=== PATIENT | female | born 1960 | race Caucasian/White ===

== ENCOUNTER 2019-06-20 01:06 | Day surgery (SDC) | payer BC, SELFPAY ==
[2019-06-15 09:17] VITALS: BMI 42.7
[2019-06-20 07:58] VITALS: BMI 48.4
--- NOTE | 2019-06-20 08:14 | WPDANESEPPF ---
Anes - Initial Pre Proc Eval Procedure: Operation Date: 06/20/19 09:00 Proposed Procedures p Esophagogastroduodenoscopy - Des Banks MD Date/Time: 06/20/19 08:14 Surgeon: Des Banks MD Pre Op Diagnosis: Gerd/ Esophageal Web Patient Data Age: 58 Gender: F Height: 5 ft 10 in Weight: 153 kg Allergies Allergy/AdvReac Type Severity Reaction Status Date / Time No Known Allergies Allergy Unknown Verified 06/20/19 07:57 Home Medications Medication Instructions Recorded Confirmed Type indapamide 2.5 mg tablet 2.5 mg PO DAILY #90 tablet 03/22/19 06/15/19 Rx potassium chloride 20 mEq 20 meq PO DAILY #90 tablet 03/23/19 06/15/19 Rx tablet,extended release metoprolol tartrate 100 mg tablet 100 mg PO Q12H 04/25/19 06/15/19 History pantoprazole 40 mg tablet,delayed 40 mg PO QAM 04/25/19 06/15/19 History release Patient hx anesthesia problems: none Family hx anesthesia problems: none [facility] Past Medical History Medical History (Updated 05/30/19 @ 17:19 by Ale Muse MD) Abscess of anal and rectal regions BPPV (benign paroxysmal positional vertigo) Essential hypertension GERD with esophagitis History of one miscarriage Hyperlipidemia Pre-diabetes Surgical History Surgical History H/O section H/O dilation and curettage History of removal of cyst Tubal ligation status Social History Social History Smoking status: Never smoker Second hand tobacco smoke exposure: Yes Alcohol intake: current Substance use: current Substance use type: marijuana Gender identity (if verbalized by the patient): Female Anes - Eval Final PreProcedure Day of Procedure 06/20/19 08:14 Patient weight: morbidly obese Heart: regular rate and rhythm Lungs: clear to auscultation Airway: Mallampati scale class III Neurological: alert and oriented Last oral intake: >/= 8 hours ASA classification: III Emergent: no Anesthetic plan: proceed Anesthesia type and monitoring: general and standard monitoring Informed Consent: The patient's anesthetic plan and its attendant risks and benefits were discussed with the patient/family/POA. Questions were solicited and answers provided to the satisfaction of the patient/family/POA.
[2019-06-20 08:19] VITALS: BP 188/110; PULSE 59; RESP 18; TEMP 36.6; O2SAT 95
[2019-06-20] MEDS: LACTATED RINGERS 1,000 ML 150 ML IV CONT (08:22)
[2019-06-20 08:23] VITALS: BP 156/78
--- NOTE | 2019-06-20 08:56 | P.CONGI_ITS ---
Assessment and Plan Additional Plan This is a 58-year-old white female patient seen in evaluation at the request of Dr. Ale Muse. Patient has a history of dysphagia in GE reflux disease. EGD in February 2019 revealed severe esophagitis, distal esophageal web, and possible underlying Geiger's mucosa. She feels much improved but continues to have some mid epigastric discomfort. She swallows much better but may have some difficulty with really large pieces of food. She currently has no ongoing heartburn regurgitation is improved taking Protonix 40 mg p.o. daily. Past medical history is significant for GE reflux disease. Pre diabetes. Hyperlipidemia. Medications include pantoprazole 40 mg p.o. daily. Metoprolol. Indapamide. Potassium. No known drug allergies. Family history is noncontributory. On physical exam patient is alert. Vital signs stable. HEENT exam unremarkable. She is anicteric. Lungs are clear to auscultation and percussion. Heart is without murmur or extra sounds. Abdominal exam bowel sounds are present soft nontender with no organomegaly. Digital external rectal exam deferred today. Impression 1. GE reflux disease. She has a history of esophageal stricture ring. 2. Obesity. Plan is for follow-up EGD today to dilate if necessary and biopsy to exclude Geiger's esophagus. Anti-reflux measures are strongly encourage. In long-term acid suppression with pantoprazole also suggested. GI Consult Note Consult date/time: 06/20/19 08:56 HPI: Mandy Fontana is a 58 year old female [facility] Past Medical History Medical History (Updated 05/30/19 @ 17:19 by Ale Muse MD) Abscess of anal and rectal regions BPPV (benign paroxysmal positional vertigo) Essential hypertension GERD with esophagitis History of one miscarriage Hyperlipidemia Pre-diabetes Surgical History Surgical History H/O section H/O dilation and curettage History of removal of cyst Tubal ligation status Social History Social History Smoking status: Never smoker Second hand tobacco smoke exposure: Yes Alcohol intake: current Substance use: current Substance use type: marijuana Gender identity (if verbalized by the patient): Female Meds Home Medications and Allergies Home Medications Medication Instructions Recorded Confirmed Type indapamide 2.5 mg tablet 2.5 mg PO DAILY #90 tablet 03/22/19 06/15/19 Rx potassium chloride 20 mEq 20 meq PO DAILY #90 tablet 03/23/19 06/15/19 Rx tablet,extended release metoprolol tartrate 100 mg tablet 100 mg PO Q12H 04/25/19 06/15/19 History pantoprazole 40 mg tablet,delayed 40 mg PO QAM 04/25/19 06/15/19 History release Allergies Allergy/AdvReac Type Severity Reaction Status Date / Time No Known Allergies Allergy Unknown Verified 06/20/19 07:57 Vital Signs Vital Signs - 24 hr 06/20/19 08:19 06/20/19 08:23 Temperature 36.6 C Pulse Rate 59 L Respiratory Rate 18 Blood Pressure 188/110 H 156/78 H Pulse Oximetry 95
[2019-06-20] MEDS: BENZOCAINE (*SP) 60 ML SPRAY CAN (HURRICAINE) 1 SPRAY MUCOUS MEM (09:06)
[2019-06-20 09:18] VITALS: BP 163/93; PULSE 61; RESP 20; O2SAT 97
[2019-06-20 09:28] VITALS: BP 158/88; PULSE 61; RESP 18; O2SAT 97
[2019-06-20 09:38] VITALS: BP 170/90; PULSE 58; RESP 20; O2SAT 97
== END 2019-06-20 10:08 | disposition home or self-care (01) ==
PROVIDERS: PCP Family Medicine; Visit Provider Internal Medicine Gastroenterology
PROC: 0DJ08ZZ Inspection of Upper Intestinal Tract, Via Natural or Artificial Opening Endoscopic (ICD-10-PCS; CPT 43235; principal; 2019-06-20 09:00)
DX: Q39.4 Esophageal web (principal); K21.9 Gastro-esophageal reflux disease without esophagitis; I10 Essential (primary) hypertension; E78.5 Hyperlipidemia, unspecified; R73.03 Prediabetes; F12.90 Cannabis use, unspecified, uncomplicated
CPT/HCPCS: 43239; 43450; 88305; J2704; J7120

== ENCOUNTER 2021-02-16 10:24 | Outpatient (CLI) | payer BC, SELFPAY ==
--- NOTE | ~2021-02-16 | MM_ITS ---
EXAMINATION: MM screening anita BI w linette HISTORY: Screening mammogram, family history of breast cancer in her sister. TECHNIQUE: Craniocaudal and mediolateral oblique 3-D tomosynthesis images were obtained and synthetic 2-D images were generated. CAD analysis was submitted and interpreted. COMPARISON: 07/12/2013, 07/06/2012 BREAST PARENCHYMAL COMPOSITION: There are scattered areas of fibroglandular density. FINDINGS: There is no evidence of suspicious mass, calcification, or architectural distortion to sugg est malignancy in either breast. There has been no suspicious interval change. IMPRESSION: 1. No mammographic evidence of malignancy. 2. Recommend routine screening mammography in one year. BI-RADS Category 1: Negative Reviewed, dictated and finalized at location A.
== END 2021-02-16 10:25 | disposition home or self-care (01) ==
LOC: ANHIMG 10:26
PROVIDERS: PCP Family Medicine; Visit Provider Physician Assistant
DX: Z12.31 Encounter for screening mammogram for malignant neoplasm of breast (principal)
CPT/HCPCS: 77063; 77067

== ENCOUNTER → 2021-05-31 00:59 | Outpatient (CLI) | payer BC, SELFPAY ==
[2021-06-01 18:18] LABS: SARS-CoV-2 RNA PCR Positive
== END ==
PROVIDERS: PCP Family Medicine; Visit Provider Internal Medicine Gastroenterology
DX: U07.1 COVID-19 (principal)
CPT/HCPCS: C9803; U0003; U0005

== ENCOUNTER 2021-07-03 01:45 | Day surgery (SDC) | payer BC, SELFPAY ==
--- NOTE | 2021-06-25 14:28 | SUR.PREOP ---
Report to the Outpatient Waiting Room, entrance under the green pavilion located off [facility], at time __0600 on date __07/03/21 . OR Time: . - You will be asked a series of questions to screen for COVID 19 for your protection. - A mask is required within the hospital. - No visitors are allowed at this time. Preoperative COVID Testing Requirements: No COVID Test needed if: (proof is required; if not received patient will have Rapid Test prior to entry) - Patient has received COVID Vaccine at least 14 days prior to procedure date or - Patient has positive COVID test result within last 90 days of surgery date. COVID Test needed if above criteria is not met If not COVID vaccinated a COVID test must be conducted within 72 hours of surgery and patient is asked to isolate self from time of testing until procedure. You will go to the [facility] for your COVID testing. The [facility] site is located at the corner of [address] [facility]. You will only be called if COVID results are positive and your surgeon may reschedule your elective surgery date. Patients may have clear liquids (water, carbonated beverages, clear teas, apple juice) until 3 hours prior to surgery with a maximum of 20 ounces. - No food from midnight until time of surgery - Infants may have breast milk until 4 hours before surgery, infant formula 6 hours prior to surgery. - Children will be allowed to drink immediately following surgery. If applicable, please bring a bottle or sippy cup to assist with drinking. Juice, water, soda, and popsicles are readily available. For infants on formula, please bring formula the day of surgery. Pacifiers are allowed. Take the following medications with a SIP of water the morning of surgery: METOPROLOL Medications to discontinue per physician NONE Date to take last dose Please no make-up, nail bahamian, hairspray, perfume, deodorant, or body powder the day of surgery. No jewelry (including any body piercings) or valuables the day of surgery, leave them at home. Please take a shower or bath the night before, or the morning of, surgery with an antibacterial soap. Wear comfortable, loose fitting clothing. Children are encouraged to wear pajamas. - Jewelry must be removed prior to entering the operating room. Rings and piercings that are not removed may be cut off. - The hospital will not accept responsibility for valuables. - Please leave all valuables, including medications, at home the day of surgery. If you are going home after surgery, a licensed power screwdriver operator must drive you home. - NO public transportation without another adult. - We recommend that an adult stay with you for 24 hours following discharge. - We also recommend that you do not drive, make important decision, drink alcoholic beverages, or take any drugs that were not prescribed by your health care provider for at least 24 hours after your discharge time. For Pediatric surgeries, we recommend two adults accompany the child home (only one inside the building at this time). Follow any additional instructions given to you from your surgeon. Telephone instructions given to ___PATIENT and asked if any additional questions and then verbalized understanding. Patient advised to call surgeon office or pre surgery nurse liaison [phone] if any additional questions.
[2021-06-25 14:36] VITALS: BMI 45.8
--- NOTE | 2021-07-02 13:50 | WPDANESEPPF ---
Anes - Initial Pre Proc Eval Procedure: Operation Date: 07/03/21 07:30 Proposed Procedures p Excision of Right Dorsal Wrist Mass, Excision of Left Ulnar Forearm Mass - Saturnino Carranza MD Date/Time: 07/02/21 13:50 Surgeon: aSturnino Carranza MD Pre Op Diagnosis: Rt dorsal wrist mass, Lt ulnar forearm mass Patient Data Age: 60 Gender: F Height: 1.78 m Weight: 145 kg Allergies Allergy/AdvReac Type Severity Reaction Status Date / Time No Known Allergies Allergy Unknown Verified 07/03/21 07:19 Home Medications Medication Instructions Recorded Confirmed Type metoprolol tartrate 100 mg PO Q12H 05/30/21 07/03/21 History atorvastatin 20 mg tablet 20 mg PO HS #90 tablet 06/20/21 07/03/21 Rx indapamide 2.5 mg tablet 2.5 mg PO HS #90 tablet 06/20/21 07/03/21 Rx pantoprazole 40 mg tablet,delayed 40 mg PO HS #90 tablet 06/20/21 07/03/21 Rx release potassium chloride 20 mEq 20 meq PO HS #90 tablet 06/20/21 07/03/21 Rx tablet,extended release ergocalciferol (vitamin D2) 1,250 1,250 mcg PO WEEKLY #14 cap 06/21/21 07/03/21 Rx mcg (50,000 unit) capsule Patient hx anesthesia problems: none Family hx anesthesia problems: none Results Review: All pre-operative results and documents have been reviewed as part of the pre-operative evaluation. [facility] Past Medical History Medical History (Updated 05/09/21 @ 22:40 by Kim Sommers MD) Abscess of anal and rectal regions BPPV (benign paroxysmal positional vertigo) Chest congestion Diabetes Dysfunction of right eustachian tube Essential hypertension GERD with esophagitis History of one miscarriage Hyperlipidemia Pre-diabetes Surgical History Surgical History H/O section H/O dilation and curettage History of removal of cyst Tubal ligation status Family History Family History Other Carcinoma of colon Diabetes mellitus Family history of cardiovascular disease Family history of coronary artery disease Family history of lung cancer Family history of malignant neoplasm Social History Social History Smoking status: Never smoker Second hand tobacco smoke exposure: Yes Alcohol intake: never Alcohol use details: Maybe twice a year. Substance use: current Substance use type: marijuana Other substance usage details: daily for chronic back pain Last use: 05/18/21 Living arrangements: with family Gender identity (if verbalized by the patient): Female Spiritual care concerns: No Anes - Eval Final PreProcedure Day of Procedure 07/02/21 13:50 Patient weight: morbidly obese Heart: regular rate and rhythm Lungs: clear to auscultation Airway: Mallampati scale class III Neurological: alert and oriented Last oral intake: >/= 8 hours ASA classification: III Emergent: no Anesthetic plan: proceed Anesthesia type and monitoring: general GIVS and standard monitoring Results Review: All pre-operative results and documents have been reviewed as part of the pre-operative evaluation. Informed Consent: The patient's anesthetic plan and its attendant risks and benefits were discussed with the patient/family/POA. Questions were solicited and answers provided to the satisfaction of the patient/family/POA.
[2021-07-03 06:30] VITALS: BP 195/98; PULSE 66; RESP 16; TEMP 36.7; O2SAT 97
[2021-07-03] MEDS: LACTATED RINGERS 1,000 ML 30 ML IV CONT ×2 (06:45→08:34)
--- NOTE | 2021-07-03 07:10 | WPDHPUPDATE1 ---
History and Physical Update Update Date/Time: 07/03/21 07:10 History and Physical has been reviewed, including an updated exam of the patient. There are NO changes in the patient's condition. Risks, benefits, and alternatives have been discussed and questions answered. Patient agrees to proceed with procedure.
[2021-07-03] MEDS: LIDO 1%/EPINEPHRINE/PF 1:200,000 30 ML VIAL XX (08:25)
[2021-07-03 08:34] VITALS: BP 166/77; PULSE 63; RESP 16; O2SAT 96
--- NOTE | 2021-07-03 08:39 | P.OP_ITS ---
Procedure Note - Detailed Date of Procedure 07/03/21 Pre-op Diagnosis Rt dorsal wrist mass, Lt ulnar forearm mass Post-op Diagnosis other (Right dorsal wrist ganglion cyst. Subcutaneous mass of unspecified behavior.) Procedure Performed Excision of right dorsal wrist ganglion cyst. Excision of subcutaneous mass of unspecified behavior left ulnar forearm. Surgeon Saturnino Carranza MD [employer] Findings Ganglion cyst of the right dorsal wrist. Fatty mass of the left ulnar forearm Description of Procedure The right dorsal wrist and the left ulnar forearm sites were marked with the patient's cooperation in the holding area. She was rolled to the operating room and placed supine on the operating table. Both extremities were prepped on separate arm boards. A time-out was held and confirmed. She was given IV sedation. The 2 sites were identified again and marked for the incisions and locally anesthetized with 1% lidocaine with epinephrine. The right upper extremity was done 1st with elevation of the forearm tourniquet to 250 milliliter of mercury. The transverse incision was made and blunt dissection through the subcutaneous tissue to the level of the extensor tendons was carried out and the dorsal surface of the slightly purpuric ganglion cyst was identified. The cyst was over cm and diameter. Was carefully dissected around its periphery down to the joint capsule. Was taken off at that level the joint capsule was not compromised. The specimen was removed but not sent to pathology. Several bleeding points were electrocoagulated. No deeper subcutaneous tissues were placed. The skin was repaired in the superficial fascia with 4-0 Monocryl and in the dermis with a running 4-0 Monocryl. Attention was turned then to the left side the site was easily identified by digital palpation in the longitudinal incision was made over the ulnar border of the ulna. Blunt dissection revealed a fat colored firm lobulated mass loosely attached to the periosteum. This was removed with sharp and blunt dissection the specimen was sent to pathology. This wound was then closed with interrupted 4-0 Monocryl in the dermis and a Xeroform gauze bandage applied over that. The right wrist was dressed in similar fashion both sides had Juan Daniel wraps the patient is discharged from the operating room stable condition a prescription for hydrocodone 5/ number 8 was sent to her pharmacy [facility] No Packing No Pathology yes Complications No immediate complications Condition stable Disposition same day
[2021-07-03 08:41] LABS: Glucose Point of Care 116 mg/dl (65-105)
[2021-07-03 09:00] VITALS: BP 177/72; PULSE 58; RESP 16
[2021-07-03 09:30] VITALS: BP 171/83; PULSE 56; RESP 16; O2SAT 96
== END 2021-07-03 09:50 | disposition home or self-care (01) ==
PROVIDERS: PCP Family Medicine; Visit Provider Plastic Surgery
PROC: (CPT 25111; principal; 2021-07-03 07:30)
DX: M67.431 Ganglion, right wrist (principal); D17.21 Benign lipomatous neoplasm of skin and subcutaneous tissue of right arm; I10 Essential (primary) hypertension; E78.5 Hyperlipidemia, unspecified; K21.9 Gastro-esophageal reflux disease without esophagitis; E11.9 Type 2 diabetes mellitus without complications; F12.90 Cannabis use, unspecified, uncomplicated; E66.01 Morbid (severe) obesity due to excess calories; Z68.42 Body mass index [BMI] 45.0-49.9, adult
CPT/HCPCS: 25111; 25075; 82948; 88304; A9270; J1100; J2250; J2405; J2704; J3010; J7120

== ENCOUNTER 2021-07-04 00:23 | Day surgery (SDC) | payer BC, SELFPAY ==
[2021-05-30 14:29] VITALS: BMI 41.6
--- NOTE | 2021-06-01 19:16 | SUR.PREOP ---
CALLED PATIENT WITH HER POSITIVE COVID TEST RESULTS. PT STATED SHE THOUGHT SHE HAS A SINUS INFECTION AND WAS PLACED ON ANTIBIOTICS WITH NO IMPROVEMENT AND WAS WANDERING IF SHE MAYBE COVID POSITIVE. OFFERED TO TALK WITH DOCTOR ABOUT STILL DOING HER CASE ON THURSDAY AND PATIENT DECLINED AND SAID SHE DIDN'T WANT TO PUT ANYONE RISK. PT RE-SCHEDULED ON 07-04 AT 830 AM PROCEDURE TIME WITH AN ARRIVAL TIME OF 700 AM.
[2021-06-26 16:05] VITALS: BMI 41.6
--- NOTE | 2021-07-04 07:25 | WPDGICN ---
Assessment and Plan Assessment and plan (1) Dysphagia: Code(s): R13.10 - Dysphagia, unspecified Status: Acute Assessment and Plan: Patient has dysphagia. With a history of acid reflux and distal esophageal web formation. Plan is for EGD to assess more thoroughly possibly for dilatation of this web. Further recommendations will be given after endoscopy. Continuing PPI therapy advised. (2) Geiger's esophagus: Code(s): K22.70 - Geiger's esophagus without dysplasia Status: Acute Assessment and Plan: Patient known to have Geiger's esophagus on the basis of chronic GE reflux. Previously no evidence of dysplasia. Plan is for surveillance EGD now and consider this at least a 3 year intervals in the future. (3) Morbid obesity with body mass index (BMI) of 45.0 to 49.9 in adult: Code(s): E66.01 - Morbid (severe) obesity due to excess calories; Z68.42 - Body mass index [BMI] 45.0-49.9, adult Status: Acute Assessment and Plan: Weight loss with dietary calorie restriction increase activity is strongly encouraged. GI Consult Note Consult date/time: 07/04/21 07:25 HPI: Mandy Fontana is a 60 year old female presents for EGD. Patient has a known history of Geiger's esophagus. She has noticed over the last several months difficulty swallowing foods. Foods even liquids will hang up in the lower chest on swallowing. She denies any significant heartburn. She has been maintained on pantoprazole 40mg p.o. daily. Her last EGD in 2019 revealed distal esophageal web that was dilated. Plan is for recurrent EGD at this time. Patient reports recent wrist surgery for ganglion cyst. Hands are still bandaged. Review of Systems Review of Systems: All systems reviewed & are unremarkable except as noted in HPI and below PMFSH Past Medical History Medical History (Updated 07/04/21 @ 07:27 by Des Banks MD) Abscess of anal and rectal regions BPPV (benign paroxysmal positional vertigo) Chest congestion Diabetes Dysfunction of right eustachian tube Essential hypertension GERD with esophagitis History of one miscarriage Hyperlipidemia Pre-diabetes Surgical History Surgical History H/O section H/O dilation and curettage History of removal of cyst Tubal ligation status Family History Family History Other Carcinoma of colon Diabetes mellitus Family history of cardiovascular disease Family history of coronary artery disease Family history of lung cancer Family history of malignant neoplasm Social History Social History Smoking status: Never smoker Second hand tobacco smoke exposure: Yes Alcohol intake: never Alcohol use details: Maybe twice a year. Substance use: current Substance use type: marijuana Other substance usage details: daily for chronic back pain Last use: 05/18/21 Living arrangements: with family Gender identity (if verbalized by the patient): Female Spiritual care concerns: No Meds Home Medications and Allergies Home Medications Medication Instructions Recorded Confirmed Type metoprolol tartrate 100 mg PO Q12H 05/30/21 07/03/21 History atorvastatin 20 mg tablet 20 mg PO HS #90 tablet 06/20/21 07/03/21 Rx indapamide 2.5 mg tablet 2.5 mg PO HS #90 tablet 06/20/21 07/03/21 Rx pantoprazole 40 mg tablet,delayed 40 mg PO HS #90 tablet 06/20/21 07/03/21 Rx release potassium chloride 20 mEq 20 meq PO HS #90 tablet 06/20/21 07/03/21 Rx tablet,extended release ergocalciferol (vitamin D2) 1,250 1,250 mcg PO WEEKLY #14 cap 06/21/21 07/03/21 Rx mcg (50,000 unit) capsule hydrocodone-acetaminophen 1 tablet PO Q6H PRN #10 tablet MDD 07/03/21 Rx 6 Allergies Allergy/AdvReac Type Severity Reaction Status Date / Time No Known Allergi
[2021-07-04 07:26] VITALS: BP 182/92; PULSE 63; RESP 18; TEMP 36.8; O2SAT 97; BMI 46.8
[2021-07-04] MEDS: LACTATED RINGERS 1,000 ML 30 ML IV CONT (07:35)
--- NOTE | 2021-07-04 07:38 | WPDANESEPPF ---
Anes - Initial Pre Proc Eval Procedure: Operation Date: 07/04/21 08:30 Proposed Procedures p Esophagogastroduodenoscopy - Des Banks MD Date/Time: 07/04/21 07:38 Surgeon: Des Banks MD Pre Op Diagnosis: dysphagia Patient Data Age: 60 Gender: F Height: 1.78 m Weight: 148.2 kg Last Vital Signs Temp 36.8 C 07/04/21 07:26 Pulse 63 07/04/21 07:26 Resp 18 07/04/21 07:26 BP 182/92 H 07/04/21 07:26 Pulse Ox 97 07/04/21 07:26 Allergies Allergy/AdvReac Type Severity Reaction Status Date / Time No Known Allergies Allergy Unknown Verified 07/04/21 07:24 Home Medications Medication Instructions Recorded Confirmed Type metoprolol tartrate 100 mg PO Q12H 05/30/21 07/03/21 History atorvastatin 20 mg tablet 20 mg PO HS #90 tablet 06/20/21 07/03/21 Rx indapamide 2.5 mg tablet 2.5 mg PO HS #90 tablet 06/20/21 07/03/21 Rx pantoprazole 40 mg tablet,delayed 40 mg PO HS #90 tablet 06/20/21 07/03/21 Rx release potassium chloride 20 mEq 20 meq PO HS #90 tablet 06/20/21 07/03/21 Rx tablet,extended release ergocalciferol (vitamin D2) 1,250 1,250 mcg PO WEEKLY #14 cap 06/21/21 07/03/21 Rx mcg (50,000 unit) capsule hydrocodone-acetaminophen 1 tablet PO Q6H PRN #10 tablet MDD 07/03/21 Rx 6 Patient hx anesthesia problems: none Family hx anesthesia problems: none Results Review: All pre-operative results and documents have been reviewed as part of the pre-operative evaluation. COUNTS INCLUDE 234 BEDS AT THE [facility] Past Medical History Medical History Abscess of anal and rectal regions BPPV (benign paroxysmal positional vertigo) Chest congestion Diabetes Dysfunction of right eustachian tube Essential hypertension GERD with esophagitis History of one miscarriage Hyperlipidemia Pre-diabetes Surgical History Surgical History H/O section H/O dilation and curettage History of removal of cyst Tubal ligation status Family History Family History Other Carcinoma of colon Diabetes mellitus Family history of cardiovascular disease Family history of coronary artery disease Family history of lung cancer Family history of malignant neoplasm Social History Social History Smoking status: Never smoker Second hand tobacco smoke exposure: Yes Alcohol intake: never Alcohol use details: Maybe twice a year. Substance use: current Substance use type: marijuana Other substance usage details: daily for chronic back pain Last use: 05/18/21 Living arrangements: with family Gender identity (if verbalized by the patient): Female Spiritual care concerns: No Anes - Eval Final PreProcedure Day of Procedure 07/04/21 07:38 Patient weight: morbidly obese Heart: regular rate and rhythm Lungs: clear to auscultation Airway: Mallampati scale class III Neurological: alert and oriented Last oral intake: >/= 8 hours ASA classification: III Emergent: no Anesthetic plan: proceed Anesthesia type and monitoring: general GIVS and standard monitoring Results Review: All pre-operative results and documents have been reviewed as part of the pre-operative evaluation. Informed Consent: The patient's anesthetic plan and its attendant risks and benefits were discussed with the patient/family/POA. Questions were solicited and answers provided to the satisfaction of the patient/family/POA.
[2021-07-04] MEDS: BENZOCAINE (*SP) 60 ML SPRAY CAN (HURRICAINE) 1 SPRAY MUCOUS MEM (08:40)
[2021-07-04 08:42] VITALS: BP 167/97; PULSE 73; RESP 16; O2SAT 95
[2021-07-04 08:52] VITALS: BP 161/97; PULSE 69; RESP 18; O2SAT 97
[2021-07-04 09:02] VITALS: BP 174/98; PULSE 61; RESP 19; O2SAT 97
== END 2021-07-04 09:21 | disposition home or self-care (01) ==
PROVIDERS: PCP Family Medicine; Visit Provider Internal Medicine Gastroenterology
PROC: 0DJ08ZZ Inspection of Upper Intestinal Tract, Via Natural or Artificial Opening Endoscopic (ICD-10-PCS; CPT 43235; principal; 2021-07-04 08:30)
DX: R13.10 Dysphagia, unspecified (principal); K22.70 Barrett's esophagus without dysplasia; E66.01 Morbid (severe) obesity due to excess calories; Z68.42 Body mass index [BMI] 45.0-49.9, adult; E11.9 Type 2 diabetes mellitus without complications; K21.9 Gastro-esophageal reflux disease without esophagitis; I10 Essential (primary) hypertension; E78.5 Hyperlipidemia, unspecified; F12.90 Cannabis use, unspecified, uncomplicated; Z79.891 Long term (current) use of opiate analgesic
CPT/HCPCS: 43239; 43450; 88305; J2704; J7120

== ENCOUNTER 2021-12-26 13:12 | Outpatient (CLI) | payer BC, SELFPAY ==
[2021-12-26 19:05] LABS: Alanine Aminotransferase 29 U/L (6-35); Albumin Level 4.4 g/dL (3.5-5.1); Alkaline Phosphatase 140 U/L (38-126); Anion Gap 8 mmol/L (8-16); Aspartate Amino Transferase 28 U/L (14-36); Bilirubin,Total 1.1 mg/dL (0.2-1.3); Blood Urea Nitrogen 17 mg/dL (7-17); Calcium 10.3 mg/dL (8.4-10.2); Carbon Dioxide 31 mmol/L (22-30); Chloride 98 mmol/L (98-107); Cholesterol 174 mg/dL (0-200); Estimated Glomerular Filt Rate 57; Glucose 137 mg/dL (65-110); HDL Direct 45 mg/dL; Potassium 3.5 mmol/L (3.4-5.0); Sodium 137 mmol/L (137-145); Triglycerides 154 mg/dL (<150)
[2021-12-26 19:16] LABS: LDL Cholesterol Direct 95 mg/dL
[2021-12-26 19:22] LABS: Hemoglobin A1C 6.7 % (<5.7)
[2021-12-26 19:27] LABS: Vitamin D 25 Hydroxy 45.8 ng/mL
== END 2021-12-26 13:13 | disposition home or self-care (01) ==
LOC: ANHGOSHLAB 13:14
PROVIDERS: PCP Family Medicine; Visit Provider Family Medicine
DX: E78.2 Mixed hyperlipidemia (principal); I10 Essential (primary) hypertension; R73.03 Prediabetes; E55.9 Vitamin D deficiency, unspecified
CPT/HCPCS: 36415; 80053; 80061; 82306; 83036

== ENCOUNTER 2022-04-25 13:05 | Outpatient (CLI) | payer BC, SELFPAY ==
[2022-04-25 19:41] LABS: Anion Gap 7 mmol/L (8-16); Blood Urea Nitrogen 18 mg/dL (7-17); Calcium 9.8 mg/dL (8.4-10.2); Carbon Dioxide 33 mmol/L (22-30); Chloride 95 mmol/L (98-107); Estimated Glomerular Filt Rate 51; Glucose 123 mg/dL (65-110); Potassium 3.6 mmol/L (3.4-5.0); Sodium 135 mmol/L (137-145)
== END 2022-04-25 13:06 | disposition home or self-care (01) ==
LOC: ANHGOSHLAB 13:07
PROVIDERS: PCP Family Medicine; Visit Provider Physician Assistant
DX: E87.5 Hyperkalemia (principal)
CPT/HCPCS: 36415; 80048

== ENCOUNTER 2022-08-11 12:30 | Outpatient (CLI) | payer BC, SELFPAY ==
[2022-08-11 19:31] LABS: Anion Gap 6 mmol/L (8-16); Blood Urea Nitrogen 19 mg/dL (7-17); Calcium 10.6 mg/dL (8.4-10.2); Carbon Dioxide 33 mmol/L (22-30); Chloride 103 mmol/L (98-107); Estimated Glomerular Filt Rate > 60; Glucose 140 mg/dL (65-110); Potassium 3.9 mmol/L (3.4-5.0); Sodium 142 mmol/L (137-145)
== END 2022-08-11 12:31 | disposition home or self-care (01) ==
LOC: ANHGOSHLAB 12:31
PROVIDERS: PCP Family Medicine; Visit Provider Physician Assistant
DX: N28.9 Disorder of kidney and ureter, unspecified (principal)
CPT/HCPCS: 36415; 80048

== ENCOUNTER 2023-07-10 13:03 | Emergency (ER) | payer BC, SELFPAY ==
--- NOTE | ~2023-07-10 | XR_ITS ---
EXAMINATION: XR chest 2V 07/10/2023 13:40 INDICATION: Cough, shortness of breath and low oxygen saturation. PROCEDURE: 2 view chest COMPARISON: Comparison to multiple prior studies sequentially, with oldest reviewed study dated 06/15. FINDINGS: The lungs are clear. The cardiomediastinal silhouette is within normal limits. There are no pleural effusions. There is no pneumothorax suspected. IMPRESSION: 1: NO ACUTE CARDIOPULMONARY DISEASE. Reviewed, dictated and finalized at location A. TH AND SAFETY ADVISOR
[2023-07-10 13:14] VITALS: BP 151/99; PULSE 78; RESP 16; TEMP 37; O2SAT 94
[2023-07-10 13:21] VITALS: BP 151/99; PULSE 78; RESP 16; TEMP 37; O2SAT 94
--- NOTE | 2023-07-10 13:26 | ED.URI ---
HPI - URI/Sore Throat General Chief Complaint: Upper Respiratory Infection Stated Complaint: Congestion/can't catch breath Time Seen by Provider: 07/10/23 13:26 Source: patient Mode of arrival: ambulatory Limitations: no limitations History of Present Illness HPI Narrative: 62 yo F presents with c/o cough, chest congestion, wheezing and SOB for past few days. Reports cough since mid may. Has not seen PCP for cough. Concerned for pneumonia due to recent SOB with coughing. Reports hx of bronchitis. All systems reviewed and negative except as noted above. Related Data Allergies Allergy/AdvReac Type Severity Reaction Status Date / Time No Known Allergies Allergy Unknown Verified 04/25/22 14:09 Review of Systems Review of Systems: CONSTITUTIONAL: Denies fever, chills, or sweats. Reports fatigue. EYES: Denies visual changes, redness, or discharge. ENT: Reports rhinorrhea, congestion. Denies sore throat, or otalgia. CARDIOVASCULAR: Denies chest pain, palpitations, or edema. RESPIRATORY: Reports cough and dyspnea with coughing. GASTROINTESTINAL: Denies abdominal pain, nausea, vomiting, or diarrhea. GENITOURINARY: Denies dysuria or hematuria. SKIN: Denies rash or itching. MUSCULOSKELETAL: Denies back pain, joint pain, or myalgia. NEUROLOGIC: Denies headache, numbness, or weakness. PSYCHIATRIC: Denies anxiety or depression. All other systems reviewed are negative, except as documented in HPI. COUNT INCLUDES THE [facility] Past Medical History Medical History Abscess of anal and rectal regions BPPV (benign paroxysmal positional vertigo) Chest congestion Diabetes Dysfunction of right eustachian tube Essential hypertension GERD with esophagitis History of one miscarriage Hyperlipidemia Pre-diabetes Vitamin D deficiency Surgical History Surgical History H/O section H/O dilation and curettage History of removal of cyst Tubal ligation status Family History Family History Other Carcinoma of colon Diabetes mellitus Family history of cardiovascular disease Family history of coronary artery disease Family history of lung cancer Family history of malignant neoplasm Social History Social History (Updated 04/25/22 @ 14:08 by Sayra Garcia CMA) Smoking status: Never smoker Second hand tobacco smoke exposure: Yes Alcohol intake: never Alcohol use details: Maybe twice a year. Substance use: current Substance use type: marijuana Other substance usage details: daily for chronic back pain Last use: 05/18/21 Lack of Transportation: No Lack of Food: Never True Current Housing: I Have Housing Concerned About Future Housing: No Difficulty Paying Gas/Electric Bills: No Difficulty Paying for Meds: No Currently Unemployed: No Education: High School Diploma/GED Difficulty w/ Childcare or Family Care: No Living arrangements: with family Occupation/Education: retired Gender identity (if verbalized by the patient): Female Sexual Orientation (if Verbalized by the Patient): Straight or Heterosexual Spiritual care concerns: No Agree to blood products: Yes Comments At time of signature, agree with nursing past medical, surgical, social and family history. There is no relevant family history pertinent to the presenting complaint. Exam Narrative: GENERAL: This is a well-nourished, well-developed patient, in no apparent distress. HEAD: normocephalic, atraumatic. EYES: PERRL. Sclera clear/white. Vision is grossly intact. EARS: External ears normal, auditory canals clear and without drainage, TMs normal without perforation. Hearing grossly intact. NOSE: External nose normal with no obvious nasal discharge, nares without redness, no rhinorrhea. THROAT: Mucous membranes moist, posterior pharynx clear. NECK: Neck supple, non-tender
[2023-07-10] MEDS: ALBUTEROL SULFATE NEB 2.5 MG/3 ML INH INHALATION (13:57)
[2023-07-10] MEDS: predniSONE 20 MG TABLET 40 MG PO (13:57)
[2023-07-10] MEDS: IPRATROPIUM BR 0.02% INH SOLN 0.5 MG/2.5 ML VIAL INHALATION (13:57)
[2023-07-10 14:22] VITALS: PULSE 76; RESP 20
== END 2023-07-10 14:37 | disposition home or self-care (01) ==
PROVIDERS: Emergency Provider Nurse Practitioner Family; PCP Family Medicine
DX: J02.9 Acute pharyngitis, unspecified (principal); E11.9 Type 2 diabetes mellitus without complications; I10 Essential (primary) hypertension; K21.00 Gastro-esophageal reflux disease with esophagitis, without bleeding; E78.5 Hyperlipidemia, unspecified; E55.9 Vitamin D deficiency, unspecified
CPT/HCPCS: 71046; 94640; 99213; G0463; J7512

== ENCOUNTER 2023-11-02 08:54 | Outpatient (CLI) | payer BC, SELFPAY ==
[2023-11-02 13:37] LABS: Basophils Percent Auto 0.4 % (0.2-1.2); Eosinophils Absolute Auto 0.3 K/mm3 (0-0.3); Eosinophils Percent Auto 4.6 % (0-4.4); Hemoglobin 13.6 g/dL (12.0-15.0); Immature Granulocyte Absolute 0.03 K/mm3 (0.00-0.031); Immature Granulocyte Percent A 0.4 % (0-0.5); Lymphocytes Absolute Auto 2.65 K/mm3 (0.9-3.2); Lymphocytes Percent Auto 36.8 % (18.3-44.2); Mean Corpuscular HGB Conc 31.6 g/dl (32-36); Mean Corpuscular Hemoglobin 27.8 pg (26-34); Mean Corpuscular Volume 87.8 fl (80-100); Mean Platelet Volume 9.9 fl (7.4-10.4); Monocytes Absolute Auto 0.5 K/mm3 (0.1-0.6); Monocytes Percent Auto 6.3 % (2.6-8.5); Neutrophils Absolute Auto 3.7 K/mm3 (1.3-6.7); Neutrophils Percent Auto 51.5 % (45.5-73.1); Platelet Count Result 207 k/mm3 (150-375); Red Cell Distribution Width 13.6 % (11.5-14.5); White Blood Count 7.2 K/mm3 (4.5-10.0)
[2023-11-02 13:51] LABS: Alanine Aminotransferase 24 U/L (6-35); Albumin Level 4.3 g/dL (3.5-5.1); Alkaline Phosphatase 133 U/L (38-126); Anion Gap 7 mmol/L (4-12); Aspartate Amino Transferase 49 U/L (14-36); Bilirubin,Total 0.8 mg/dL (0.2-1.3); Blood Urea Nitrogen 17 mg/dL (7-17); Calcium 10.1 mg/dL (8.4-10.2); Carbon Dioxide 30 mmol/L (22-30); Chloride 104 mmol/L (98-107); Cholesterol 235 mg/dL (0-200); Estimated Glomerular Filt Rate > 60; Glucose 125 mg/dL (65-110); HDL Direct 45 mg/dL; Potassium 3.5 mmol/L (3.4-5.0); Sodium 141 mmol/L (137-145); Triglycerides 199 mg/dL (<150)
[2023-11-02 14:02] LABS: LDL Cholesterol Direct 143 mg/dL
[2023-11-02 14:09] LABS: Microalbumin Urine Random 15.6 mg/L (0-16.7)
[2023-11-02 14:11] LABS: Creatinine Urine 89.3 mg/dL; MALB Creatinine Ratio 17.5 mg/g (0-30)
== END 2023-11-02 08:55 | disposition home or self-care (01) ==
LOC: ANHGOSHLAB 08:56
PROVIDERS: PCP Family Medicine; Visit Provider Family Medicine
DX: E11.9 Type 2 diabetes mellitus without complications (principal); E78.2 Mixed hyperlipidemia; R53.83 Other fatigue; R06.09 Other forms of dyspnea
CPT/HCPCS: 36415; 80053; 80061; 82043; 83036; 84443; 85025

== ENCOUNTER 2023-12-16 08:32 | Outpatient (CLI) | payer BC, SELFPAY ==
--- NOTE | ~2023-12-16 | XR_ITS ---
Clinical Indication: Chest pain PA and lateral views of the chest: Comparison: 07/10/2023 Findings: Stable calcified left upper lobe granuloma. The lungs are otherwise clear, without evidence of focal consolidation or pleural effusion. Cardiomediastinal silhouette is within normal limits. B ones and soft tissues are unremarkable. Impression: No significant abnormality. Reviewed, dictated and finalized at location . Impression: No significant abnormality.
--- NOTE | ~2023-12-16 | NM_ITS ---
EXAMINATION: NM harjinder stress w perfusion DATE: 12/16/2023 10:18 INDICATION: Chest pain. TECHNIQUE: Rest images were obtained following intravenous administration of 9.2 mCi Tc99m tetrofosmi n (Myoview). The patient was infused intravenously with Lexiscan (regadenoson). Then, 29.7 mCi Tc99m tetrofosmin (Myoview) was administered intravenously, and stress images were obtained. Data was recon structed into short axis and horizontal and vertical long axis SPECT images. Gated SPECT images were also obtained. COMPARISON: None. FINDINGS: There is no definite reversible or fixed perfusion abnormality to suggest ischemia or infar ction. There is no segmental wall motion abnormality. Left ventricular ejection fraction measures > 70%. IMPRESSION: 1. No definite ischemia or infarct. 2. Normal left ventricular ejection fraction measuring >70%. Reviewed, dictated and finalized at location A.
--- NOTE | 2023-12-16 08:49 | EST_ITS ---
Patient Info Name: Mandy Fontana Age: 63 years : 1960 Gender: Female Ht: 70 in Wt: 300 lbs BSA: 2.66 m2 HR: 64 bpm BP: 190 / 93 mmHg Heart Rhythm: Sinus Rhythm Exam Date: 12/16/2023 9:22 AM Exam Location: Echo Lab Patient Status: Outpatient Admit Date: 12/16/2023 Staff Ordering Physician: Kim Sommers MD Attending Provider: Kim Sommers MD Exercise Technologist: Radha Guerra CT Exercise Physician: Kevin Noriega DO Exam Type: CA stress harjinder w NM Study Info Indications R07.89 - Other chest pain A regadenoson stress test was performed. Summary 1. 1. Negative lexiscan stress test for ischemic ST changes by ECG criteria. 2. 2. Baseline hypertension. 3. 3. Nuclear scan to follow and will be reported separately. Please correlate with it. 4. 4. Patient informed of the above results. Protocol: Lexiscan Stress ECG Details Stage: REST Duration (min): 4 min : 8 sec HR (bpm): 62 SBP (mmHg): 200 DBP (mmHg): 104 Stage: REST Duration (min): 12 min : 55 sec HR (bpm): 63 SBP (mmHg): 190 DBP (mmHg): 93 Stage: STAGE 1 Duration (min): 0 min : 59 sec HR (bpm): 78 SBP (mmHg): 190 DBP (mmHg): 93 Stage: RECOVERY Duration (min): 1 min : 0 sec HR (bpm): 73 SBP (mmHg): 153 DBP (mmHg): 86 Stage: RECOVERY Duration (min): 2 min : 0 sec HR (bpm): 69 SBP (mmHg): 153 DBP (mmHg): 86 Stage: RECOVERY Duration (min): 3 min : 0 sec HR (bpm): 71 SBP (mmHg): 165 DBP (mmHg): 88 Stage: RECOVERY Duration (min): 3 min : 3 sec HR (bpm): 71 SBP (mmHg): 165 DBP (mmHg): 88 Rest HR: 63 bpm Peak HR: 78 bpm Rest Sys BP: 190 mmHg Peak Sys BP: 165 mmHg Max Pred HR: 159 bpm % Max Pred HR: 49 % Target HR: 135 bpm Max RPP: 12,870 bpm*mmHg Termination Reason: Completed protocol Cardiac Symptoms: Shortness of breath Total Time: 1 min : 0 sec Rest Estevez BP: 93 mmHg Peak Estevez BP: 88 mmHg Total Dose: 0.4 mg Resting ECG Sinus rhythm. Stress ECG No ST changes. Arrhythmias None. Report Signatures
== END 2023-12-16 08:33 | disposition home or self-care (01) ==
PROVIDERS: PCP Family Medicine; Visit Provider Family Medicine
DX: R07.9 Chest pain, unspecified (principal); R06.09 Other forms of dyspnea
CPT/HCPCS: 71046; 78452; 93017; A9502; J2785

== ENCOUNTER 2024-03-16 13:00 | Outpatient (CLI) | payer BC, SELFPAY ==
[2024-03-16 20:37] LABS: Alanine Aminotransferase 26 U/L (6-35); Albumin Level 4.6 g/dL (3.5-5.1); Alkaline Phosphatase 129 U/L (38-126); Anion Gap 9 mmol/L (4-12); Aspartate Amino Transferase 43 U/L (14-36); Bilirubin,Total 1.2 mg/dL (0.2-1.3); Blood Urea Nitrogen 17 mg/dL (7-17); Calcium 10.3 mg/dL (8.4-10.2); Carbon Dioxide 29 mmol/L (22-30); Chloride 103 mmol/L (98-107); Cholesterol 241 mg/dL (0-200); Estimated Glomerular Filt Rate 56; Glucose 109 mg/dL (65-110); HDL Direct 51 mg/dL; Potassium 3.1 mmol/L (3.4-5.0); Sodium 141 mmol/L (137-145); Triglycerides 125 mg/dL (<150)
[2024-03-16 20:47] LABS: LDL Cholesterol Direct 139 mg/dL
[2024-03-16 21:33] LABS: Hemoglobin A1C 6.7 % (<5.7)
== END 2024-03-16 13:01 | disposition home or self-care (01) ==
LOC: ANHGOSHLAB 13:01
PROVIDERS: PCP Family Medicine; Visit Provider Family Medicine
DX: E11.9 Type 2 diabetes mellitus without complications (principal); E78.2 Mixed hyperlipidemia
CPT/HCPCS: 36415; 80053; 80061; 83036

== ENCOUNTER 2024-04-20 16:07 | Emergency (ER) | payer BC, SELFPAY ==
[2024-04-20 16:15] VITALS: BP 200/81; PULSE 71; RESP 14; TEMP 36.8; O2SAT 99
--- NOTE | 2024-04-20 16:15 | ED.URI ---
HPI - URI/Sore Throat General Chief Complaint: Upper Respiratory Infection Stated Complaint: wound on back/poss bronchitis Time Seen by Provider: 04/20/24 16:17 Source: patient and RN notes reviewed Mode of arrival: ambulatory Limitations: no limitations History of Present Illness MD elicited complaint: cough and sore throat Related Data Allergies Allergy/AdvReac Type Severity Reaction Status Date / Time No Known Allergies Allergy Unknown Verified 03/21/24 13:38 Review of Systems Review of Systems: CONSTITUTIONAL: Denies malaise, chills, sweats, or fever. EYES: Denies visual changes, redness, or discharge. ENT: Reports rhinorrhea, congestion CARDIOVASCULAR: Denies chest pain, palpitations, or edema. RESPIRATORY: Reports cough. Denies dyspnea. GASTROINTESTINAL: Denies abdominal pain, nausea, vomiting, diarrhea SKIN: Reports the skin tag on her back that is inflamed it has drainage. MUSCULOSKELETAL: Denies myalgia. NEUROLOGIC: Denies headache. All systems reviewed & are unremarkable except as noted in HPI and below PMFSH Past Medical History Medical History Abscess of anal and rectal regions BPPV (benign paroxysmal positional vertigo) Chest congestion Diabetes Dysfunction of right eustachian tube Essential hypertension GERD with esophagitis History of one miscarriage Hyperlipidemia Pre-diabetes Vitamin D deficiency Surgical History Surgical History H/O section H/O dilation and curettage History of removal of cyst Tubal ligation status Family History Family History Other Carcinoma of colon Diabetes mellitus Family history of cardiovascular disease Family history of coronary artery disease Family history of lung cancer Family history of malignant neoplasm Social History Social History Smoking status: Never smoker Second hand tobacco smoke exposure: Yes Alcohol intake: never Alcohol use details: Maybe twice a year. Substance use: current Substance use type: marijuana Other substance usage details: daily for chronic back pain Last use: 05/18/21 Lack of Transportation: No Lack of Food: Never True Current Housing: I Have Housing Concerned About Future Housing: No Difficulty Paying Gas/Electric Bills: No Difficulty Paying for Meds: No Currently Unemployed: No Education: High School Diploma/GED Difficulty w/ Childcare or Family Care: No Living arrangements: with family Occupation/Education: retired Gender identity (if verbalized by the patient): Female Sexual Orientation (if Verbalized by the Patient): Straight or Heterosexual Spiritual care concerns: No Agree to blood products: Yes Comments At time of signature, agree with nursing past medical, surgical, social and family history. There is no relevant family history pertinent to the presenting complaint Exam Narrative: GENERAL: Well-appearing, well-nourished, and in no acute distress. HEAD: Normocephalic EYES: PERRLA, conjunctivae clear ENT: Nares clear, turbinates edematous and erythematous, clear discharge. Mucous membranes moist. TM pearly verde with dull light reflex bilaterally; no tragal tenderness. Oropharynx not erythematous without lesions. Tonsils not enlarged and without exudate, no drooling, no hoarseness, no trismus, uvula midline. NECK: Supple. No lymphadenopathy CHEST: Clear to auscultation, breath sounds equal. No wheezing, rhonchi, rales, or stridor. No respiratory distress, speaks in full sentences. HEART: Regular rate and rhythm. No murmur heard. SKIN: Warm dry. Large skin tag with excoriation, surrounding erythema noted to the back NEURO: Alert and oriented x3. PSYCH: Normal mood and affect Course Course Emergency Course: Patient is aware of diagnosis, understands and agrees to treatment plan. Anticipatory guidance given. Patient agrees to follow-up as directed and is aware of reasons to seek care at the emergency department. Portions of this record may have been created with voice recognition software Level of Care: Express Care Visit Vital Signs Vital signs: Reviewed. MDM - URI/Sore Throat MDM Narrative Medical decision making narrative: Differential diagnosis considered: Sena virus, strep pharyngitis, allergic rhinitis, upper respiratory tract infection, sinusitis, rhinosinusitis, nasopharyngitis. viral pharyngitis, otitis media, otitis externa, pneumonia, bronchitis, viral cough syndrome, viral syndrome, and influenza. Exam findings show no acute concerns or changes; patient is non-toxic appearing and is in no distress. Patient is appropriate for outpatient treatment and follow-up. Lab Data Attestation: I reviewed the patient's lab results. Critical Care Time Critical Care Time Critical Care Time: No Discharge Plan Discharge Clinical Impression: Bronchitis, Inflamed skin tag Patient Disposition: Home, Self-Care Condition: Stable Instructions: Antibiotic Form, Acute Bronchitis (ED) Additional Instructions: Please make appoint with your primary care provider for further evaluation of your skin tag. Take medication as prescribed Recommend antihistamine such as Benadryl at night time and Zyrtec or Kelley during the day Also, recommend symptomatic treatment includes: rest, fluids, and increase humidity of the air at home. Recommend Acetaminophen as directed on the bottle to reduce fever, pain, headache. Avoid smoking/second-hand smoke. Please schedule a follow-up visit with your personal physician for further evaluation and treatment within 3-5days. Including recheck and discussion of your blood pressure. If your symptoms persist, change or worsen significantly before you can contact your personal physician then please, without delay, go to the emergency department for further evaluation. Prescriptions: New doxycycline monohydrate 100 mg tablet 100 mg PO BID 7 Days Qty: 14 0RF dextromethorphan-guaifenesin [Mucinex DM] 60-1,200 mg tablet extended release 12 hr 1 tablet PO Q12H Qty: 12 0RF methylprednisolone [Medrol (Yunior)] 4 mg tablets,dose pack See Rx Instructions .ROUTE .COMPLEX Qty: 21 0RF Rx Instructions: orally per package directions No Action albuterol sulfate 90 mcg/actuation HFA aerosol inhaler 2 puff inhalation Q4-6H PRN (Reason: shortness of breath or wheezing) Qty: 8.5 0RF (DME) Aerochamber Plus Z Stat Spacer See Rx Instructions .Route Qty: 1 0RF Rx Instructions: As directed lisinopril 20 mg tablet 20 mg PO DAILY Qty: 90 1RF ergocalciferol (vitamin D2) 1,250 mcg (50,000 unit) capsule 1,250 mcg PO WEEKLY Qty: 14 1RF indapamide 1.25 mg tablet 1.25 mg PO DAILY Qty: 90 1RF potassium chloride 20 mEq tablet extended release 20 meq PO HS Qty: 90 1RF metoprolol tartrate 100 mg tablet 100 mg PO Q12H Qty: 180 1RF pantoprazole 40 mg tablet,delayed release (DR/EC) 40 mg PO HS Qty: 90 1RF Follow-up/Referrals: Kim Sommers MD [Primary Care Provider] - Time of Disposition: 16:25
[2024-04-20 16:16] VITALS: BP 200/81; PULSE 71; RESP 14; TEMP 36.8; O2SAT 99
== END 2024-04-20 16:32 | disposition home or self-care (01) ==
PROVIDERS: Emergency Provider Nurse Practitioner; PCP Family Medicine
DX: J40 Bronchitis, not specified as acute or chronic (principal); L91.8 Other hypertrophic disorders of the skin; E11.9 Type 2 diabetes mellitus without complications; I10 Essential (primary) hypertension; K21.00 Gastro-esophageal reflux disease with esophagitis, without bleeding; E78.5 Hyperlipidemia, unspecified
CPT/HCPCS: 99213; G0463

== ENCOUNTER 2024-08-10 08:46 | Outpatient (CLI) | payer BC, SELFPAY ==
--- NOTE | ~2024-08-10 | MM_ITS ---
EXAMINATION: MM screening anita BI w linette HISTORY: Screening TECHNIQUE: Craniocaudal and mediolateral oblique 3-D tomosynthesis images were obtained and synthetic 2-D images were generated. CAD analysis was submitted and interpreted. COMPARISON: 02/16/2021 and dating back to 01/02/2011 BREAST PARENCHYMAL COMPOSITION: There are scattered areas of fibroglandular density. FINDINGS: No suspicious microcalcifications or architectural distortion. Focal asymmetry within the upper outer right breast, possibly an intramammary lymph node although not present on the previous examinations for which spot compression followed by a focused ultrasound is recommended for confirmation. IMPRESSION: Focal asymmetry within the upper outer right breast, possibly an intramammary lymph node although not present on the previous examinations for which spot compression followed by a focused ultrasound is recommended for confirmation. BI-RADS Category 0: Incomplete: Needs additional imaging evaluation. Reviewed, dictated and finalized at location A. IMPRESSION: Focal asymmetry within the upper outer right breast, possibly an intramammary l ymph node although not present on the previous examinations for which spot comp ression followed by a focused ultrasound is recommended for confirmation. BI-RADS Category 0: Incomplete: Needs additional imaging evaluation.
== END 2024-08-10 08:47 | disposition home or self-care (01) ==
LOC: ANHIMG 08:48
PROVIDERS: PCP Family Medicine; Visit Provider Family Medicine
DX: Z12.31 Encounter for screening mammogram for malignant neoplasm of breast (principal); R92.8 Other abnormal and inconclusive findings on diagnostic imaging of breast
CPT/HCPCS: 77063; 77067

== ENCOUNTER 2024-08-10 09:42 | Outpatient (CLI) | payer BC, SELFPAY ==
--- NOTE | ~2024-08-10 | XR_ITS ---
XR knee RT 3V Ordering provider: Joss Becker, DIRECTOR [employer] History: . Right knee pain . Comparison: None. FINDINGS: BONES: No acute fracture or dislocation. JOINT SPACES: Narrowing of the lateral compartment. Marginal osteophytes seen. SOFT TISSUES: Normal. IMPRESSION: No acute osseous abnormality right knee. Moderate osteoarthritic change. Reviewed, dictated and finalized at location A.
== END 2024-08-10 09:43 | disposition home or self-care (01) ==
LOC: MICIMG 09:44
PROVIDERS: PCP Nurse Practitioner Family; Visit Provider Nurse Practitioner Family
DX: M17.11 Unilateral primary osteoarthritis, right knee (principal)
CPT/HCPCS: 73562

== ENCOUNTER 2024-08-18 10:56 | Outpatient (CLI) | payer BC, SELFPAY ==
--- NOTE | ~2024-08-18 | MMUS_ITS ---
MM diagnostic anita RT w linette, US breast RT limited EXAMINATION: MM diagnostic anita RT w linette, US breast RT limited HISTORY: Focal asymmetry of the right breast TECHNIQUE: Additional 3-D tomosynthesis images of the right breast were performed and synthetic 2-D i mages were generated. CAD analysis was submitted and interpreted. High resolution Limited right breas t ultrasound was performed. COMPARISON: Comparison to multiple prior studies sequentially, with oldest reviewed study dated 06/2020. BREAST PARENCHYMAL COMPOSITION: Not dense: There are scattered areas of fibroglandular density. FINDINGS: MAMMOGRAPHIC FINDINGS: There are 2 masses in the upper outer quadrant of the right breast, posterior depth. Largest mass darwin sures 12 mm. There are no suspicious calcifications or architectural distortion. ULTRASOUND: Limited left breast ultrasound: At 10:00, 13 cm from the nipple there is an intramammary lymph node. At 10:00, 11 cm from the nipple there is an irregular shaped hypoechoic mass with internal vascularit y measuring 9 x 7 x 11 mm. IMPRESSION: 1. Solid irregular shaped 11 mm right breast mass at 10:00, 11 cm from the nipple. 2. Ultrasound-guided right breast biopsy recommended. BI-RADS category 4, suspicious findings. Reviewed, dictated and finalized at location A. IMPRESSION: 1. Solid irregular shaped 11 mm right breast mass at 10:00, 11 cm from the nipp le. 2. Ultrasound-guided right breast biopsy recommended. BI-RADS category 4, suspicious findings.
== END 2024-08-18 10:57 | disposition home or self-care (01) ==
PROVIDERS: PCP Nurse Practitioner Family; Visit Provider Student in an Organized Health Care Education/Training Program
DX: R92.8 Other abnormal and inconclusive findings on diagnostic imaging of breast (principal)
CPT/HCPCS: 76642; 77061; 77065; G0279

== ENCOUNTER 2024-09-07 01:03 | Day surgery (SDC) | payer BC, SELFPAY ==
[2024-09-05 10:02] VITALS: BMI 43.0
--- NOTE | 2024-09-06 14:02 | WPDANESEPPF ---
Anes - Initial Pre Proc Eval Procedure: Operation Date: 09/07/24 09:00 Proposed Procedures p Esophagogastroduodenoscopy&Screen Colon - Jeffery Albrecht MD Date/Time: 09/06/24 14:02 Surgeon: Jeffery Albrecht MD Pre Op Diagnosis: screening malignant neoplasm colon, [facility] Patient Data Age: 63 Gender: F Height: 1.78 m Weight: 136.2 kg Allergies Allergy/AdvReac Type Severity Reaction Status Date / Time No Known Allergies Allergy Unknown Verified 09/07/24 07:46 Home Medications ?Medication ?Instructions ?Recorded ?Confirmed ?Type ergocalciferol (vitamin D2) 1,250 1,250 mcg PO WEEKLY #14 caps 12/27/21 09/07/24 Rx mcg (50,000 unit) capsule albuterol sulfate 90 mcg/actuation 2 puff inhalation Q4-6H PRN 07/10/23 09/05/24 Rx aerosol inhaler shortness of breath or wheezing #8.5 grams inhalational spacing device #1 ea 07/10/23 09/07/24 Rx (Aerochamber Plus Z Stat spacer) metoprolol tartrate 100 mg tablet 100 mg PO Q12H #180 tabs 02/13/24 09/07/24 Rx dextromethorphan-guaifenesin ER 60 1 tablet PO Q12H #12 tabs 04/20/24 09/07/24 Rx mg-1,200 mg tab,extend release,12hr (Mucinex DM) indapamide 1.25 mg tablet 1.25 mg PO DAILY #90 tabs 05/16/24 09/07/24 Rx lisinopril 20 mg tablet 20 mg PO DAILY #90 tabs 05/16/24 09/07/24 Rx potassium chloride 20 mEq 20 meq PO HS #90 tabs 05/16/24 09/07/24 Rx tablet,extended release pantoprazole 40 mg tablet,delayed 40 mg PO HS #90 tabs 09/06/24 09/07/24 Rx release Patient hx anesthesia problems: none Family hx anesthesia problems: none Results Review: All pre-operative results and documents have been reviewed as part of the pre-operative evaluation. [facility] Past Medical History Medical History Abscess of anal and rectal regions BPPV (benign paroxysmal positional vertigo) Chest congestion Diabetes Dysfunction of right eustachian tube Essential hypertension GERD with esophagitis History of one miscarriage Hyperlipidemia Pre-diabetes Vitamin D deficiency Surgical History Surgical History H/O section H/O dilation and curettage History of removal of cyst Tubal ligation status Family History Family History Other Carcinoma of colon Diabetes mellitus Family history of cardiovascular disease Family history of coronary artery disease Family history of lung cancer Family history of malignant neoplasm Social History Social History Smoking status: Never smoker Second hand tobacco smoke exposure: Yes Alcohol intake: never Alcohol use details: Maybe twice a year. Substance use: current Substance use type: marijuana Other substance usage details: daily for chronic back pain Last use: 05/18/21 Lack of Transportation: No Lack of Food: Never True Current Housing: I Have Housing Concerned About Future Housing: No Difficulty Paying Gas/Electric Bills: No Difficulty Paying for Meds: No Currently Unemployed: No Education: High School Diploma/GED Difficulty w/ Childcare or Family Care: No Living arrangements: with family Occupation/Education: retired Gender identity (if verbalized by the patient): Female Sexual Orientation (if Verbalized by the Patient): Straight or Heterosexual Spiritual care concerns: No Agree to blood products: Yes Anes - Eval Final PreProcedure Day of Procedure 09/06/24 14:02 Patient weight: morbidly obese Heart: regular rate and rhythm Lungs: clear to auscultation Airway: Mallampati scale class II Neurological: alert and oriented Last oral intake: >/= 8 hours ASA classification: III Emergent: no Anesthetic plan: proceed Anesthesia type and monitoring: general GIVS and standard monitoring Results Review: All pre-operative results and documents have been reviewed as part of the pre-operative evaluation. Informed Consent: The patient's anesthetic plan and its attendant risks and benefits were discussed with the patient/family/POA. Questions were solicited and answers provided to the satisfaction of the patient/family/POA.
[2024-09-07 07:52] VITALS: BP 181/99; PULSE 74; RESP 18; TEMP 36.8; O2SAT 97
[2024-09-07] MEDS: LACTATED RINGERS 1,000 ML 150 ML IV CONT (08:00)
[2024-09-07] MEDS: BENZOCAINE (*SP) 60 ML SPRAY CAN (HURRICAINE) 1 SPRAY MUCOUS MEM (08:56)
--- NOTE | 2024-09-07 08:56 | PM.IMHP ---
H&P: [facility] History of Present Illness Date/Time: 09/07/24 08:56 Chief Complaint: Geiger's esophagus- dysphagia- screening colonoscopy Narrative: the patient has been diagnosed with her segment Geiger's esophagus 3 years ago. Apparently she had some stenosis that was dilated with a Mills dilator. In addition she started having dysphagia again approximately 1 year ago. He is also referred for screening colonoscopy, the last 1 was many years ago, she cannot recall when. Review of Systems Review of Systems: All systems reviewed & are unremarkable except as noted in HPI and below PMFSH Past Medical History Medical History Abscess of anal and rectal regions BPPV (benign paroxysmal positional vertigo) Chest congestion Diabetes Dysfunction of right eustachian tube Essential hypertension GERD with esophagitis History of one miscarriage Hyperlipidemia Pre-diabetes Vitamin D deficiency Surgical History Surgical History H/O section H/O dilation and curettage History of removal of cyst Tubal ligation status Family History Family History Other Carcinoma of colon Diabetes mellitus Family history of cardiovascular disease Family history of coronary artery disease Family history of lung cancer Family history of malignant neoplasm Social History Social History Smoking status: Never smoker Second hand tobacco smoke exposure: Yes Alcohol intake: never Alcohol use details: Maybe twice a year. Substance use: current Substance use type: marijuana Other substance usage details: daily for chronic back pain Last use: 05/18/21 Lack of Transportation: No Lack of Food: Never True Current Housing: I Have Housing Concerned About Future Housing: No Difficulty Paying Gas/Electric Bills: No Difficulty Paying for Meds: No Currently Unemployed: No Education: High School Diploma/GED Difficulty w/ Childcare or Family Care: No Living arrangements: with family Occupation/Education: retired Gender identity (if verbalized by the patient): Female Sexual Orientation (if Verbalized by the Patient): Straight or Heterosexual Spiritual care concerns: No Agree to blood products: Yes Meds Home Medications and Allergies Home Medications ?Medication ?Instructions ?Recorded ?Confirmed ?Type ergocalciferol (vitamin D2) 1,250 1,250 mcg PO WEEKLY #14 caps 12/27/21 09/07/24 Rx mcg (50,000 unit) capsule albuterol sulfate 90 mcg/actuation 2 puff inhalation Q4-6H PRN 07/10/23 09/05/24 Rx aerosol inhaler shortness of breath or wheezing #8.5 grams inhalational spacing device #1 ea 07/10/23 09/07/24 Rx (Aerochamber Plus Z Stat spacer) metoprolol tartrate 100 mg tablet 100 mg PO Q12H #180 tabs 02/13/24 09/07/24 Rx dextromethorphan-guaifenesin ER 60 1 tablet PO Q12H #12 tabs 04/20/24 09/07/24 Rx mg-1,200 mg tab,extend release,12hr (Mucinex DM) indapamide 1.25 mg tablet 1.25 mg PO DAILY #90 tabs 05/16/24 09/07/24 Rx lisinopril 20 mg tablet 20 mg PO DAILY #90 tabs 05/16/24 09/07/24 Rx potassium chloride 20 mEq 20 meq PO HS #90 tabs 05/16/24 09/07/24 Rx tablet,extended release pantoprazole 40 mg tablet,delayed 40 mg PO HS #90 tabs 09/06/24 09/07/24 Rx release Allergies Allergy/AdvReac Type Severity Reaction Status Date / Time No Known Allergies Allergy Unknown Verified 09/07/24 07:46 Vital Signs Vital Signs - 24 hr 09/07/24 07:52 Temperature 98.2 F Pulse Rate 74 Respiratory Rate 18 Blood Pressure 181/99 H Pulse Oximetry 97 Oxygen Delivery Room Air Exam Const: General: cooperative and healthy appearing Resp: Effort & Inspection: normal respiratory effort and able to speak in complete sentences Auscultation: clear to auscultation bilaterally Cardio: Rate: regular rate Rhythm: regular rhythm GI: Inspection: normal to inspection GI Palp: No No hepatosplenomegaly present Auscultation: normal bowel sounds Rectal Exam: deferred Skin: General skin exam: normal color Psych: Appearance: grossly normal Mental Status: mental status grossly normal Assessment and Plan Assessment and plan (1) GERD with esophagitis: Qualifiers: Esophagitis bleeding: without hemorrhage Qualified Code(s): K21.00 - Gastro-esophageal reflux disease with esophagitis, without bleeding Code(s): K21.0 - Gastro-esophageal reflux disease with esophagitis Status: Acute Assessment and Plan: The patient is deemed a good candidate for the procedure. Consent signed. Will proceed. (2) Dysphagia: Code(s): R13.10 - Dysphagia, unspecified Status: Acute
--- NOTE | 2024-09-07 09:10 | SUR.OPER ---
EGD [id number]. Colonoscopy start time 912.
[2024-09-07 09:34] VITALS: BP 172/84; PULSE 79; RESP 22; O2SAT 98
[2024-09-07 09:44] VITALS: BP 158/81; PULSE 73; RESP 25; O2SAT 98
[2024-09-07 09:54] VITALS: BP 192/98; PULSE 64; RESP 17; O2SAT 100
[2024-09-07] MEDS: hydrALAZINE HCL 20 MG/ML VIAL 5 MG IV PUSH ×2 (10:05→10:21)
[2024-09-07 10:18] VITALS: BP 191/92; PULSE 68; RESP 19; O2SAT 100
--- NOTE | 2024-09-07 10:21 | SUR.PHASEII ---
1000- Dr. Costello at bedside. BP 192/82 post-op. Per Dr. Costello give 5mg IVP hydralazine. May repeat dose x1 in 10 min if needed. 1020- BP still 191/90. Reported this to . Will administer 2nd dose.
[2024-09-07 10:30] VITALS: BP 178/72; PULSE 67; RESP 15; O2SAT 100
--- NOTE | 2024-09-07 10:39 | SUR.PHASEII ---
1030- Updated Dr. Costello with BP following second dose of hydralazine. Per MD, patient ok to discharge home and take home medications.
== END 2024-09-07 10:45 | disposition home or self-care (01) ==
PROVIDERS: PCP Family Medicine; Referring Provider Family Medicine; Visit Provider Internal Medicine Gastroenterology
PROC: 0DJ08ZZ Inspection of Upper Intestinal Tract, Via Natural or Artificial Opening Endoscopic (ICD-10-PCS; CPT 45378; principal; 2024-09-07 09:00)
DX: Z12.11 Encounter for screening for malignant neoplasm of colon (principal); D12.5 Benign neoplasm of sigmoid colon; K63.5 Polyp of colon; K62.1 Rectal polyp; K57.30 Diverticulosis of large intestine without perforation or abscess without bleeding; K22.70 Barrett's esophagus without dysplasia; K44.9 Diaphragmatic hernia without obstruction or gangrene; K21.00 Gastro-esophageal reflux disease with esophagitis, without bleeding; K22.89 Other specified disease of esophagus; E78.5 Hyperlipidemia, unspecified; E55.9 Vitamin D deficiency, unspecified; I10 Essential (primary) hypertension; E11.9 Type 2 diabetes mellitus without complications; G89.29 Other chronic pain; M54.9 Dorsalgia, unspecified; F12.90 Cannabis use, unspecified, uncomplicated; E66.01 Morbid (severe) obesity due to excess calories; Z68.41 Body mass index [BMI] 40.0-44.9, adult; Z79.51 Long term (current) use of inhaled steroids; Z98.890 Other specified postprocedural states; Z98.51 Tubal ligation status; Z87.19 Personal history of other diseases of the digestive system; Z80.0 Family history of malignant neoplasm of digestive organs; Z80.1 Family history of malignant neoplasm of trachea, bronchus and lung; Z82.49 Family history of ischemic heart disease and other diseases of the circulatory system
CPT/HCPCS: 43239; 45385; 88305; J0360; J2003; J2704; J7120

== ENCOUNTER 2024-09-12 08:24 | Outpatient (CLI) | payer BC, SELFPAY ==
--- NOTE | ~2024-09-12 | MMUS_ITS ---
EXAMINATION: US breast biopsy RT w image, MM post biopsy diagnostic RT DATE: 09/12/2024 10:13 (accession [id number]), 09/12/2024 10:08 (accession [id number]) INDICATION: 63-year-old woman with a morphologically suspicious 10.1 mm mass of the right breast pres ents for ultrasound-guided breast biopsy. BREAST PARENCHYMAL COMPOSITION:Not dense: There are scattered areas of fibroglandular density TECHNIQUE: The procedure including the risks, benefits, and alternatives was discussed with the patie nt. Risks discussed included bleeding and infection. The patient understood the risks and agreed to proceed. The skin overlying the right breast was prepped and draped in usual sterile fashion. Anesthetic was administered with 1% lidocaine subcutaneously. Limited ultrasound examination of the right breast was then again performed. At the 10:00 position of the right breast approximately 11 cm from the nipple is a single irregular f ocus of decreased echogenicity measuring 9.3 x 6.1 x 10.1 mm, suitable for biopsy. A 10G vacuum assisted biopsy device with a 9G introducer was placed using ultrasound guidance into th e abnormality at the10:00 position of the right breast and 4 core specimens were obtained under saroj nuous sonographic guidance. A coil marker was then utilized for future localization. The entry site was cleaned and dressed with Steri-Strips. There were no immediate complications. Post biopsy mammography was then performed in both the CC and MLO positions demonstrating both a coil microclip in the upper outer quadrant of the right breast with a small (15 mm) perilesional hematoma . As the patient wears a size 44 II bra, she was instructed to wear a supportive bra 08/12 for 4 days a nd 4 nights in order to reduce the risk of postbiopsy bleeding. IMPRESSION: 1. Technically successful ultrasound-guided vacuum-assisted core biopsy of a suspicious 10.1 mm mass at the 10:00 position of the right breast approximately 11 cm from the nipple, with postprocedure anita mogram for marker placement. Pathology pending Reviewed, dictated and finalized at location A. IMPRESSION: 1. Technically successful ultrasound-guided vacuum-assisted core biopsy of a lemus spicious 10.1 mm mass at the 10:00 position of the right breast approximately 1 1 cm from the nipple, with postprocedure mammogram for marker placement. Pathology pending
== END 2024-09-12 08:25 | disposition home or self-care (01) ==
PROVIDERS: PCP Family Medicine; Visit Provider Student in an Organized Health Care Education/Training Program
DX: N63.10 Unspecified lump in the right breast, unspecified quadrant (principal); R92.8 Other abnormal and inconclusive findings on diagnostic imaging of breast
CPT/HCPCS: 19083; 77065; 88305; 88342; 88360; A4648

== ENCOUNTER 2024-10-07 07:57 | Outpatient (CLI) | payer BC, SELFPAY ==
--- NOTE | 2024-10-07 08:05 | ECG_ITS ---
Test Date: 2024-10-07 08:32:30 Measurements Intervals [place] Rate: 56 P: -38 SC: 179 QRS: -8 QRSD: 103 T: 10 QT: 411 QTc: 399 Interpretive Statements SINUS BRADYCARDIA LOW QRS VOLTAGE IN PRECORDIAL LEADS [QRS DEFLECTION < 1.0 mV IN CHEST LEADS] MODERATE VOLTAGE CRITERIA FOR LVH, CONSIDER NORMAL VARIANT [MEETS CRITERIA IN ONE OF: R(aVL), S(V1), R(V5), R(V5/V6)+S(V1)] POSSIBLE ANTERIOR MYOCARDIAL INFARCTION [30 ms Q WAVE IN V3/V4, OR R < 0.2 mV IN V4], OF INDETERMINATE AGE No previous ECG available for comparison Electronically Signed On 10-07-2024 12:43:38 CDT by Nusrat Kelley M.D.
--- OUTSIDE RECORDS SUMMARY | 2024-10-07 08:08 | XMS_ITS | Encounter Summary ---
Author Organization [facility] Address [address] [place] [address] Care Team Providers Care Mold Runner Name Role Phone Kim Sommers MD Primary Care Provider [phone] Encounter Details Date Type Department Care Team (Late st Contact Info) Description 10/05/2024 External Device Data [facility] ABSTRACTION Provider, Abstract NO ADDRESS ON FILE Social History Tobacco Use Types Packs/Day Years Used Date Smoking Tobacco: Never Smokeless Tobacco: Never Alcohol Use Standard Drinks/Week Comments Yes 0 (1 standard drink = 0.6 oz pur e alcohol) Socially Comments Unknown Sex and Gender Information Value Date Recorded Sex Assigned at Not on file Legal Sex Female 10:50 AM CDT Gender Identity Not on file Sexual Orientation Not on file documented as of this encounter Plan of Treatment Upcoming Encounters Date Type Department Care Team (Late st Contact Info) Description 11/02/2024 10:00 AM CDT Office Visit [facility] Oncology and Hematology - [place] [address] [place] [address] [facility] [address] [place] [address] Sanford Og MD [address] [facility] [address] [place] [address] documented as of this encounter Visit Diagnoses Not on filedocumented in this encounter Care Teams Mold Runner Relationship Specialty Start Date End Date Kim Sommers MD [address] [place] [phone] PCP - General Family Practice 09/30/24 documented as of this encounter
--- OUTSIDE RECORDS SUMMARY | 2024-10-07 08:08 | XMS_ITS | Clinical Summary ---
Author Organization [facility] Ernestina perry [facility] Address [address] [place] [address] [place] [address] Care Team Providers Care Charge Entry Clerk Name Role Phone Kim Sommers MD Primary Care Provider [phone] Allergies No known active allergies Medications metoprolol tartrate (LOPRESSOR) 100 mg tablet Take 100 mg by mouth 2 times daily. Active potassium CHLORIDE (KLOR-CON) 10 mEq Extended Release tablet Take 10 mEq by mouth one time only. Active lisinopriL (PRINIVIL) 20 mg tablet Take 20 mg by mouth daily. Active pantoprazole (PROTONIX) 40 mg Tablet, Delayed Release (E.C.) Take 40 mg by mouth daily. Active indapamide (LOZOL) 1.25 mg tablet Take 1.25 mg by mouth daily in the morning. Active Active Problems No known active problems Encounters Date Type Department Care Team Description 10/05/2024 External Device Data [facility] ABSTRACTION Provider, Abstract 10/05/2024 External Device Data [facility] ABSTRACTION Provider, Abstract 09/30/2024 3:00 PM CDT Office Visit [facility] Oncology and Hematology - [place] [address] [facility] [address] [address] Sanford Og MD Malignant neoplasm of upper-outer quadrant of right breast in female, estrogen receptor negative (CMS/HCC) (Primary Dx) from Last 3 Months Family History Medical History Relation Name Comments No Known Problems Brother No Known Problems Child 1 No Known Problems Child 2 No Known Problems Father No Known Problems Mother Breast Cancer Sister Relation Name Status Comments Brother Alive Child 1 Alive Child 2 Alive Child 3 Father Mother Sister Social History Tobacco Use Types Packs/Day Years Used Date Smoking Tobacco: Never Smokeless Tobacco: Never Tobacco Cessation:Counseling Given: Not Answered Alcohol Use Standard Drinks/Week Comments Yes 0 (1 standard drink = 0.6 oz pur e alcohol) Socially Comments Unknown Sex and Gender Information Value Date Recorded Sex Assigned at Not on file Legal Sex Female 10:50 AM CDT Gender Identity Not on file Sexual Orientation Not on file Last Filed Vital Signs Vital Sign Reading Time Taken Comments Blood Pressure 172/111 09/30/2024 2:33 PM CDT Pt stated that her bp is always high along with being nervous for today Pulse 105 09/30/2024 2:29 PM CDT Temperature 36.8 C (98.2 F) 09/30/2024 2:29 PM CDT Respiratory Rate 16 09/30/2024 2:29 PM CDT Oxygen Saturation 94% 09/30/2024 2:2 9 PM CDT Inhaled Oxygen Concentration - - Weight 138.2 kg (304 lb 9.6 oz) 09/30/2024 2:29 PM CDT Height 177.8 cm (5' 10 ) 09/30/2024 2:2 9 PM CDT Body Mass Index 43.71 09/30/2024 2:29 PM CDT Plan of Treatment Upcoming Encounters Date Type Department Care Team (Late st Contact Info) Description 11/02/2024 10:00 AM CDT Office Visit [facility] Oncology and Hematology - [place] [address] [facility] [address] [place] [address] Sanford Og MD [address] [facility] [address] [place] [address] Health Maintenance Due Date Last Done Comments Pre-Diabetes and Diabetes Screening 1962 DTAP/TDAP/TD VACCINES (1 - Tdap) 1981 HPV/Cotest (21-29) 12/15/1983 CERVICAL CANCER SCREENING 1992 HPV/Cotest (30-65) 1992 PAP SMEAR 1992 BREAST CANCER SCREENING 2002 COLORECTAL SCREENING 12/15/2007 Colorectal Cancer Screening 12/15/2007 FIT-DNA Q 3 years 12/15/2007 FIT/FOBT Q 1 year 12/15/2007 Flex Sig/CT Colonography Q 5 years 12/15/2007 ZOSTER VACCINE (1 of 2) 2012 RSV VACCINE (60+ or ) (1 - Risk 60-74 years 1-dose series) 2022 INFLUENZA VACCINE (#1) 2023 Insurance [facility] [employer] Care Teams Charge Entry Clerk Relationship Specialty Start Date End Date Kim Sommers MD [address] [place] [phone] PCP - General Family Practice 09/30/24
[2024-10-07 08:42] LABS: Hematocrit 42.5 % (37.0-47.0); Hemoglobin 13.7 g/dL (12.0-15.0)
[2024-10-07 09:21] LABS: Anion Gap 8 mmol/L (4-12); Blood Urea Nitrogen 19 mg/dL (7-17); Calcium 10.4 mg/dL (8.4-10.2); Carbon Dioxide 29 mmol/L (22-30); Chloride 101 mmol/L (98-107); Estimated Glomerular Filt Rate 56; Glucose 156 mg/dL (65-110); Potassium 3.3 mmol/L (3.4-5.0); Sodium 138 mmol/L (137-145)
== END 2024-10-07 07:58 | disposition home or self-care (01) ==
LOC: ANHSURGERY 08:04
PROVIDERS: Anesthesiology; PCP Family Medicine; Visit Provider Surgery
DX: C50.919 Malignant neoplasm of unspecified site of unspecified female breast (principal); Z79.899 Other long term (current) drug therapy; I10 Essential (primary) hypertension; Z41.1 Encounter for cosmetic surgery
CPT/HCPCS: 36415; 80048; 85014; 85018; 86850; 86900; 86901; 93005

== ENCOUNTER 2024-10-14 06:09 | Observation (INO) | payer BC, SELFPAY ==
[2024-10-06 13:02] VITALS: BMI 43.1
--- NOTE | 2024-10-06 13:11 | PC.NURSE ---
Report to the Outpatient Waiting Room, entrance under the green pavilion located off [facility], at time _0700_ on date _[id number]_. Planned Procedure Time: _0900_.? Time changes happen often and if your time is changed the preop area will call you the afternoon before. - You and your visitor will be asked to self-screen and do not enter if you have any COVID symptoms. Please call surgeon if you need to reschedule. - A mask is optional within the hospital at this time. - No food or drink from midnight until time of surgery and no smoking, or chewing tobacco (or any form of nicotine). No chewing gum, candy or mints. Take only the following medications with a SIP of water on the morning of surgery: ___Metoprolol and if needed Albuterol____ DO NOT STOP ANY OF YOUR OTHER PRESCRIPTION MEDICATIONS PRIOR TO SURGERY EXCEPT THE FOLLOWING Hold all vitamins and supplements for 3 days per anesthesiologist. Medications to discontinue per physician Date to take last dose Please no make-up, nail tamazight, hairspray, perfume, deodorant, or body powder the day of surgery.? No jewelry (including any body piercings) or valuables the day of surgery, leave them at home.? Please take a shower or bath the night before, or the morning of, surgery with an antibacterial soap.? Wear comfortable, loose fitting clothing.? - Jewelry must be removed prior to entering the operating room.? Rings and piercings that are not removed may be cut off. - The hospital will not accept responsibility for valuables.? - Please leave all valuables, including medications, at home the day of surgery. If you are going home after surgery, a licensed lokie driver must drive you home.? - NO public transportation without another adult if you receive anesthesia. - We recommend that an adult stay with you for 24 hours following discharge. - We also recommend that you do not drive, make important decision, drink alcoholic beverages, or take any drugs that were not prescribed by your health care provider for at least 24 hours after your discharge time. Follow any additional instructions given to you from your surgeon. Telephone instructions given to ___Mandy__and asked if any additional questions and then verbalized understanding. Patient advised to call surgeon office or pre surgery nurse liaison [phone] if any additional questions.
[2024-10-12] VITALS (12 sets, daily range): BP systolic 163–196; BP diastolic 74–94; PULSE 53–82; RESP 12–20; TEMP 35.8–36.9; O2SAT 90–100
--- OUTSIDE RECORDS SUMMARY | 2024-10-12 01:05 | XMS_ITS | Clinical Summary ---
Author Organization [facility] Ernestina perry [facility] Address [address] [place] [address] [place] [address] Care Team Providers Care Highway Patrol Officer Name Role Phone Kim Sommers MD Primary Care Provider [phone] Allergies No known active allergies Medications metoprolol [...] Encounters Date Type Department Care Team Description 10/07/2024 External Device Data [facility] ABSTRACTION Provider, Abstract 10/06/2024 External Device Data [facility] ABSTRACTION Provider, Abstract 10/05/2024 External Device Data [place] ABSTRACTION Provider, Abstract 10/05/2024 External Device Data [facility] ABSTRACTION Provider, Abstract 10/05/2024 External Device Data [place] ABSTRACTION Provider, Abstract 09/30/2024 3:00 PM CDT Office Visit [facility] Oncology and Hematology - [place] [address] [facility] [address] [place] [address] Sanford Og MD Malignant neoplasm of [...] 2:29 PM CDT Height 177.8 cm (5' 10) 09/30/2024 2:2 9 PM CDT Body Mass Index 43.71 09/30/2024 2:29 PM CDT Plan of Treatment Upcoming Encounters Date Type Department Care Team (Late st Contact Info) Description 11/02/2024 10:00 AM CDT Office Visit [facility] Oncology and Hematology - [place] [address] [facility] [address] [place] [address] Sanford Og MD [address] [facility] [address] [place] [address] Health Maintenance Due Date Last [...] series) 2022 INFLUENZA VACCINE (#1) [address] [place] [id number] [facility] [employer] Care Teams Highway Patrol Officer Relationship Specialty Start Date End Date Kim Sommers MD [address] [place] [phone] PCP - General Family Practice 09/30/24
--- NOTE | 2024-10-12 07:37 | WPDHPUPDATE1 ---
History and Physical Update Update Date/Time: 10/12/24 07:37 Patient seen and examined in pre-operative holding area. No interval change in medical history or symptoms. Patient remembers previous discussion of benefits and alternatives to procedure. Continues to desire to proceed with bilateral breast reconstruction with tissue slice plug cutter operator helper and acellular dermal matrix at time of bilateral [id number]. I reviewed the risks including but not limited to bleeding ,infection, asymmetry, undesireable cosmetic appearance, partial/total skin loss, no change or worsening of symptoms, change in sensation, device failure, capsular contracture. I discussed the possible use of assistants and their level of participation in the case. Patient stated understanding and signed the consent form wishing to proceed
--- NOTE | 2024-10-12 07:38 | W.PM.PROC2 ---
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 The patient was taken back to the operating room and placed on the table in the supine position. Time-out was performed with Anesthesia, surgeons, and staff agreeing on patient's name, site, and surgery to be performed. SCDs were placed on the lower extremities and inflated. Antibiotics were given IV. After general anesthesia was administered care was given to Dr. Liu who proceeded with performing the Port-A-Cath placement which is dictated separately. After this was completed the breasts and right axilla were again prepped and redraped in sterile fashion. Dr. Liu then performed the right sentinel lymph node biopsy also dictated separately. Next I took my attention to the right breast where I proceeded with de epithelializing a 25 by 15 cm inferior pedicle and create improved fascularized surface to protect billing collections specialist as well as support the roration advancement flaps. I proceeded with further designing and making my other skin incisions to help address the patient's significant excess of skin and create an improved soft tissue envelope for right breast reconstruction by creating superomedial and superolateral rotation advancement flaps to better define anterior axillary line and create an appropraite anatomical spot for the billing collections specialist and reduce the width of the breast. I then proceeded with assisting Dr. Liu in performing the right non nipple sparing mastectomy aiding in retraction and hemostasis as necessary. Once this was completed I irrigated with normal saline and hemostasis with Bovie cautery. I proceeded with suturing in a large piece of contoured, perforated AlloDerm along the inframammary fold and anterior axillary line with 2-0 Vicryl suture. An Allergan 600 cc tissue billing collections specialist was then prepped and sutured into appropriate position utilizing the tabs and 2-0 Vicryl sutures. I proceeded with placing a 10 Finnish KYLE drain along the inframammary fold and an on Q pump catheter was placed along the superior aspect of the right breast pocket. The inferior pedicle that was previously de-epithelialized was sutured with 2-0 Vicryl along the anterior axillary line to help improve definition. After further irrigation with antibiotic irrigation I used a 2-0 Prolene suture to secure the T-junction of the superomedial and superior lateral rotation advancement flaps. The defect area closed by the skin flaps measured 12 x 20 cm 2-0 and 3-0 Vicryl were used for dermal closure. 4-0 Monocryl was used for subcuticular closure. Utilizing the tissue billing collections specialist port and initial fill of 300 cc of normal saline was performed. This appeared be reasonable initial expansion without undue tension on the skin flaps. The skin flaps appeared viable with good cap refill. Next gloves and instruments were changed and attention was taken to the left breast. I again proceeded with de epithelializing a 25 x 15 cm inferior pedicle with 10 blade scalpel.I proceeded with making other skin incisions as designed through skin and dermis to be symmetric with right breast and creae the superomedial and superolateral rotation advancement flaps to shape the left breast and address the distortion of the soft itssue envelope and create defiintion to the anterior axillary line and breast pocket. I then proceeded with assisting Dr. Liu in performing the left non nipple sparing mastectomy aiding in retraction and hemostasis as necessary. Once this was completed I irrigated with normal saline and hemostasis with Bovie cautery. I proceeded with suturing in a large piece of contoured, perforated AlloDerm along the inframammary fold and anterior axillary line with 2-0 Vicryl suture. An Allergan 600 cc tissue billing collections specialist was then prepped and sutured into appropriate position utilizing the tabs and 2-0 Vicryl sutures. It was almost completely covered with the alloderm. I proceeded with placing a 10 Finnish KYLE drain along the inframammary fold and an on Q pump catheter was placed along the superior aspect of the right breast pocket. The inferior pedicle that was previously de-epithelialized was sutured with 2-0 Vicryl along the anterior axillary line to help improve definition. After further irrigation with antibiotic irrigation I used a 2-0 Prolene suture to secure the T-junction of the superomedial and superior lateral rotation advancement flaps. The defect closed by these flaps measured 11 x 25 cm 2-0 and 3-0 Vicryl were used for dermal closure. Excess skinn/dog ear laterally was trimmed as necessary with 15 blade and bovie. 4-0 Monocryl was used for subcuticular closure. Utilizing the tissue billing collections specialist port and initial fill of 300 cc of normal saline was performed. This appeared be reasonable initial expansion without undue tension on the skin flaps and symmetric to the reconstruted right side. The skin flaps appeared viable with good cap refill. 10 cc of % lidocaine with epinephrine and 0.5% Marcaine plain were injected through the on Q catheters of each breast. Another 10 cc of 1% lidocaine with epinephrine and 0.5% Marcaine was injected around the anterior axillary line of each breast. The drains were hooked to bulb suction. The on Q catheters were hooked to the pump. A dressing of Mastisol, Steri-Strips, 4 x 4, ABDs and an breast binder was applied. The patient was awakened from anesthesia and transferred to the recovery room in stable condition. Complications: None Estimated blood loss: 20 cc for my portion of the procedure. Disposition: Patient tolerated the procedure well and will be observed overnight with expectations for discharge in the morning Raj Rodriguez PA-C was essential for positioning, retraction, closure and dressing placement [facility] [place] Surgery - Charge Forward: Surgery Billing ([id number](bill 4 units) [id number],59 [id number],59 [id number],90 [id number],80 same for raj adding modifer and removing modifier 80)
--- NOTE | 2024-10-12 07:40 | WPDHPUPDATE1 ---
History and Physical Update Update Date/Time: 10/12/24 07:40 - Right total mastectomy, prophylactic left total mastectomy, right sentinel lymph node biopsy with injection of Lymphoseek and methylene blue, MediPort placement, and reconstruction by Plastic surgery. History and Physical has been reviewed, including an updated exam of the patient. There are NO changes in the patient's condition. Risks, benefits, and alternatives have been discussed and questions answered. Patient agrees to proceed with procedure.
[2024-10-12 07:52] LABS: Basophils Percent Auto 0.6 % (0.2-1.2); Eosinophils Absolute Auto 0.2 K/mm3 (0-0.3); Eosinophils Percent Auto 3.4 % (0-4.4); Hematocrit 42.9 % (37.0-47.0); Hemoglobin 13.9 g/dL (12.0-15.0); Immature Granulocyte Absolute 0.01 K/mm3 (0.00-0.031); Immature Granulocyte Percent A 0.1 % (0-0.5); Lymphocytes Absolute Auto 2.22 K/mm3 (0.9-3.2); Lymphocytes Percent Auto 33.3 % (18.3-44.2); Mean Corpuscular HGB Conc 32.4 g/dl (32-36); Mean Corpuscular Hemoglobin 27.5 pg (26-34); Mean Corpuscular Volume 84.8 fl (80-100); Mean Platelet Volume 9.7 fl (7.4-10.4); Monocytes Absolute Auto 0.5 K/mm3 (0.1-0.6); Monocytes Percent Auto 7.2 % (2.6-8.5); Neutrophils Absolute Auto 3.7 K/mm3 (1.3-6.7); Neutrophils Percent Auto 55.4 % (45.5-73.1); Platelet Count Result 215 k/mm3 (150-375); Red Blood Count 5.06 M/mm3 (4.2-5.4); Red Cell Distribution Width 13.7 % (11.5-14.5); White Blood Count 6.7 K/mm3 (4.5-10.0)
[2024-10-12 07:57] LABS: Glucose Point of Care 121 mg/dl (65-105)
[2024-10-12] MEDS: LACTATED RINGERS 1,000 ML 30 ML IV CONT ×2 (08:00→13:53)
[2024-10-12] MEDS: ACETAMINOPHEN 500 MG TABLET 1000 MG PO (08:00)
[2024-10-12 08:29] LABS: INR 0.9; Partial Thromboplastin Time 26.8 Seconds (22.3-36.8)
[2024-10-12 08:32] LABS: Prothrombin Time 12.5 Seconds (11.1-14.7)
--- NOTE | 2024-10-12 08:32 | P.PNAN_ITS ---
Anes - Initial Pre Proc Eval Procedure: Operation Date: 10/12/24 09:00 Proposed Procedures p Right Total Mastectomy, Left Prophylactic Mastectomy, Right [place] Lymph Node Biopsy, Injection Lymphoseek and Methylene Blue for Node Mapping, MediPort Placement - Pema Liu MD s Placement of Bilateral Breast Tissue Pig Machine Operator Helper and Acellular Dermal Matrix - Diandra Gonzalez MD Date/Time: 10/12/24 08:32 Surgeon: Pema Liu MD Pre Op Diagnosis: primary metaplastic CA right breast Patient Data Age: 63 Gender: F Height: 1.78 m Weight: 136.4 kg Allergies Allergy/AdvReac Type Severity Reaction Status Date / Time No Known Allergies Allergy Unknown Verified 10/12/24 08:21 Home Medications ?Medication ?Instructions ?Recorded ?Confirmed ?Type albuterol sulfate 90 mcg/actuation 2 puff inhalation Q4-6H PRN 07/10/23 10/06/24 Rx aerosol inhaler shortness of breath or wheezing #8.5 grams inhalational spacing device #1 ea 07/10/23 10/06/24 Rx (Aerochamber Plus Z Stat spacer) metoprolol tartrate 100 mg tablet 100 mg PO Q12H #180 tabs 02/13/24 10/12/24 Rx indapamide 1.25 mg tablet 1.25 mg PO DAILY #90 tabs 05/16/24 10/06/24 Rx lisinopril 20 mg tablet 20 mg PO DAILY #90 tabs 05/16/24 10/06/24 Rx potassium chloride 20 mEq 20 meq PO HS #90 tabs 05/16/24 10/06/24 Rx tablet,extended release pantoprazole 40 mg tablet,delayed 40 mg PO HS #90 tabs 09/06/24 10/06/24 Rx release Laboratory Tests 10/12/24 10/12/24 07:30 07:49 WBC 6.7 K/mm3 (4.5-10.0) RBC 5.06 M/mm3 (4.2-5.4) Hgb 13.9 g/dL (12.0-15.0) Hct 42.9 % (37.0-47.0) MCV 84.8 fl (80-100) MCH 27.5 pg (26-34) MCHC 32.4 g/dl (32-36) RDW 13.7 % (11.5-14.5) Plt Count 215 k/mm3 (150-375) MPV 9.7 fl (7.4-10.4) Immature Gran % (Auto) 0.1 % (0-0.5) Neut % (Auto) 55.4 % (45.5-73.1) Lymph % (Auto) 33.3 % (18.3-44.2) [place] % (Auto) 7.2 % (2.6-8.5) Eos % (Auto) 3.4 % (0-4.4) Baso % (Auto) 0.6 % (0.2-1.2) Lymph # (Auto) 2.22 K/mm3 (0.9-3.2) [place] # (Auto) 0.5 K/mm3 (0.1-0.6) Eos # (Auto) 0.2 K/mm3 (0-0.3) Baso # (Auto) 0.0 K/mm3 (0.0-0.1) Abs Immat Gran (auto) 0.01 K/mm3 (0.00-0.031) Absolute Neuts (auto) 3.7 K/mm3 (1.3-6.7) Absolute Nucleated RBC 0.000 K/mm3 (0.0-0.012) Nucleated RBC % 0.0 % (0.0-0.2) PT 12.5 Seconds (11.1-14.7) INR 0.9 APTT 26.8 Seconds (22.3-36.8) POC Capillary Glucose 121 H mg/dl (65-105) Patient hx anesthesia problems: none Family hx anesthesia problems: none Results Review: All pre-operative results and documents have been reviewed as part of the pre- operative evaluation. PENDING SALE TO [facility] Past Medical History Medical History Vitamin D deficiency Diabetes Dysfunction of right eustachian tube Chest congestion GERD with esophagitis Pre-diabetes Hyperlipidemia Essential hypertension BPPV (benign paroxysmal positional vertigo) History of one miscarriage Abscess of anal and rectal regions Surgical History Surgical History H/O dilation and curettage Tubal ligation status History of removal of cyst H/O section Family History Family History Other Carcinoma of colon Diabetes mellitus Family history of cardiovascular disease Family history of coronary artery disease Family history of lung cancer Family history of malignant neoplasm Social History Social History Smoking status: Never smoker Second hand tobacco smoke exposure: Yes Alcohol intake: never Alcohol use details: Maybe twice a year. Substance use: current Substance use type: marijuana Other substance usage details: daily for chronic back pain Last use: 05/18/21 Lack of Transportation: No Lack of Food: Never True Current Housing: Decline to Answer Concerned About Future Housing: Decline to Answer Difficulty Paying Gas/Electric Bills: Decline to Answer Difficulty Paying for Meds: Decline to Answer Currently Unemployed: Decline to Answer Education: Decline to Answer Difficulty w/ Childcare or Family Care: Decline to Answer Living arrangements: with family Occupation/Education: retired Gender identity (if verbalized by the patient): Female Sexual Orientation (if Verbalized by the Patient): Straight or Heterosexual Spiritual care concerns: No Agree to blood products: Yes Anes - Eval Final PreProcedure Day of Procedure 10/12/24 08:32 Patient weight: morbidly obese Heart: regular rate and rhythm Lungs: clear to auscultation Airway: Mallampati scale class II Neurological: alert and oriented Last oral intake: >/= 8 hours ASA classification: III Emergent: no Anesthetic plan: proceed Anesthesia type and monitoring: general LMA and standard monitoring Results Review: All pre-operative results and documents have been reviewed as part of the pre- operative evaluation. Informed Consent: The patient's anesthetic plan and its attendant risks and benefits were discussed with the patient/family/POA. Questions were solicited and answers provided to the satisfaction of the patient/family/POA.
[2024-10-12] MEDS: ceFAZolin 3 GM/D5W 100 ML 100 ML IVPB (08:42)
[2024-10-12] MEDS: NACL 0.9% IRRIG POUR BOTTLE 1,000 ML, GENTAMICIN SULFATE INJ 160 MG, ceFAZolin 2 GM IRRIGATION (09:34)
[2024-10-12] MEDS: HEPARIN SODIUM 5,000 UNITS/ML VIAL 5000 UNITS IRRIGATION (09:47)
[2024-10-12] MEDS: HEPARIN SODIUM, PORCINE 10,000 UNITS/10 ML VIAL 1000 UNITS IV PUSH (09:49)
[2024-10-12] MEDS: LIDO 1%/EPINEPHRINE 1:100,000 20 ML VIAL 6 ML INFILTRATE (09:54)
[2024-10-12] MEDS: BUPivacaine HCL 0.5% PF 30 ML VIAL 6 ML INFILTRATE (09:54)
--- NOTE | 2024-10-12 10:45 | S_PTH ---
PATIENT: Mandy Fontana LOC: ANHOB2 U#:[id number] AGE/SX: 63/F ROOM: 287 RE10/14/[address]: Pema Liu MD : 1960 BED: 00 DIS: 10/14/2024 SPEC #: [id number] RECD: 10/12/24 10:56 STATUS: JOSHUA REMary Jane #: [id number] CIARAN: 10/12/24 10:[address]: Pema Liu DEPT: [facility] Surgical RECD BY: Corin Richardson ENTERED: 10/12/24 10:57 SP TYPE: Surgical OTHR DR: MD Kim VelascoMD Tissues: A - [place] LN Breast B - Breast Mastectomy C - Breast Mastectomy D - Breast Tissue Procedures: Hematoxylin and Eosin Stain Gross and Microscopic Level 4 Gross and Microscopic Level 5
--- NOTE | 2024-10-12 12:41 | W.PM.PROC2 ---
Procedure Note - Detailed Date of Procedure 10/12/24 Pre-op Diagnosis Primary metaplastic right breast carcinoma, triple negative Post-op Diagnosis Same Procedure Performed 1. Right total mastectomy 2. Prophylactic left total mastectomy 3. Right sentinel lymph node biopsy 4. Injection of Lymphoseek for sentinel lymph node mapping 5. Injection of methylene blue as a dual tracer 6. Left internal jugular vein MediPort placement with fluoroscopy and ultrasound guidance Surgeon Pema Liu MD Band Tacker Armida Willis PA-C Anesthesia General Description of Procedure Patient was identified in the preoperative holding area brought to the operating room suite. Prior to presenting to the preoperative holding area patient was taken to nuclear Medicine where I performed Lymphoseek injection in the periareolar area the subdermal plane for sentinel lymph node biopsy. She was then laid supine in the OR table. Sequential compression devices were applied. General Endotracheal anesthesia was induced without difficulty. Diluted methylene blue was injected to the right periareolar region in the subdermal plane for dual tracing for the sentinel lymph node biopsy. The left neck and upper chest were prepped and draped in a sterile fashion. Attention was turned to the left neck. Ultrasound was used to identify the internal jugular vein and a small incision was made overlying this area. Local anesthetic was infiltrated in the subcutaneous tissue and a needle was then slowly advanced under ultrasound guidance into the lumen of the internal jugular vein. Once dark venous blood was aspirated the syringe was removed and a guidewire was introduced into the internal jugular vein. Fluoroscopy images were obtained to verify the position of the wire going down into the superior vena cava. Once this was confirmed a small pocket was made by making a small incision with a 15 blade in the right upper chest. Dissection was carried down through the subcutaneous tissue and a small pocket was created for the future port. Hemostasis was assured. I then proceed to tunnel the catheter from this pocket to the neck after injecting local anesthetic in the subcutaneous tissue of the neck. Fluoroscopy images were obtained to measure the length of the catheter with the tip at the cavoatrial junction. The catheter was then cut distally at approximately 33 cm and connected to port. The port was then flushed with saline. An introducer with the peel-away sheath was then introduced into internal jugular vein under fluoroscopy guidance using the previously placed wire. The wire was removed as well as the introducer leaving the peel-away sheath. The catheter was then introduced into the IJ via the peel-away sheath which was slowly removed. Once the catheter was in good position, I was able to aspirate dark venous blood and easily flushed the port using the caldera needle. A x-ray picture was taking to ensure there is no kinks throughout the catheter and the catheter tip was in good position at the superior aspect of the cavoatrial junction. Once this was performed the port was then secured to pectoralis fascia using interrupted silk sutures and placed into the subcutaneous pocket. The port was again aspirated and flushed with heparinized saline. The deep dermal layer was closed with interrupted Vicryl and the skin was closed with 4-0 Monocryl in a subcuticular fashion. The small incision in the neck was closed with a single interrupted Monocryl suture. Dermabond was applied to all the incisions. The drapes were then taken down and bilateral breast and right axillary regions were prepped and draped in a sterile fashion. The Neoprobe was used to scan the left axilla to find the area of highest radio activity and a small incision was made overlying this area and incorporated into the mastectomy incision. Dissection was carried down through the subcutaneous tissue and the clavipectoral fascia was opened. I was able to identify 1 node that was hot and blue, and count [id number]. This node was gently grasped and excised using the LigaSure device. The node was then sent to pathology as a fresh specimen. The Neoprobe was again used to scan the axilla was used for any areas of radio activity there were at least 10% of the highest count and no other areas were identified. The axillary wound was irrigated with saline hemostasis was assured. The clavipectoral fascia was approximated with a running 3-0 Vicryl. The deep dermal layer was then closed with interrupted 3-0 Vicryl followed by 4-0 Monocryl in a subcuticular fashion and Dermabond for the skin. Attention was then turned to the left breast. Dr. Gonzalez had already previously marked incisions which included a morrissey pattern incisions encompassing the nipple areola complex and had already de-epitheliazed the inferior pedicle for his portion of the case. I made the upper mastectomy incision with a 10 blade, and dissection was then carried out in the thin areolar tissue between the subcutaneous and the breast tissue, superiorly to the? inferior border of the clavicle, medial to the lateral aspect of the sternal border, laterally to the latissimus dorsi, and inferior to the inframammary fold down to the muscle. The? breast tissue along with the pectoralis fascia was then carefully dissected off the pectoralis muscle posteriorly.? Once the entire breast was excised, it was oriented with a short stitch superior and a long stitch lateral and sent to pathology as a fresh specimen. The cavity was irrigated and hemostasis was assured. Attention was then turned to the right breast. A similar morrissey pattern incision was made encompassing the nipple areola complex and dissection was carried down through the subcutaneous tissue into the breast tissue. The inferior pedicle had already been de-epithelized on this side as well for the reconstruction part of the case. Dissection was then performed in the thin areolar tissue between the subcutaneous and the breast tissue, superiorly to the? inferior border of the clavicle, medial to the lateral aspect of the sternal border, laterally to the latissimus dorsi, and inferior to the inframammary fold down to the muscle. The? breast tissue along with the pectoralis fascia was then carefully dissected off the pectoralis muscle posteriorly.? Once the entire breast was excised, it was oriented with a short stitch superior and a long stitch lateral and sent to pathology as a fresh specimen. The cavity was irrigated and hemostasis was assured. the case was then turned over to Dr. Gonzalez for bilateral tissue director social placement, please refer to his procedure note for further details. All needles, instruments, and sponge counts were correct as reported by the operating room staff. Patient tolerated the procedure well with no immediate complications. Armida Willis PA-C was presented and assisted with patient positioning and retraction throughout the case. Estimated Blood Loss 40 Drains Yes Pathology Yes Complications No immediate complications Condition Stable Disposition PACU [facility] Billing Surgery - Charge Forward: Surgery Billing (CPT [id number] - R, [id number] - 59 L, [id number] - 59, [id number] - 59, [id number] - 59, [id number] - 59, [id number] - 59)
[2024-10-12] MEDS: BUPivacaine HCL 0.25% PF 30 ML VIAL 20 ML INFILTRATE (13:16)
[2024-10-12] MEDS: ONDANSETRON INJ 4 MG/2 ML VIAL IV PUSH ×2 (14:08→21:10)
[2024-10-12 14:22] LABS: Glucose Point of Care 175 mg/dl (65-105)
[2024-10-12] MEDS: diphenhydrAMINE HCl INJ 50 MG/ML VIAL 25 MG IV PUSH (14:29)
[2024-10-12] MEDS: SCOPOLAMINE 1 MG PATCH 1 PATCH TRANSDERM (14:34)
[2024-10-12 15:44] LABS: Hepatitis B Surface Antigen Negative (Negative)
--- NOTE | 2024-10-12 15:48 | ADMGEN ---
This patient, Mandy Fontana, was admitted to OB 2nd Floor Room 287-00. Patient/family oriented to hospital policies and general routines including ID bracelet, bed and alarms, visiting hours, pain management, procedures, bathroom and other care routines, personal items, smoking policy, room service/diet, and visiting hours. Information on how to activate the Rapid Response Team has been discussed. Patient/Family are encouraged to report perceived risks to care and to ask questions if they do not understand what they are told or what they should do.
[2024-10-12 16:01] LABS: HIV 1/2 Ab P24 Ag Result Negative (Negative); Hepatitis C Virus Antibody Negative (Negative)
[2024-10-12] MEDS: LACTATED RINGERS 1,000 ML 100 ML IV CONT (16:19)
--- NOTE | 2024-10-12 19:03 | P.CONIM_ITS ---
Assessment and Plan Assessment and plan (1) Primary metaplastic carcinoma of breast: Code(s): C50.919 - Malignant neoplasm of unspecified site of unspecified female breast Status: Acute Assessment and Plan: - patient underwent a right total mastectomy, prophylactic left total mastectomy, right sentinel lymph node biopsy, sentinel lymph node mapping, and MediPort placement on 10/12/2024 - primary management via breast surgery (2) Hypokalemia: Code(s): E87.6 - Hypokalemia Status: Acute Assessment and Plan: - K 3.3 on 10/07, previously 3.1 and 2023 - recheck this evening on 10/12 - home medication continued: KCL 20 mEq p.o. daily (3) Diabetes: Qualifiers: Diabetes mellitus complication status: without complication Diabetes mellitus jail insulin use: without middle or intermediate school principal use Diabetes mellitus type: t ype 2 Qualified Code(s): E11.9 - Type 2 diabetes mellitus without complications Code(s): E11.9 - Type 2 diabetes mellitus without complications Status: Chronic Assessment and Plan: - hypoglycemia protocol - POC blood glucose ACHS - not currently on home medications. Glucose 156 on outpatient lab work on 10/07 - correct regimen ordered - high dose TIDWM, based off BMI - A1C 6.7% in 2023 -> 6.7% on 10/12 Patient educated to follow up with her PCP to further manage her diabetes. May be able to manage the lifestyle changes, tight glycemic control while inpatient. Patient verbalized understanding and had no questions at this time. (4) Essential hypertension: Code(s): I10 - Essential (primary) hypertension Status: Acute Assessment and Plan: - chronic, currently 163/92 - continue home medications:Lisinopril 20 mg daily, metoprolol 100 mg b.i.d. - monitor Plan Diet: regular GI Prophylaxis: not currently indicated DVT Prophylaxis: SCDs IV fluids: LR at 100 mL/hour x1 L Lines/Tubes: peripheral IV Code Status: full code HPI Date of Consult Consult date: 10/12/24 Requesting Physician: Pema Liu MD Primary Care Provider: Kim Sommers MD Consult Narrative Reason for consult: DM, HTN,s/p B TM and R SLNBx Narrative: 63 y/o F with PMH of right breast metaplastic carcinoma, diabetes, hyperlipidemia, hypertension, BPPV, and vitamin-D deficiency presents here for a bilateral total mastectomy with a right sentinel lymph node biopsy and tissue telecom coordinator placement. The patient presents here today for a bilateral total mastectomy with a right sentinel lymph node biopsy and tissue telecom coordinator Secondary to right breast metaplastic carcinoma. Breast cancer is ER negative, ME negative, HER2 negative with low KI-6 7 index. She had a MediPort placed at the time of the bilateral mastectomy for likely adjuvant chemotherapy. Postoperatively she reports nausea that worsens when she stands, feeling loopy, and some dizziness with standing. She reports a history of nausea with anesthesia with a previous . She reports no recent changes to her medical history or new medications. Preop VS: 98.5? F, HR 65, R 16, 196/94, and 99% on RA. Preop workup: No leukocytosis, no anemia, normal coags, potassium 3.3, creatinine 1.0 and GFR 56. Review of Systems 2 Review of Systems: All systems reviewed & are unremarkable except as noted in HPI and below PMFSH Past Medical History Medical History (Updated 10/12/24 @ 19:14 by Mable Hernandez APRN) Vitamin D deficiency Diabetes Dysfunction of right eustachian tube Chest congestion GERD with esophagitis Pre-diabetes Hyperlipidemia Essential hypertension BPPV (benign paroxysmal positional vertigo) History of one miscarriage Abscess of anal and rectal regions Surgical History Surgical History History of hysterectomy H/O dilation and curettage Tubal ligation status History of removal of cyst H/O section Family History Family History Other Carcinoma of colon Diabetes mellitus Family history of cardiovascular disease Family history of coronary artery disease Family history of lung cancer Family history of malignant neoplasm Social History Social History Smoking status: Never smoker Second hand tobacco smoke exposure: Yes Alcohol intake: never Alcohol use details: Maybe twice a year. Substance use: current Substance use type: marijuana Other substance usage details: daily for chronic back pain Last use: 05/18/21 Lack of Transportation: No Lack of Food: Never True Current Housing: Decline to Answer Concerned About Future Housing: Decline to Answer Difficulty Paying Gas/Electric Bills: Decline to Answer Difficulty Paying for Meds: Decline to Answer Currently Unemployed: Decline to Answer Education: Decline to Answer Difficulty w/ Childcare or Family Care: Decline to Answer Living arrangements: with family Occupation/Education: retired Gender identity (if verbalized by the patient): Female Sexual Orientation (if Verbalized by the Patient): Straight or Heterosexual Spiritual care concerns: No Agree to blood products: Yes Meds Home Medications and Allergies Home Medications ?Medication ?Instructions ?Recorded ?Confirmed ?Type albuterol sulfate 90 mcg/actuation 2 puff inhalation Q4-6H PRN 07/10/23 10/06/24 Rx aerosol inhaler shortness of breath or wheezing #8.5 grams inhalational spacing device #1 ea 07/10/23 10/06/24 Rx (Aerochamber Plus Z Stat spacer) metoprolol tartrate 100 mg tablet 100 mg PO Q12H #180 tabs 02/13/24 10/12/24 Rx indapamide 1.25 mg tablet 1.25 mg PO DAILY #90 tabs 05/16/24 10/06/24 Rx lisinopril 20 mg tablet 20 mg PO DAILY #90 tabs 05/16/24 10/06/24 Rx potassium chloride 20 mEq 20 meq PO HS #90 tabs 05/16/24 10/06/24 Rx tablet,extended release pantoprazole 40 mg tablet,delayed 40 mg PO HS #90 tabs 09/06/24 10/06/24 Rx release Allergies Allergy/AdvReac Type Severity Reaction Status Date / Time No Known Allergies Allergy Unknown Verified 10/12/24 08:21 Vital Signs Vital Signs - 24 hr 10/12/24 08:00 10/12/24 08:33 10/12/24 13:53 Temperature 98.5 F 96.4 F L Pulse Rate 65 66 Respiratory Rate 16 17 Blood Pressure 196/94 H 184/75 H 165/79 H Pulse Oximetry 99 100 Oxygen Delivery Room Air Simple Face Mask Oxygen Flow Rate 8 10/12/24 14:00 10/12/24 14:15 10/12/24 14:30 Temperature Pulse Rate 56 L 60 55 L Respiratory Rate 15 19 12 Blood Pressure 163/74 H 179/77 H 176/78 H Pulse Oximetry 96 90 98 Oxygen Delivery Simple Face Mask Room Air Nasal Cannula Oxygen Flow Rate 8 4 10/12/24 14:45 10/12/24 15:00 10/12/24 15:15 Temperature Pulse Rate 53 L 55 L 55 L Respiratory Rate 16 15 13 Blood Pressure 173/83 H 176/94 H 169/83 H Pulse Oximetry 96 96 100 Oxygen Delivery Nasal Cannula Nasal Cannula Nasal Cannula Oxygen Flow Rate 4 2 2 10/12/24 15:30 10/12/24 16:00 10/12/24 16:00 Temperature 97.4 F L Pulse Rate 58 L 57 L Respiratory Rate 13 12 Blood Pressure 187/78 H 163/92 H Pulse Oximetry 100 100 100 Oxygen Delivery Nasal Cannula Nasal Cannula Oxygen Flow Rate 2 2 Exam 2 Const: General: no acute distress and uncomfortable Other: , female, nontoxic appearance. Mild discomfort noted. HENMT: Face/Nose/Sinus: Normal nares present Mouth: Yes moist mucous membranes Eyes: General: appearance normal, both eyes and all related structures S clera: sclerae normal Pupils: Equal, round and reactive pupils present E OM: EOMs intact bilaterally Resp: Effort & Inspection: normal respiratory effort Auscultation: clear to auscultation bilaterally Cardio: Rate: regular rate Rhythm: regular rhythm Other: S1-S2 present without murmur, rub, ectopy GI: Other: Abdomen soft, nondistended, nontender. Normoactive bowel sounds in all quadrants. Skin: General skin exam: normal color and no rashes or lesions noted Other: Bilateral mastectomy with drains in place. Dressing/binding clean dry and intact. Serosanguineous output to bilateral drains, right greater than left. Neuro: Speech: normal speech Motor exam (neuro): 5/5 motor strength present throughout Sensory Exam: normal sensation Other: A&O x4 Extrem: General: normal to inspection Psych: Mental Status: mental status grossly normal Affect: normal affect Other: good insight and judgment, very pleasant Results Labs 10/12/24 07:30 Labs: Short CBC 10/12/24 Range/Units 07:30 WBC 6.7 (4.5-10.0) K/mm3 Hgb 13.9 (12.0-15.0) g/dL Hct 42.9 (37.0-47.0) % Plt Count 215 (150-375) k/mm3 Quality VTE Prophylaxis VTE prophylaxis: mechanical ordered Hospitalist [facility] Advance Care Plan I have confirmed that the patient's Advanced Care Plan is present, code status is documented, or surrogate decision maker is listed in patient medical record.: Yes Medication Reconciliation I have utilized all available resources to obtain, update and review the patients current medications (includes all prescriptions, OTC, herbals, cannabis, and nutritional supplements).: Yes
[2024-10-12] MEDS: METOPROLOL TARTRATE 50 MG TAB 100 MG PO (21:10)
[2024-10-12] MEDS: POTASSIUM CHLORIDE 20 MEQ ER TABLET PO (21:10)
[2024-10-12] MEDS: PANTOPRAZOLE 40 MG TABLET PO (21:11)
[2024-10-12] MEDS: CEPHALEXIN 500 MG CAPSULE PO (21:11)
[2024-10-12 21:19] LABS: Hemoglobin A1C 6.7 % (<5.7)
[2024-10-12] MEDS: ACETAMINOPHEN 325 MG TABLET 650 MG PO (22:51)
[2024-10-13] VITALS (8 sets, daily range): BP systolic 121–138; BP diastolic 59–69; PULSE 62–74; RESP 16–18; TEMP 36.5–37.5; O2SAT 93–97
[2024-10-13] MEDS: traMADol HCL (*CRX) 50 MG TABLET PO (01:49)
[2024-10-13] MEDS: ACETAMINOPHEN 325 MG TABLET 650 MG PO ×3 (07:08→20:55)
[2024-10-13 08:27] LABS: Anion Gap 5 mmol/L (4-12); Blood Urea Nitrogen 24 mg/dL (7-17); Carbon Dioxide 32 mmol/L (22-30); Chloride 97 mmol/L (98-107); Estimated CRCL calculation 67 ml/min; Estimated Glomerular Filt Rate 46; Glucose 134 mg/dL (65-110); Potassium 3.9 mmol/L (3.4-5.0); Sodium 134 mmol/L (137-145)
[2024-10-13 09:17] LABS: Glucose Point of Care 151 mg/dl (65-105)
[2024-10-13] MEDS: lisinopriL 20 MG TABLET PO (09:23)
[2024-10-13] MEDS: DOCUSATE SODIUM 100 MG CAPSULE PO ×2 (09:23→17:38)
[2024-10-13] MEDS: INDAPAMIDE 1.25 MG TABLET PO (09:23)
[2024-10-13] MEDS: CEPHALEXIN 500 MG CAPSULE PO ×2 (09:23→20:55)
[2024-10-13] MEDS: METOPROLOL TARTRATE 50 MG TAB 100 MG PO ×2 (09:23→20:55)
--- NOTE | 2024-10-13 10:06 | P.PNIM_ITS ---
Progress Note: A&P Assessment and Plan (1) Primary metaplastic carcinoma of breast: Code(s): C50.919 - Malignant neoplasm of unspecified site of unspecified female breast Status: Acute Assessment and Plan: Status post right total mastectomy, prophylactic left total mastectomy, right sentinel lymph node biopsy, sentinel lymph node mapping, and MediPort placement on 10/12/2024 - primary management via breast surgery (2) Hypokalemia: Code(s): E87.6 - Hypokalemia Status: Acute Assessment and Plan: - K 3.3 on 10/07, previously 3.1 and 2023 Recheck and monitor - home medication continued: KCL 20 mEq p.o. daily (3) Diabetes: Qualifiers: Diabetes mellitus type: type 2 Diabetes mellitus exterminator helper termite insulin use: without senior care use Diabetes mellitus complication status: without complication Qualified Code(s): E11.9 - Type 2 diabetes mellitus without complications Code(s): E11.9 - Type 2 diabetes mellitus without complications Status: Chronic Assessment and Plan: - hypoglycemia protocol - POC blood glucose ACHS - not currently on home medications. Glucose 156 on outpatient lab work on 10/07 - correct regimen ordered - high dose TIDWM, based off BMI - A1C 6.7% in 2023 -> 6.7% on 10/12 development educator consultation Follow-up with PCP for ongoing evaluation and management. (4) Essential hypertension: Code(s): I10 - Essential (primary) hypertension Status: Acute Assessment and Plan: Improved - continue home medications:Lisinopril 20 mg daily, metoprolol 100 mg b.i.d. - monitor Plan Diet: regular GI Prophylaxis: not currently indicated DVT Prophylaxis: SCDs Lines/Tubes: peripheral IV Code Status: full code Subjective Date/time seen: 10/13/24 10:06 Interval history: Feeling better. Discussed with nursing staff. Discuss diabetes management. She had borderline diabetes prior to this. Does not take any medication. Review of Systems Review of Systems: All systems reviewed & are unremarkable except as noted in HPI and below Exam Narrative: GENERAL: The patient is well developed, not in acute distress HEENT: Nonicteric sclerae, PERRLA, EOMI. Oropharynx clear. Moist mucous membranes. Conjunctivae appear well perfused. CHEST: Chest wall is nontender. Bilateral mastectomy with drains in place. Dressing clean dry and intact. Serosanguineous output to bilateral drains. HEART: Regular rate and rhythm without murmur, rubs, or gallops LUNGS: Clear to auscultation bilaterally. no respiratory distress ABDOMEN: Soft, positive bowel sounds, non-tender, no organomegaly. SKIN: No rash, no excessive bruising, petechiae, or purpura. NEUROLOGIC: Cranial nerves II-XII intact, alert and oriented x 3, no gross motor deficits EXTREMITIES: no edema, cyanosis or clubbing Objective Data Vital Signs Vital Signs: Vital Signs - 24 hr 10/12/24 13:53 10/12/24 14:00 10/12/24 14:15 Temperature 96.4 F L Pulse Rate 66 56 L 60 Respiratory Rate 17 15 19 Blood Pressure 165/79 H 163/74 H 179/77 H Pulse Oximetry 100 96 90 Oxygen Delivery Simple Face Mask Simple Face Mask Room Air Oxygen Flow Rate 8 8 10/12/24 14:30 10/12/24 14:45 10/12/24 15:00 Temperature Pulse Rate 55 L 53 L 55 L Respiratory Rate 12 16 15 Blood Pressure 176/78 H 173/83 H 176/94 H Pulse Oximetry 98 96 96 Oxygen Delivery Nasal Cannula Nasal Cannula Nasal Cannula Oxygen Flow Rate 4 4 2 10/12/24 15:15 10/12/24 15:30 10/12/24 16:00 Temperature 97.4 F L Pulse Rate 55 L 58 L 57 L Respiratory Rate 13 13 12 Blood Pressure 169/83 H 187/78 H 163/92 H Pulse Oximetry 100 100 100 Oxygen Delivery Nasal Cannula Nasal Cannula Oxygen Flow Rate 2 2 10/12/24 16:00 10/12/24 20:40 10/12/24 20:40 Temperature 98.5 F Pulse Rate 82 82 Respiratory Rate 20 20 Blood Pressure 164/89 H Pulse Oximetry 100 95 95 Oxygen Delivery Nasal Cannula Room Air Oxygen Flow Rate 2 10/13/24 01:50 10/13/24 05:35 10/13/24 07:20 Temperature 98.5 F 98.6 F Pulse Rate 74 67 Respiratory Rate 16 16 Blood Pressure 138/66 128/59 L Pulse Oximetry 94 95 Oxygen Delivery Room Air Oxygen Flow Rate 10/13/24 09:23 Temperature Pulse Rate 62 Respiratory Rate Blood Pressure Pulse Oximetry Oxygen Delivery Oxygen Flow Rate Intake/Output Intake/Output: Intake & Output 05/10/11/24 10/12/24 10/13/24 23:59 23:59 23:59 23:59 Intake Total 400 Output Total 550 480 Balance -150 -480 Meds/Results Medications: Active Medications Generic Name Dose Route Start Last Admin Trade Name Freq PRN Reason Stop Dose Admin Acetaminophen 650 mg 10/12/24 18:00 10/13/24 07:57 Acetaminophen 325 Mg Tablet PO Not Given Q6HR STEPHANIE Hydrocodone Bitart/Acetaminophen 1 tab 10/12/24 15:51 Hydrocodone/Acetaminophen (*Crx) 5-325 Mg Tablet PO Q4H PRN Pain Rated 4-6 Hydrocodone Bitart/Acetaminophen 1 tab 10/12/24 15:51 Hydrocodone/Acetaminophen (*Crx) 10-325 Mg Tablet PO Q4H PRN Pain Rated 7-10 Albuterol 2 puff 10/12/24 15:51 Albuterol Sulfate (*Sp) Aerosol 1 Puff INHALATION Q4-6H PRN shortness of breath or wheezing Cephalexin HCl 500 mg 10/12/24 21:00 10/13/24 09:23 Cephalexin 500 Mg Capsule PO 500 mg Q12HR STEPHANIE Administration Dextrose 12.5 gm 10/12/24 19:12 Dextrose 50% 25 Gm/50 Ml Syringe IV PUSH PRN PRN Hypoglycemia Protocol Diphenhydramine HCl 25 mg 10/12/24 15:51 Diphenhydramine Hcl Inj 50 Mg/Ml Vial IV PUSH Q6H PRN Itching Docusate Sodium 100 mg 10/12/24 17:00 10/13/24 09:23 Docusate Sodium 100 Mg Capsule PO 100 mg BID STEPHANIE Administration Glucagon 1 mg 10/12/24 19:12 Glucagon For Inj 1 Mg Vial IM PRN PRN Hypoglycemia Protocol Glucose 15 gm 10/12/24 19:12 Glucose Oral Gel 15 Gm Of Glucse In 37.5 Gm Tube PO PRN PRN Hypoglycemia Protocol Hydromorphone HCl 1 mg 10/12/24 15:51 Hydromorphone Hcl Inj (*Crx) 1 Mg/Ml Syr IV PUSH Q2H PRN Breakthrough Pain Rated 7-10 or NPO Hydromorphone HCl 0.5 mg 10/12/24 15:51 Hydromorphone Hcl Inj (*Crx) 1 Mg/Ml Syr IV PUSH Q2H PRN Breakthrough Pain Rated 4-6 or NPO Dextrose 1,000 mls @ 100 mls/hr 10/12/24 19:12 Dextrose 5% 1,000 Ml IVPB PRN PRN Hypoglycemia Protocol Indapamide 1.25 mg 10/13/24 09:00 10/13/24 09:23 Indapamide 1.25 Mg Tablet PO 1.25 mg DAILY STEPHANIE Administration Insulin Aspart 4 - 8 units 10/13/24 08:00 10/13/24 09:22 Insulin Aspart (*Bkc) 100 Units/Ml SUB-Q Not Given TIDWM [facility] Protocol Lisinopril 20 mg 10/13/24 09:00 10/13/24 09:23 Lisinopril 20 Mg Tablet PO 20 mg DAILY STEPHANIE Administration Metoprolol Tartrate 100 mg 10/12/24 21:00 10/13/24 09:23 Metoprolol Tartrate 50 Mg Tab PO 100 mg Q12HR STEPHANIE Administration Naloxone HCl 0.1 mg 10/12/24 15:51 Naloxone Hcl 0.4 Mg/Ml Vial IV PUSH Q2M PRN Opiate Reversal Ondansetron HCl 4 mg 10/12/24 15:51 10/12/24 21:10 Ondansetron Inj 4 Mg/2 Ml Vial IV PUSH 4 mg Q4H PRN Administration Nausea And Vomiting Pantoprazole Sodium 40 mg 10/12/24 21:00 10/12/24 21:11 Pantoprazole 40 Mg Tablet PO 40 mg HS STEPHANIE Administration Potassium Chloride 20 meq 10/12/24 21:00 10/12/24 21:10 Potassium Chloride 20 Meq Er Tablet PO 20 meq HS STEPHANIE Administration Tramadol HCl 50 mg 10/12/24 15:51 10/13/24 01:49 Tramadol Hcl (*Crx) 50 Mg Tablet PO 50 mg Q4H PRN Administration Pain Rated 1-3 Radiology Results: ITS Impressions [place] Node 10/12/24 13:22 IMPRESSION: 1. Status post right breast injection of Technetium 99M sulfur colloid for purpose of sentinel lymph node biopsy. Chest X-Ray 10/12/24 14:22 IMPRESSION: Left internal jugular central venous power port catheter in good position and ready for immediate use. Labs Labs: Laboratory Results - last 24 hr 10/12/24 10/12/24 10/12/24 07:30 14:20 14:38 Sodium Potassium Chloride Carbon Dioxide Anion Gap BUN Creatinine Estim Creat Clear Calc Estimated GFR Glucose POC Capillary Glucose 175 H Hemoglobin A1c 6.7 H Calcium Hep Bs Antigen Negative Hepatitis C Ab Screen Negative HIV 1&2 Ab/P24 Ag 4thGn Negative 10/13/24 10/13/24 08:07 09:09 Sodium 134 L Potassium 3.9 Chloride 97 L Carbon Dioxide 32 H Anion Gap 5 BUN 24 H Creatinine 1.20 H Estim Creat Clear Calc 67 Estimated GFR 46 L Glucose 134 H POC Capillary Glucose 151 H Hemoglobin A1c Calcium 10.0 Hep Bs Antigen Hepatitis C Ab Screen HIV 1&2 Ab/P24 Ag 4thGn
--- NOTE | 2024-10-13 10:15 | PC.NURSE ---
parent educator Maria Del Rosario Monge called for a consult on this patient. Voice mail left after no answer.
[2024-10-13 13:30] LABS: Glucose Point of Care 165 mg/dl (65-105)
--- NOTE | 2024-10-13 14:29 | WPDANESPN ---
Anes - Prog Note Post-Op Date/Time: 10/13/24 14:29 Cardiovascular status: normal Respiratory status: normal Airway patency: baseline Mental status: baseline Vital Signs: Last Vital Signs Temp 37.2 C 10/13/24 07:30 Pulse 62 10/13/24 09:23 Resp 16 10/13/24 07:30 BP 121/63 10/13/24 07:30 Pulse Ox 97 10/13/24 13:33 O2 Del Method Room Air 10/13/24 13:33 O2 Flow Rate 2 10/12/24 16:00 Pain Score (VAS): 4 I/O: Intake & Output 10/12/24 10/13/24 10/13/24 23:59 07:59 15:59 Intake Total 240 Output Total 550 480 355 Balance -550 -480 -115 Laboratory Tests 10/12/24 07:30 10/13/24 08:07 10/12/24 10/12/24 10/13/24 07:30 14:38 08:07 Sodium 134 L Potassium 3.9 Chloride 97 L Carbon Dioxide 32 H Anion Gap 5 BUN 24 H Creatinine 1.20 H Estim Creat Clear Calc 67 Estimated GFR 46 L Glucose 134 H POC Capillary Glucose Hemoglobin A1c 6.7 H Calcium 10.0 Hep Bs Antigen Negative Hepatitis C Ab Screen Negative HIV 1&2 Ab/P24 Ag 4thGn Negative 10/13/24 10/13/24 09:09 13:24 Sodium Potassium Chloride Carbon Dioxide Anion Gap BUN Creatinine Estim Creat Clear Calc Estimated GFR Glucose POC Capillary Glucose 151 H 165 H Hemoglobin A1c Calcium Hep Bs Antigen Hepatitis C Ab Screen HIV 1&2 Ab/P24 Ag 4thGn Patient Feedback: Patient satisfied with anesthetic care.
[2024-10-13 17:53] LABS: Glucose Point of Care 114 mg/dl (65-105)
--- NOTE | 2024-10-13 20:29 | P.PNGS_ITS ---
Progress Note: A&P Assessment and Plan (1) Primary metaplastic carcinoma of breast: Code(s): C50.919 - Malignant neoplasm of unspecified site of unspecified female breast Status: Acute (2) Triple negative breast cancer: Code(s): C50.919 - Malignant neoplasm of unspecified site of unspecified female breast; Z17.421 - Hormone receptor negative with human epidermal growth factor receptor 2 negative status Status: Acute Assessment and Plan: - PT to eval patient's balance and ambulation - Will re-check BMP tomorrow morning, to ensure hypoK is improve - Will check BNP, given new cardiomegaly on chest xray and shortness of breath with walking - Hopefully home soon Time Spent With Patient Time with patient: 15 - 25 minutes Subjective Subjective Date/Time Seen: 10/13/24 20:29 Post Op day: 1 Patient reports: other (feels dizzy and unsteady when up and walking. Pain well controlled. ) Review of Systems Review of Systems: All systems reviewed & are unremarkable except as noted in HPI and below Respiratory: Respiratory: Reports dyspnea Exam Const: General: comfortable and no acute distress HENMT: Mouth: Yes moist mucous membranes Eyes: General: appearance normal, both eyes and all related structures Resp: Effort & Inspection: normal respiratory effort Cardio: Rate: regular rate GI: GI Palp: Yes Soft to palpation Skin: Other: bilateral mastectomy incision dressings are intact, very small strike through on the right lateral aspect. No ecchymosis or bleeding noted otherwise. Flaps are well perfused throughout. Drains with dark serous sanguineous fluid Objective Data Vital Signs Vital Signs: Vital Signs - 24 hr 10/12/24 20:40 10/12/24 20:40 10/13/24 01:50 Temperature 36.9 C 36.9 C Pulse Rate 82 82 74 Respiratory Rate 20 20 16 Blood Pressure 164/89 H 138/66 Pulse Oximetry 95 95 94 Oxygen Delivery Room Air 10/13/24 05:35 10/13/24 07:20 10/13/24 07:30 Temperature 37.0 C 37.2 C Pulse Rate 67 62 Respiratory Rate 16 16 Blood Pressure 128/59 L 121/63 Pulse Oximetry 95 93 Oxygen Delivery Room Air 10/13/24 09:23 10/13/24 13:33 10/13/24 15:05 Temperature 36.5 C Pulse Rate 62 62 Respiratory Rate 18 Blood Pressure 127/69 Pulse Oximetry 97 97 Oxygen Delivery Room Air Intake/Output Intake/Output: Intake & Output 10/10/24 10/11/24 10/12/24 10/13/24 23:59 23:59 23:59 23:59 Intake Total 400 980 Output Total 550 1295 Balance -150 -315 Meds/Results Medications: Active Medications Generic Name Dose Route Start Last Admin Trade Name Freq PRN Reason Stop Dose Admin Acetaminophen 650 mg 10/12/24 18:00 10/13/24 13:25 Acetaminophen 325 Mg Tablet PO 650 mg Q6HR STEPHANIE Administration Hydrocodone Bitart/Acetaminophen 1 tab 10/12/24 15:51 Hydrocodone/Acetaminophen (*Crx) 5-325 Mg Tablet PO Q4H PRN Pain Rated 4-6 Hydrocodone Bitart/Acetaminophen 1 tab 10/12/24 15:51 Hydrocodone/Acetaminophen (*Crx) 10-325 Mg Tablet PO Q4H PRN Pain Rated 7-10 Albuterol 2 puff 10/12/24 15:51 Albuterol Sulfate (*Sp) Aerosol 1 Puff INHALATION Q4-6H PRN shortness of breath or wheezing Cephalexin HCl 500 mg 10/12/24 21:00 10/13/24 09:23 Cephalexin 500 Mg Capsule PO 500 mg Q12HR STEPHANIE Administration Dextrose 12.5 gm 10/12/24 19:12 Dextrose 50% 25 Gm/50 Ml Syringe IV PUSH PRN PRN Hypoglycemia Protocol Diphenhydramine HCl 25 mg 10/12/24 15:51 Diphenhydramine Hcl Inj 50 Mg/Ml Vial IV PUSH Q6H PRN Itching Docusate Sodium 100 mg 10/12/24 17:00 10/13/24 17:38 Docusate Sodium 100 Mg Capsule PO 100 mg BID STEPHANIE Administration Glucagon 1 mg 10/12/24 19:12 Glucagon For Inj 1 Mg Vial IM PRN PRN Hypoglycemia Protocol Glucose 15 gm 10/12/24 19:12 Glucose Oral Gel 15 Gm Of Glucse In 37.5 Gm Tube PO PRN PRN Hypoglycemia Protocol Hydromorphone HCl 1 mg 10/12/24 15:51 Hydromorphone Hcl Inj (*Crx) 1 Mg/Ml Syr IV PUSH Q2H PRN Breakthrough Pain Rated 7-10 or NPO Hydromorphone HCl 0.5 mg 10/12/24 15:51 Hydromorphone Hcl Inj (*Crx) 1 Mg/Ml Syr IV PUSH Q2H PRN Breakthrough Pain Rated 4-6 or NPO Dextrose 1,000 mls @ 100 mls/hr 10/12/24 19:12 Dextrose 5% 1,000 Ml IVPB PRN PRN Hypoglycemia Protocol Indapamide 1.25 mg 10/13/24 09:00 10/13/24 09:23 Indapamide 1.25 Mg Tablet PO 1.25 mg DAILY STEPHANIE Administration Insulin Aspart 4 - 8 units 10/13/24 08:00 10/13/24 18:09 Insulin Aspart (*Bkc) 100 Units/Ml SUB-Q Not Given TID[facility] Protocol Lisinopril 20 mg 10/13/24 09:00 10/13/24 09:23 Lisinopril 20 Mg Tablet PO 20 mg DAILY STEPHANIE Administration Metoprolol Tartrate 100 mg 10/12/24 21:00 10/13/24 09:23 Metoprolol Tartrate 50 Mg Tab PO 100 mg Q12HR STEPHANIE Administration Naloxone HCl 0.1 mg 10/12/24 15:51 Naloxone Hcl 0.4 Mg/Ml Vial IV PUSH Q2M PRN Opiate Reversal Ondansetron HCl 4 mg 10/12/24 15:51 10/12/24 21:10 Ondansetron Inj 4 Mg/2 Ml Vial IV PUSH 4 mg Q4H PRN Administration Nausea And Vomiting Pantoprazole Sodium 40 mg 10/12/24 21:00 10/12/24 21:11 Pantoprazole 40 Mg Tablet PO 40 mg HS STEPHANIE Administration Potassium Chloride 20 meq 10/12/24 21:00 10/12/24 21:10 Potassium Chloride 20 Meq Er Tablet PO 20 meq HS STEPHANIE Administration Tramadol HCl 50 mg 10/12/24 15:51 10/13/24 01:49 Tramadol Hcl (*Crx) 50 Mg Tablet PO 50 mg Q4H PRN Administration Pain Rated 1-3 Radiology Results: ITS Impressions [place] Node 10/12/24 13:22 IMPRESSION: 1. Status post right breast injection of Technetium 99M sulfur colloid for pur pose of sentinel lymph node biopsy. Chest X-Ray 10/12/24 14:22 IMPRESSION: Left internal jugular central venous power port catheter in good position and ready for immediate use. Labs Labs: Laboratory Results - last 24 hr 10/12/24 10/13/24 10/13/24 07:30 08:07 09:09 Sodium 134 L Potassium 3.9 Chloride 97 L Carbon Dioxide 32 H Anion Gap 5 BUN 24 H Creatinine 1.20 H Estim Creat Clear Calc 67 Estimated GFR 46 L Glucose 134 H POC Capillary Glucose 151 H Hemoglobin A1c 6.7 H Calcium 10.0 10/13/24 10/13/24 13:24 17:49 Sodium Potassium Chloride Carbon Dioxide Anion Gap BUN Creatinine Estim Creat Clear Calc Estimated GFR Glucose POC Capillary Glucose 165 H 114 H Hemoglobin A1c Calcium Imaging Attestation: I personally reviewed and interpreted this imaging study as follows: My impression: Chest xray from yesterday showed cardiomegaly, which is new from last year's chest xray
[2024-10-13] MEDS: PANTOPRAZOLE 40 MG TABLET PO (20:55)
[2024-10-13] MEDS: POTASSIUM CHLORIDE 20 MEQ ER TABLET PO (21:06)
[2024-10-13 21:14] LABS: Glucose Point of Care 147 mg/dl (65-105)
--- NOTE | ~2024-10-14 | XR_ITS ---
INTRAOPERATIVE FLUOROSCOPY: CLINICAL HISTORY: 63 years old Female; MEDIPORT PLACEMENT LEFT SIDE PLACEMENT PROCEDURE COMMENTS: Limited intraoperative fluoroscopy of the chest was performed. CUMULATIVE DOSE: 10.1 mGy FLUOROSCOPY TIME: 30 seconds FINDINGS/IMPRESSION: Please refer to operative note for further details. Reviewed, dictated and finalized at location A.
--- NOTE | ~2024-10-14 | XR_ITS ---
CHEST RADIOGRAPH CLINICAL HISTORY: MEDIPORT PLACEMENT . COMPARISON: 12/16/2023 TECHNIQUE: Single portable view of the chest. FINDINGS Interval placement of a left internal jugular central venous power port catheter with its tip project ing over the superior vena cava. Cardiomediastinal silhouette is enlarged. Low lung volumes are detected bilaterally, likely secondary to patient's recent perioperative state. Rounded areas of increased density projecting over the bilateral chest wall, consistent with tissue e xpanders. The visualized lung woods are otherwise clear. IMPRESSION: Left internal jugular central venous power port catheter in good position and ready for immediate use . Reviewed, dictated and finalized at location A. IMPRESSION: Left internal jugular central venous power port catheter in good position and r mena for immediate use.
--- NOTE | ~2024-10-14 | NM_ITS ---
EXAMINATION: SENTINEL NODE INJECTION ONLY DATE: 10/12/2024 13:22 CDT INDICATION: Right breast cancer TECHNIQUE: 1 mCi Tc-99m sulfur colloid was injected along the upper outer aspect of the right nipple. The procedure was performed by Dr. Liu. IMPRESSION: 1. Status post right breast injection of Technetium 99M sulfur colloid for purpose of sentinel lymph node biopsy. Reviewed, dictated and finalized at location A. IMPRESSION: 1. Status post right breast injection of Technetium 99M sulfur colloid for pur pose of sentinel lymph node biopsy.
[2024-10-14] MEDS: ACETAMINOPHEN 325 MG TABLET 650 MG PO ×2 (02:37→08:56)
[2024-10-14 04:50] VITALS: BP 124/59; PULSE 60; RESP 16; TEMP 36.9; O2SAT 95
[2024-10-14 06:53] LABS: Anion Gap 3 mmol/L (4-12); Blood Urea Nitrogen 22 mg/dL (7-17); Calcium 9.9 mg/dL (8.4-10.2); Carbon Dioxide 30 mmol/L (22-30); Chloride 98 mmol/L (98-107); Estimated CRCL calculation 85 ml/min; Estimated Glomerular Filt Rate > 60; Glucose 133 mg/dL (65-110); Potassium 3.7 mmol/L (3.4-5.0); Sodium 131 mmol/L (137-145)
[2024-10-14 07:02] LABS: NT Pro B Type Natriuretic Pept 39 pg/mL (19.9-100)
--- NOTE | 2024-10-14 07:45 | P.DS_ITS ---
DS: Admitting Diagnosis Discharge Date 10/14/2024 Admitting Diagnosis - Right breast cancer, triple negative DS: Discharge Diagnosis Discharge Diagnosis (1) Triple negative breast cancer: Code(s): C50.919 - Malignant neoplasm of unspecified site of unspecified female breast; Z17.421 - Hormone receptor negative with human epidermal growth factor receptor 2 negative status Status: Acute Assessment and Plan: - See below (2) Primary metaplastic carcinoma of breast: Code(s): C50.919 - Malignant neoplasm of unspecified site of unspecified female breast Status: Acute Assessment and Plan: - Follow up with Plastic Surgery next week for drain check and possible removal, and removal of OnQ pump - Follow up with Breast Surgery in 2 weeks (3) Essential hypertension: Code(s): I10 - Essential (primary) hypertension Status: Acute Assessment and Plan: - Continue home medications as previously prescribed (4) Diabetes: Qualifiers: Diabetes mellitus type: type 2 Diabetes mellitus predatory animal exterminator insulin use: without predatory animal exterminator use Diabetes mellitus complication status: without complication Qualified Code(s): E11.9 - Type 2 diabetes mellitus without complications Code(s): E11.9 - Type 2 diabetes mellitus without complications Status: Chronic Assessment and Plan: - Follow up with PCP for DM management within 2 weeks of hospital discharge (5) Morbid obesity with body mass index (BMI) of 45.0 to 49.9 in adult: Code(s): E66.01 - Morbid (severe) obesity due to excess calories; Z68.42 - Body mass index [BMI] 45.0-49.9, adult Status: Acute DS: Summary Hospital Course Hospital Course: Patient was admitted post-op for observation. She felt weak and nauseated on POD1 from anesthesia effects, and was kept for another day for observation. She is now tolerating regular diet, ambulating without assistance, and voiding without any problems. Her dizziness and nausea improved, and she was deemed ready for discharge on POD2. Status at Discharge Functional status at discharge: independent ambulation Overall status at discharge: patient is back to baseline Time Spent with Patient Time attestation: Total time spent providing and/or coordinating discharge services: Time spent: Less than 30 minutes Exam Const: General: comfortable and no acute distress Eyes: General: appearance normal, both eyes and all related structures Resp: Effort & Inspection: normal respiratory effort Cardio: Rate: regular rate GI: GI Palp: Yes Soft to palpation Skin: General skin exam: normal color Extrem: General: normal to inspection Psych: Mental Status: mental status grossly normal DS: Data Data Completed and Pending Pending studies at discharge: Pending at discharge 10/12/24 10:45 Surgical [PTH] Routine Surgical [PTH] Routine Surgical [PTH] Routine Surgical [PTH] Routine Labs on day of discharge: Labs from last 24 hours 10/14/24 10/13/24 10/13/24 06:38 21:11 17:49 Sodium 131 L Potassium 3.7 Chloride 98 Carbon Dioxide 30 Anion Gap 3 L BUN 22 H Creatinine 0.94 Estim Creat Clear Calc 85 Estimated GFR > 60 Glucose 133 H POC Capillary Glucose 147 H 114 H Calcium 9.9 NT-Pro-B Natriuret Pep 39 10/13/24 10/13/24 10/13/24 13:24 09:09 08:07 Sodium 134 L Potassium 3.9 Chloride 97 L Carbon Dioxide 32 H Anion Gap 5 BUN 24 H Creatinine 1.20 H Estim Creat Clear Calc 67 Estimated GFR 46 L Glucose 134 H POC Capillary Glucose 165 H 151 H Calcium 10.0 NT-Pro-B Natriuret Pep Discharge Plan Discharge Patient Disposition: Home Discharge Instructions: Post-Operative Instructions Breast Reconstruction Dressing Instructions: Keep bra and surgical dressings clean, dry, and in place at all times. Shower Instructions: Keep surgical dressings, incisions, and drains, dry at all times. You may shower or sponge bathe from waist down. May sponge bathe underarms and upper extremities. Activity: Avoid strenuous activity and heavy lifting/pushing/pulling until seen in office for follow up appointment. Avoid overhead arm movements. Walking is encouraged to help with bowel movement as well as help prevent blood clots in the lower extremities. Deep breathing exercises are encouraged to help prevent lung infections. Drain Care: Keep drains on suction at all times. Strip drain tubing at least every 12 hours. Empty drains every 12 hours and record output separately for each side. Please bring output record to your first follow up visit in office. Medication: May take Advil or Tylenol for pain. May take prescription pain medication as prescribed if not controlled by Advil/Tylenol. Prescription pain medication may cause constipation. Take antibiotics as prescribed. Plastic Surgery Follow up: Please follow up in office in 3-5 days. Breast Surgery Follow Up: Please follow up in office in 2 weeks. Please call the office for any questions or concerns, including uncontrolled pain, fever/chills, bleeding, redness, or unexpected changes in sensation. If after normal business hours, please request the cafeteria operator page the surgeon or PA. For emergent symptoms, please call 911 or seek assistance at the nearest Emergency Room. Patient Language: Ug[place]an Stand Alone Forms: General Discharge Instructions Follow-up/Referrals: Diandra Gonzalez MD [Physician] - (next week) Pema Liu MD [Physician] - (in 2 weeks) Discharge Medications: New hydrocodone-acetaminophen 5-325 mg tablet 1 tablet PO Q4H PRN (Reason: pain) Qty: 16 0RF cephalexin 500 mg capsule 500 mg PO Q12H Qty: 14 0RF Continued albuterol sulfate 90 mcg/actuation HFA aerosol inhaler 2 puff inhalation Q4-6H PRN (Reason: shortness of breath or wheezing) Qty: 8.5 0RF (DME) Aerochamber Plus Z Stat Spacer See Rx Instructions .Route Qty: 1 0RF Rx Instructions: As directed metoprolol tartrate 100 mg tablet 100 mg PO Q12H Qty: 180 1RF indapamide 1.25 mg tablet 1.25 mg PO DAILY Qty: 90 1RF potassium chloride 20 mEq tablet extended release 20 meq PO HS Qty: 90 1RF lisinopril 20 mg tablet 20 mg PO DAILY Qty: 90 1RF pantoprazole 40 mg tablet,delayed release (DR/EC) 40 mg PO HS Qty: 90 1RF
[2024-10-14] MEDS: CEPHALEXIN 500 MG CAPSULE PO (08:56)
[2024-10-14] MEDS: DOCUSATE SODIUM 100 MG CAPSULE PO (08:56)
[2024-10-14 09:00] VITALS: BP 147/65; PULSE 66; PULSE 69; RESP 18; TEMP 37.3; O2SAT 93
[2024-10-14] MEDS: INDAPAMIDE 1.25 MG TABLET PO (09:00)
[2024-10-14] MEDS: METOPROLOL TARTRATE 50 MG TAB 100 MG PO (09:00)
[2024-10-14] MEDS: lisinopriL 20 MG TABLET PO (09:00)
[2024-10-14 09:06] LABS: Glucose Point of Care 145 mg/dl (65-105)
[2024-10-14 10:30] VITALS: BMI 44.2
--- NOTE | 2024-10-24 14:47 | PCCDE ---
10/24/24 Reached patient for DM educator follow up phone call. Pt following up with surgeon due to Breast CA, drain and reconstructive surgery; this is her primary focus. No glucometer for SMBG or DM Rx. - Enc'd to reach out to HCP for follow up in the near future. - Reviewed importance monitoring glucose to identify if changes and treat appropriately. - Reviewed glucose management and healing as well as factors affect glucose. ANNY.
== END 2024-10-14 13:20 | disposition home or self-care (01) ==
LOC: ANHSURGERY 10:08 → ANHOB2 10:08
PROVIDERS: Anesthesiology; Plastic Surgery; Student in an Organized Health Care Education/Training Program; Admitting Provider Surgery; PCP Family Medicine; Visit Provider Surgery
PROC: (CPT 36561; principal; 2024-10-12 09:00)
PROC: (CPT 19357; 2024-10-12 09:00)
DX: C50.411 Malignant neoplasm of upper-outer quadrant of right female breast (principal); Z17.421 Hormone receptor negative with human epidermal growth factor receptor 2 negative status; Z17.1 Estrogen receptor negative status [ER-]; L82.1 Other seborrheic keratosis; R06.02 Shortness of breath; E87.6 Hypokalemia; E55.9 Vitamin D deficiency, unspecified; I11.9 Hypertensive heart disease without heart failure; E11.9 Type 2 diabetes mellitus without complications; E78.5 Hyperlipidemia, unspecified; K21.9 Gastro-esophageal reflux disease without esophagitis; H81.10 Benign paroxysmal vertigo, unspecified ear; E66.01 Morbid (severe) obesity due to excess calories; Z68.42 Body mass index [BMI] 45.0-49.9, adult; Z11.4 Encounter for screening for human immunodeficiency virus [HIV]; Z79.51 Long term (current) use of inhaled steroids; Z79.899 Other long term (current) drug therapy; Z98.51 Tubal ligation status; Z90.710 Acquired absence of both cervix and uterus
CPT/HCPCS: 36561; 19303; 38525; 38900; 19357; 15777 ×2; 14301; 14302 ×16; 36415; 38792; 77001; 80048; 82948; 83036; 83880; 85025; 85610; 85730; 86703; 86803; 87340; 88305; 88307; 99199; A9270; A9520; C1788; G0378; G0432; J0690; J1100; J1200; J1580; J1644; J2004; J2250; J2270; J2371; J2405; J2704; J7030; J7120; Q4116; Q9968

== ENCOUNTER 2024-11-02 18:18 | Inpatient (IN) | payer BC, SELFPAY ==
[2024-11-02] VITALS (10 sets, daily range): BP systolic 146–231; BP diastolic 75–103; PULSE 96–117; RESP 10–26; TEMP 37.3–38.9; O2SAT 92–95
--- NOTE | ~2024-11-02 | XR_ITS ---
CHEST RADIOGRAPH CLINICAL HISTORY: fever. RECENT DOUBLE MASTECTOMY HX BREAST CX . COMPARISON: 12/16/2023 TECHNIQUE: Single portable view of the chest. FINDINGS Left internal jugular central venous port catheter identified with its tip projecting over the cavoat rial junction. The remainder of the cardiomediastinal silhouette is otherwise unremarkable. Circular foreign bodies projected over the bilateral lung woods, consistent with patient's history o f mastectomy with reconstruction. Calcified granuloma within the left upper lobe, unchanged. Increased interstitial markings within the bilateral lung bases, for which atelectasis is suspected. The remainder of the lungs are clear. IMPRESSION: Bibasilar atelectasis, without focal infiltrate or effusion. Reviewed, dictated and finalized at location A.
--- NOTE | 2024-11-02 20:00 | ED_ITS ---
HPI - Fever General Chief Complaint: Fever Stated Complaint: n/v, chills/fever, mastectomy 3 weeks ago Time Seen by Provider: 11/02/24 20:00 Source: patient History of Present Illness HPI Narrative: 63 YEARS OLD WHITE FEMALE CAME TO THE ED FROM HOME BY PRIVATE CAR COMPLAINING OF FEVER, CHILLS, HEADACHE, NAUSEA TODAY, LAST IBUPROFEN INTAKE 10 HOURS AGO. STATUS POST DOUBLE MASTECTOMY 3 WEEKS AGO, WAS SEEN BY TODAY. HISTORY OF HYPERTENSION. Related Data Allergies Allergy/AdvReac Type Severity Reaction Status Date / Time No Known Allergies Allergy Unknown Verified 10/26/24 10:14 Review of Systems 2 Review of Systems: All systems reviewed & are unremarkable except as noted in HPI and below PMFSH Past Medical History Medical History Vitamin D deficiency Diabetes Dysfunction of right eustachian tube Chest congestion GERD with esophagitis Pre-diabetes Hyperlipidemia Essential hypertension BPPV (benign paroxysmal positional vertigo) History of one miscarriage Abscess of anal and rectal regions Surgical History Surgical History History of hysterectomy H/O dilation and curettage Tubal ligation status History of removal of cyst H/O section Family History Family History Other Carcinoma of colon Diabetes mellitus Family history of cardiovascular disease Family history of coronary artery disease Family history of lung cancer Family history of malignant neoplasm Social History Social History Smoking status: Never smoker Second hand tobacco smoke exposure: Yes Alcohol intake: never Alcohol use details: Maybe twice a year. Substance use: current Substance use type: marijuana Other substance usage details: daily for chronic back pain Last use: 05/18/21 Lack of Transportation: No Lack of Food: Never True Current Housing: Decline to Answer Concerned About Future Housing: Decline to Answer Difficulty Paying Gas/Electric Bills: Decline to Answer Difficulty Paying for Meds: Decline to Answer Currently Unemployed: Decline to Answer Education: Decline to Answer Difficulty w/ Childcare or Family Care: Decline to Answer Living arrangements: with family Occupation/Education: retired Gender identity (if verbalized by the patient): Female Sexual Orientation (if Verbalized by the Patient): Straight or Heterosexual Spiritual care concerns: No Agree to blood products: Yes Exam 2 Narrative: GENERAL APPEARANCE: WELL-DEVELOPED, WELL-NOURISHED SKIN: NORMAL COLOR HEAD: NORMOCEPHALIC, NONTRAUMATIC EYES: CLEAR CONJUNCTIVA ENT: OROPHARYNX NORMAL, EARS NORMAL, NOSE NORMAL NECK: SUPPLE, NONTENDER CHEST AND RESPIRATORY: CHEST EXAM SHOWED STATUS POST BILATERAL MASTECTOMY, ERYTHEMA, SLIGHT DISCHARGE IN BOTH SURGICAL WOUND MORE ON THE RIGHT SIDE, WARM. HEART: REGULAR RATE/RHYTHM ABDOMEN: SOFT, NONTENDER, NO ORGANOMEGALY, QUIET BOWEL SOUNDS VASCULAR: NORMAL PERIPHERAL PULSES, NORMAL CAPILLARY REFILL. MUSCULOSKELETAL: NORMAL RANGE OF MOTION, NONTENDER BACK NEUROLOGIC: ALERT AND ORIENTED ?3, MANUFACTURING PROCESS TECHNICIAN IS NORMAL TESTED, NO GROSS MOTOR DEFICIT Course Consultations Consultation #1: DR LIEN GRIFFITHS AFTER MIDNIGHT Date: 11/02/24 Vital Signs Vital signs: Vital Signs Temperature 37.6 C 11/02/24 18:54 Pulse Rate 117 H 11/02/24 18:54 Respiratory Rate 18 11/02/24 18:54 Blood Pressure 231/97 H 11/02/24 18:54 Pulse Oximetry 94 11/02/24 18:54 Oxygen Delivery Room Air 11/02/24 18:54 Temperature 37.3 C 11/02/24 21:42 Pulse Rate 100 11/02/24 21:42 Respiratory Rate 20 11/02/24 21:42 Blood Pressure 161/75 H 11/02/24 21:42 Pulse Oximetry 93 11/02/24 21:42 Oxygen Delivery Room Air 11/02/24 19:30 MDM - Fever MDM Narrative Medical decision making narrative: PATIENT CAME TO THE ED WITH FEVER AND CHILLS, STATUS POST DOUBLE MASTECTOMY 3 WEEKS AGO VITAL SIGNS SHOWING BLOOD PRESSURE 199/103, HEART RATE 108, RESPIRATION 24, TEMPERATURE 38.9?. PHYSICAL EXAMINATION SHOWING SURGICAL WOUND INFECTION STATUS POST MASTECTOMY MORE ON THE RIGHT THAN THE LEFT. DIFFERENTIAL DIAGNOSIS SURGICAL WOUND INFECTION, UNCONTROLLED HYPERTENSION, BLOOD WORKUP TODAY INCLUDES CBC, CMP CAME BLOOD CULTURE, LACTIC ACID, CRP SHOWED WBC 16.3, SODIUM 134, POTASSIUM 3.0 GLUCOSE 149 ALKALINE PHOSPHATASE 165, C- REACTIVE PROTEIN 4.0 PATIENT TESTED NEGATIVE FOR COVID FLU AND RSV CHEST X-RAY SHOWED BILATERAL BASAL ATELECTASIS PATIENT STARTED IMMEDIATELY ON VANCOMYCIN AND ZOSYN DIAGNOSIS SURGICAL WOUND INFECTION ADMIT TO HOSPITALIST Differential Diagnosis Differential diagnosis: Likely cellulitis and viral infection Medical Records Attestation: I reviewed the patient's medical records. Lab Data Attestation: I reviewed the patient's lab results. 11/02/24 20:39 11/02/24 20:39 Labs: Lab Results 11/02/24 11/02/24 11/02/24 Range/Units 20:38 20:39 22:20 WBC 16.3 H (4.5-10.0) K/mm3 RBC 4.12 L (4.2-5.4) M/mm3 Hgb 11.2 L (12.0-15.0) g/dL Hct 34.5 L (37.0-47.0) % MCV 83.7 (80-100) fl MCH 27.2 (26-34) pg MCHC 32.5 (32-36) g/dl RDW 13.8 (11.5-14.5) % Plt Count 253 (150-375) k/mm3 MPV 9.7 (7.4-10.4) fl Immature Gran % (Auto) Not Reportable Neut % (Auto) Not Reportable Lymph % (Auto) Not Reportable [place] % (Auto) Not Reportable Eos % (Auto) Not Reportable Baso % (Auto) Not Reportable Lymph # (Auto) Not Reportable [place] # (Auto) Not Reportable Eos # (Auto) Not Reportable Baso # (Auto) Not Reportable Abs Immat Gran (auto) Not Reportable Absolute Neuts (auto) Not Reportable Absolute Nucleated RBC Not Reportable Total Counted 100 Neutrophils % (Manual) 88 H (46-73) % Band Neutrophils % 6 (0-6) % Lymphocytes % (Manual) 1.0 L (18-44) % Monocytes % (Manual) 4 (3-9) % Eosinophils % (Manual) 1 (0-4) % Nucleated RBC % Not Reportable Abs Neuts (Manual) 15.32 H (1.3-6.7) K/mm3 Abs Lymphs (Manual) 0.16 L (1.1-4.5) K/mm3 Abs Monocytes (Manual) 0.65 (0.1-0.90) K/mm3 Absolute Eos (Manual) 0.16 (0.02-0.50) K/mm3 Platelet Estimate Adequate (Adequate) Schistocytes None seen PT 15.1 H (11.1-14.7) Seconds INR 1.2 APTT > 200.0 H* 33.3 (22.3-36.8) Seconds Sodium 134 L (137-145) mmol/L Potassium 3.0 L (3.4-5.0) mmol/L Chloride 97 L (98-107) mmol/L Carbon Dioxide 27 (22-30) mmol/L Anion Gap 10 (4-12) mmol/L BUN 15 D (7-17) mg/dL Creatinine 0.86 (0.7-1.0) mg/dL Estim Creat Clear Calc 90 ml/min Estimated GFR > 60 (59 - ) Glucose 149 H (65-110) mg/dL Lactic Acid 1.0 (0.7-2.0) mmol/L Calcium 10.1 (8.4-10.2) mg/dL Total Bilirubin 1.0 (0.2-1.3) mg/dL AST 27 (14-36) U/L ALT 20 (6-35) U/L Alkaline Phosphatase 165 H (38-126) U/L C-Reactive Protein 4.0 H (<1.0) mg/dL Total Protein 7.2 (6.3-8.2) g/dL Albumin 4.0 (3.5-5.1) g/dL Influenza A (RT-PCR) Negative (Negative) Influenza B (RT-PCR) Negative (Negative) RSV (RT-PCR) Negative (Negative) SARS-CoV-2 RNA (RT-PCR) Negative (Negative) Imaging Data Radiologist's impression: CHEST X-RAY SHOWED BILATERAL BASAL ATELECTASIS Critical Care Time Critical Care Time Critical Care Time: Yes Total Critical Care Time: 30 Discharge Plan Discharge Clinical Impression: Infected surgical wound Patient Disposition: Still a Patient Condition: Stable Patient Language: Urdu Prescriptions: No Action albuterol sulfate 90 mcg/actuation HFA aerosol inhaler 2 puff inhalation Q4-6H PRN (Reason: shortness of breath or wheezing) Qty: 8.5 0RF silver sulfadiazine [Silvadene] 1 % cream 1 applic topical DAILY Qty: 50 0RF Rx Instructions: apply a 1.5 mm thickness (DME) blood-glucose meter, wireless Kit See Rx Instructions .ROUTE .MEDSUPPLY Qty: 1 0RF Rx Instructions: monitor blood sugar once per day in the morning before food (DME) blood sugar diagnostic Strip See Rx Instructions .ROUTE .MEDSUPPLY Qty: 90 3RF Rx Instructions: Monitor blood sugar once per day in the morning before food (DME) lancets [CareTouch Twist Lancet] 33 gauge misc See Rx Instructions .ROUTE .MEDSUPPLY Qty: 100 0RF Rx Instructions: Monitor blood sugar once per day in the morning before food lisinopril 30 mg tablet 30 mg PO DAILY Qty: 30 1RF metoprolol tartrate 100 mg tablet 100 mg PO Q12H Qty: 180 1RF indapamide 1.25 mg tablet 1.25 mg PO DAILY Qty: 90 1RF potassium chloride 20 mEq tablet extended release 20 meq PO HS Qty: 90 1RF pantoprazole 40 mg tablet,delayed release (DR/EC) 40 mg PO HS Qty: 90 1RF Follow-up/Referrals: UNKNOWN,DOCTOR [Primary Care Provider] -
--- OUTSIDE RECORDS SUMMARY | 2024-11-02 20:17 | XMS_ITS | Clinical Summary ---
Author Organization [facility] [place] Ernestina perry [facility] Address [address] [address] Care Team Providers Care Community Assistant Name Role Phone Kim Sommers MD Primary Care Provider [phone] Allergies No known active allergies Medications metoprolol tartrate (LOPRESSOR) 100 mg tablet Take 100 mg by mouth 2 times daily. Active potassium CHLORIDE (KLOR-CON) 10 mEq Extended Release tablet Take 10 mEq by mouth one time only. Active lisinopriL (PRINIVIL) 20 mg tablet Take 30 mg by mouth daily. Active pantoprazole (PROTONIX) 40 mg Tablet, Delayed Release (E.C.) Take 40 mg by mouth daily. Active indapamide (LOZOL) 1.25 mg tablet Take 1.25 mg by mouth daily in the morning. Active Active Problems No known active problems Encounters Date Type Department Care Team Description 11/02/2024 10:00 AM CDT Office Visit [facility] [place] Oncology [facility] [address] [place] [address] Sanford Og MD Malignant neoplasm of upper-outer quadrant of right breast in female, estrogen receptor negative (CMS/HCC) (Primary Dx) 10/07/2024 External Device Data STL ABSTRACTION Provider, Abstract 10/06/2024 External Device Data STL ABSTRACTION Provider, Abstract 10/05/2024 External Device Data STL ABSTRACTION Provider, Abstract 10/05/2024 External Device Data STL ABSTRACTION Provider, Abstract 10/05/2024 External Device Data STL ABSTRACTION Provider, Abstract 09/30/2024 3:00 PM CDT Office Visit [facility] [place] Oncology [facility] [address] [place] [address] Sanford Og MD Malignant neoplasm of [...] Sign Reading Time Taken Comments Blood Pressure 174/96 11/02/2024 10:09 AM CDT Taken manually Pulse 68 11/02/2024 9:58 AM CDT Temperature 36.4 C (97.6 F) 11/02/2024 9:58 AM CDT Respiratory Rate 15 11/02/2024 9:58 AM CDT Oxygen Saturation 94% 11/02/2024 9:5 8 AM CDT Inhaled Oxygen Concentration - - Weight 135.8 kg (299 lb 6.4 oz) 11/02/2024 9:58 AM CDT Height 177.8 cm (5' 10) 09/30/2024 2:2 9 PM CDT Body Mass Index 42.96 09/30/2024 2:29 PM CDT Plan of Treatment Health Maintenance Due Date Last Done Comments [...] 1-dose series) 2022 INFLUENZA VACCINE (#1) 2023 Preventative Visit- Commercial 05/18/2024 Insurance [facility] [employer] Care Teams Community Assistant Relationship Specialty Start Date End Date Kim Sommers MD [address] [place] [phone] PCP - General Family Practice 09/30/24
--- OUTSIDE RECORDS SUMMARY | 2024-11-02 20:17 | XMS_ITS | Encounter Summary ---
Author Organization [facility] Address [address] [place] [address] Care Team Providers Care Silica Mixer Operator Name Role Phone Kim Sommers MD Primary Care Provider [phone] Reason for Referral * Eval and Treat (Routine) - Open Specialty Diagnoses / Procedures Referred By Bradenac t Referred To Contact Oncology Diagnoses Malignant neoplasm of upper-outer quadrant of right breast in female, estrogen receptor negative (CMS/HCC) Procedures DE OFFICE/OUTPATIENT ESTABLISHED MOD MDM 30 MIN DE OFFICE/OUTPATIENT NEW MODERATE MDM 45 MINUTES Sanford Og MD [address] [place] [phone] Phone: tel: fax: Referral ID Status Reason Start Date Expiration Date Visits Re quested Visits Authorized [id number] Open 11/02/2024 11/03/2025 1 1 * Echocardiography (Routine) - Pending Review Specialty Diagnoses / Procedures Referred By Malcolm t Referred To Contact Diagnoses Malignant neoplasm of upper-outer quadrant of right breast in female, estrogen receptor negative (CMS/HCC) Procedures ECHO COMPLETE - CONTRAST AND STRAIN IF INDICATED ECHO COMPLETE - CONTRAST AND STRAIN IF INDICATED DE ECHO TTHRC R-T 2D W/WOM-MODE COMPL SPEC&COLR D DE MYOCRD STRAIN IMG SPECKLE TRCK ASSMT MYOCRD [facility] DE TTE W OR WO FOL WCON,DOPPLER Sanford Og MD [address] [place] [phone] Phone: tel: fax: [place] [phone] Referral ID Status Reason Start Date Expiration Date Visits Requested Visits Authorized [id number] Pending Review [facility] CTS 11/02/2024 12/03/2025 1 1 Reason for Visit * Reason Comments Follow Up Cancer Encounter Details Date Type Department Care Team (Late st Contact Info) Description 11/02/2024 10:00 AM CDT Office Visit [facility] Oncology and Hematology - [place] [address] [facility] [address] [place] [address] Sanford Og MD [address] [place] [address] Malignant neoplasm of upper-outer quadrant of right breast in female, estrogen receptor negative (CMS/HCC) (Primary Dx) Social History Tobacco Use Types Packs/Day Years [...] on file documented as of this encounter Last Filed Vital Signs Vital Sign Reading [...] 6.4 oz) 11/02/2024 9:58 AM CDT Height - - Body Mass Index 42.96 09/30/2024 2:29 PM CDT documented in this encounter Progress Notes * Sanford Og MD - 11/02/2024 10:00 AM CDT HEMATOLOGY / ONCOLOGY PROGRESS NOTE Patient Identification: Name: Mandy Fontana Age: 63 y.o. 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 Pathology showed ER negative, DE negative and HER2/bernice negative with Ki-67 of 1%. CURRENT TREATMENT Expectant TREATMENT HISTORY Bilateral mastectomy and right breast sentinel lymph node biopsy done on October 12, 2024. SUBJECTIVE Patient came to the office for follow-up visit after bilateral mastectomy was performed. She is recovering well from the surgery. Denies any other new complaints. Review of system Constitutional: Patient did not mention fevers, sweats, fatigue, malaise, weight loss HEENT: Patient did not mention sinus congestion, hearing or vision problems Respiratory: Patient did not mention cough, dyspnea, wheeze Cardiovascular: Patient did not mention chest pain, exertional chest pressure/discomfort, nausea, syncope, shortness of breath GI: Patient did not mention constipation, diarrhea, dsyphagia, reflux symptoms, vomiting, melena : Patient did not mention dysuria, frequency, incontinence, urgency Integumentary system: no lymphadenopathy, sweats, flushing Musculoskeletal: Patient not mention: myalgia, arthralgia Neurological: Patient did not mention blurry or disturbed vision, numbness/weakness, dizziness Skin: No lumps, bumps or rashes. Objective: Vital signs in last 24 hours: As per nursing note Exam: General appearance: alert, cooperative, no distress, appears stated age Head: normocephalic, without obvious abnormality, atraumatic Eyes: conjunctivae/corneas clear, EOM's intact Ears: normal external ear canals AU Nose: Nares normal. Septum midline. Mucosa normal. No drainage or sinus tenderness Throat: Lips, mucosa, and tongue normal. Teeth and gums normal Neck: supple, symmetrical, trachea midline. Lungs: clear to auscultation bilaterally Heart: regular rate and rhythm, S1, S2 normal, no murmur, click, rub or gallop Abdomen: soft, non-tender. Bowel sounds normal. No masses, No organomegaly Extremities: extremities normal, atraumatic, no cyanosis or edema Skin: Skin color, texture, turgor normal. No rashes or lesions Lymph nodes: No lymphadenopathy Neuro: No obvious focal deficit Bilateral chest wall examination showed postoperative changes without any masses and lymphadenopathy. There are some mild drainage coming from the left breast Exam as above PATH LABS @IMAGEIMP@ Assessment: Plan: There are no active problems to display for this patient. 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 Pathology showed ER negative, DE negative and HER2/bernice negative with Ki-67 of 1%. Status post bilateral mastectomy done on October 12, 2024. 1 lymph node was negative for metastatic carcinoma. Tumor was 1.3 cm metaplastic carcinoma. Patient will start adjuvant chemotherapy with dose dense Adriamycin and Cytoxan in 2 weeks. I have discussed the side effect of chemotherapy in detail. Mediport has been placed. Will refer for chemotherapy teaching and echocardiogram. Follow-up with me in 4 weeks with cycle #2 of chemotherapy. Hypertension. Patient is on metoprolol and lisinopril. Lisinopril dose was recently increased. ? TOBACCO COUNSELING She is not a tobacco/nicotine user. 11/02/2024 Sanford Og MD documented in this encounter Plan of Treatment Scheduled Orders Name Type Priority Associated Diagnoses Orde r Schedule ECHO COMPLETE - CONTRAST AND STRAIN IF INDICATED Echocardiogram Routine Malignant neoplasm of upper-outer quadrant of right breast in female, estrogen receptor negative (CMS/HCC) 1 Occurrences starting 11/02/2024 until 01/02/2026 Scheduled Referrals Name Type Priority Associated Diagnoses Orde r Schedule AMB REFERRAL TO CHEMO TEACHING Outpatient Referral Routine Malignant neoplasm of upper-outer quadrant of right breast in female, estrogen receptor negative (CMS/HCC) Ordered: 11/02/2024 documented as of this encounter Visit Diagnoses Diagnosis Malignant neoplasm of upper-outer quadrant of right breast in female, estrogen receptor negative (CMS/HCC)- Primary documented in this encounter Care Teams Silica Mixer Operator Relationship Specialty Start Date End Date Kim Sommers MD [address] [place] [phone] PCP - General Family Practice 09/30/24 documented as of this encounter
[2024-11-02] MEDS: SODIUM CHLORIDE 0.9% IV 1,000 ML 999 ML IV CONT (20:46)
[2024-11-02] MEDS: ACETAMINOPHEN 500 MG TABLET 1000 MG PO (20:47)
[2024-11-02] MEDS: PIPERACILLN/TAZ 3.375GM/NS50ML 3.375 GM/50 ML BAG IVPB (20:47)
[2024-11-02 21:04] LABS: Alanine Aminotransferase 20 U/L (6-35); Alkaline Phosphatase 165 U/L (38-126); Anion Gap 10 mmol/L (4-12); Aspartate Amino Transferase 27 U/L (14-36); Blood Urea Nitrogen 15 mg/dL (7-17); Calcium 10.1 mg/dL (8.4-10.2); Carbon Dioxide 27 mmol/L (22-30); Chloride 97 mmol/L (98-107); Estimated CRCL calculation 90 ml/min; Estimated Glomerular Filt Rate > 60; Glucose 149 mg/dL (65-110); Hematocrit 34.5 % (37.0-47.0); Hemoglobin 11.2 g/dL (12.0-15.0); Mean Corpuscular HGB Conc 32.5 g/dl (32-36); Mean Corpuscular Hemoglobin 27.2 pg (26-34); Mean Corpuscular Volume 83.7 fl (80-100); Mean Platelet Volume 9.7 fl (7.4-10.4); Platelet Count Result 253 k/mm3 (150-375); Red Blood Count 4.12 M/mm3 (4.2-5.4); Red Cell Distribution Width 13.8 % (11.5-14.5); Sodium 134 mmol/L (137-145); Total Protein 7.2 g/dL (6.3-8.2); White Blood Count 16.3 K/mm3 (4.5-10.0)
[2024-11-02 21:09] LABS: INR 1.2; Prothrombin Time 15.1 Seconds (11.1-14.7)
[2024-11-02 21:28] LABS: Partial Thromboplastin Time > 200.0 Seconds (22.3-36.8)
[2024-11-02 21:36] LABS: Band Neutrophils Percent 6 % (0-6); Eosinophils Absolute Manual 0.16 K/mm3 (0.02-0.50); Eosinophils Percent Manual 1 % (0-4); Lymphocytes Absolute Manual 0.16 K/mm3 (1.1-4.5); Monocytes Absolute Manual 0.65 K/mm3 (0.1-0.90); Monocytes Percent Manual 4 % (3-9); Neutrophils Absolute Manual 15.32 K/mm3 (1.3-6.7); Neutrophils Percent Manual 88 % (46-73); Total Cells Counted 100
[2024-11-02 21:37] LABS: Platelet Estimate Adequate (Adequate); Schistocytes None Seen
[2024-11-02] MEDS: VANCOMYCIN 1,250 MG/NS 250 ML 1,250 MG/250 ML BAG 166.67 MG IVPB ×2 (21:40→23:20)
[2024-11-02 21:51] LABS: Influenza A QL RT-PCR Negative (Negative); Influenza B QL RT-PCR Negative (Negative); RSV RNA, RT-PCR Negative (Negative); SARS-CoV-2 RNA PCR Negative (Negative)
[2024-11-02 22:50] LABS: Partial Thromboplastin Time 33.3 Seconds (22.3-36.8)
[2024-11-02] MEDS: POTASSIUM CHLORIDE 20 MEQ ER TABLET 40 MEQ PO (23:45)
[2024-11-03] VITALS (19 sets, daily range): BP systolic 135–184; BP diastolic 68–91; PULSE 62–96; RESP 13–27; TEMP 36.4–37.3; O2SAT 20–100; BMI 43.7
[2024-11-03] MEDS: SODIUM CHLORIDE 0.9% IV 1,000 ML 150 ML IV CONT ×2 (01:09→20:47)
[2024-11-03 01:11] LABS: Add Urine Microscopic? NO; Appearance Urine Clear (Clear); Bilirubin Urine Negative (Negative); Blood Urine Negative (Negative); Color Urine Yellow (Yellow); Glucose Urine UA Negative (Negative); Ketones Urine Negative (Negative); Leukocyte Esterase Ur Negative LEU/UL (Negative); Nitrate Urine Negative (Negative); Protein Urine Negative (Negative); Specific Grav Ur 1.011 (1.001-1.035); Urobilinogen Urine 0.2 mg/dL (<2.0); pH Urine 6.5 (5.0-9.0)
--- NOTE | 2024-11-03 01:22 | ADMGEN ---
This patient, Mandy Fontana, was admitted to [facility] Surg Room 314-01. Patient/family oriented to hospital policies and general routines including ID bracelet, bed and alarms, visiting hours, pain management, procedures, bathroom and other care routines, personal items, smoking policy, room service/diet, and visiting hours. Information on how to activate the Rapid Response Team has been discussed. Patient/Family are encouraged to report perceived risks to care and to ask questions if they do not understand what they are told or what they should do.
[2024-11-03] MEDS: ACETAMINOPHEN 325 MG TABLET 650 MG PO ×4 (01:53→20:51)
[2024-11-03] MEDS: PIPERACILLN/TAZ 3.375GM/NS50ML 3.375 GM/50 ML BAG IVPB ×3 (02:02→20:47)
--- NOTE | 2024-11-03 02:25 | PM.IMHP ---
H&P: HPI History of Present Illness Date/Time: 11/03/24 02:25 Chief Complaint: Fever, chills, vomiting Narrative: 63-year-old female with a past medical history of obesity, essential hypertension, GERD, chronic hypokalemia and triple negative breast cancer diagnosed August 10, 2024 with right breast status post bilateral mastectomy with reconstruction 10/12/2024 who presented to the ER with fever, chills, vomiting and headache. On arrival to the ER patient's T-max was 102?. PMFSH Past Medical History Medical History Vitamin D deficiency Diabetes Dysfunction of right eustachian tube Chest congestion GERD with esophagitis Pre-diabetes Hyperlipidemia Essential hypertension BPPV (benign paroxysmal positional vertigo) History of one miscarriage Abscess of anal and rectal regions Surgical History Surgical History History of hysterectomy H/O dilation and curettage Tubal ligation status History of removal of cyst H/O section Family History Family History (Updated 11/03/24 @ 01:24 by Dario Schmitz, RN) Other Family history of lung cancer Family history of malignant neoplasm Other Carcinoma of colon Diabetes mellitus Family history of cardiovascular disease Family history of coronary artery disease Social History Social History Smoking status: Never smoker Second hand tobacco smoke exposure: Yes Alcohol intake: never Alcohol use details: Maybe twice a year. Substance use: current Substance use type: marijuana Other substance usage details: daily for chronic back pain Last use: 05/18/21 Do You Feel Safe in your Home?: Yes Lack of Transportation: No Lack of Food: Never True Current Housing: I Have Housing Concerned About Future Housing: No Difficulty Paying Gas/Electric Bills: No Difficulty Paying for Meds: No Currently Unemployed: No Education: High School Diploma/GED Difficulty w/ Childcare or Family Care: Decline to Answer Living arrangements: with family Occupation/Education: retired Gender identity (if verbalized by the patient): Female Sexual Orientation (if Verbalized by the Patient): Straight or Heterosexual Spiritual care concerns: No Agree to blood products: Yes Meds Home Medications and Allergies Home Medications ?Medication ?Instructions ?Recorded ?Confirmed ?Type albuterol sulfate 90 mcg/actuation 2 puff inhalation Q4-6H PRN 07/10/23 11/03/24 Rx aerosol inhaler shortness of breath or wheezing #8.5 grams metoprolol tartrate 100 mg tablet 100 mg PO Q12H #180 tabs 02/13/24 11/03/24 Rx indapamide 1.25 mg tablet 1.25 mg PO DAILY #90 tabs 05/16/24 11/03/24 Rx potassium chloride 20 mEq 20 meq PO HS #90 tabs 05/16/24 11/03/24 Rx tablet,extended release pantoprazole 40 mg tablet,delayed 40 mg PO HS #90 tabs 09/06/24 11/03/24 Rx release silver sulfadiazine 1 % topical 1 applic topical DAILY #50 grams 10/25/24 11/03/24 Rx cream (Silvadene) blood sugar diagnostic #90 ea 10/26/24 11/03/24 Rx blood-glucose meter, wireless #1 ea 10/26/24 11/03/24 Rx lancets 33 gauge (CareTouch Twist #100 ea 10/26/24 11/03/24 Rx Lancet) lisinopril 30 mg tablet 30 mg PO DAILY #30 tabs 10/26/24 11/03/24 Rx Allergies Allergy/AdvReac Type Severity Reaction Status Date / Time No Known Allergies Allergy Unknown Verified 10/26/24 10:14 Vital Signs Vital Signs - 24 hr 11/02/24 18:54 11/02/24 19:30 11/02/24 19:30 Temperature 99.6 F 102.0 F H Pulse Rate 117 H 108 H 108 H Respiratory Rate 18 24 H 26 H Blood Pressure 231/97 H 199/103 H 199/103 H Pulse Oximetry 94 93 93 Oxygen Delivery Room Air Room Air 11/02/24 19:45 11/02/24 20:00 11/02/24 20:15 Temperature Pulse Rate 107 H 108 H 106 H Respiratory Rate 17 21 H 21 H Blood Pressure 200/98 H 191/97 H 176/80 H Pulse Oximetry 94 94 Oxygen Delivery 11/02/24 21:42 11/02/24 21:43 11/02/24 21:45 Temperature 99.2 F Pulse Rate 100 99 100 Respiratory Rate 20 13 11 L Blood Pressure 161/75 H 161/75 H 161/75 H Pulse Oximetry 93 93 92 Oxygen Delivery 11/02/24 22:00 11/02/24 23:04 11/03/24 00:00 Temperature Pulse Rate 99 96 94 Respiratory Rate 10 L 21 H 27 H Blood Pressure 146/75 H 156/81 H 156/82 H Pulse Oximetry 95 93 Oxygen Delivery 11/03/24 00:19 11/03/24 01:08 Temperature 98.3 F 98.0 F Pulse Rate 96 Respiratory Rate 20 Blood Pressure 184/91 H Pulse Oximetry 96 Oxygen Delivery H&P: Results Labs Labs: Short CBC 11/02/24 Range/Units 20:39 WBC 16.3 H (4.5-10.0) K/mm3 Hgb 11.2 L (12.0-15.0) g/dL Hct 34.5 L (37.0-47.0) % Plt Count 253 (150-375) k/mm3 BMP 11/02/24 20:39 Sodium 134 L Potassium 3.0 L Chloride 97 L Carbon Dioxide 27 BUN 15 D Creatinine 0.86 Glucose 149 H Calcium 10.1 Liver Function 11/02/24 Range/Units 20:39 Total Bilirubin 1.0 (0.2-1.3) mg/dL AST 27 (14-36) U/L ALT 20 (6-35) U/L Alkaline Phosphatase 165 H (38-126) U/L Albumin 4.0 (3.5-5.1) g/dL Urine 11/03/24 Range/Units 00:59 Urine Color Yellow (Yellow) Urine Appearance Clear (Clear) Urine pH 6.5 (5.0-9.0) Ur Specific Clover 1.011 (1.001-1.035) Urine Protein Negative (Negative) mg/dL Urine Glucose (UA) Negative (Negative) mg/dL
[2024-11-03] MEDS: METOPROLOL TARTRATE 50 MG TAB 100 MG PO ×3 (03:18→20:48)
[2024-11-03 06:09] LABS: Basophils Absolute Auto 0.1 K/mm3 (0.0-0.1); Basophils Percent Auto 0.3 % (0.2-1.2); Eosinophils Percent Auto 0.2 % (0-4.4); Hematocrit 31.5 % (37.0-47.0); Immature Granulocyte Absolute 0.13 K/mm3 (0.00-0.031); Immature Granulocyte Percent A 0.7 % (0-0.5); Lymphocytes Percent Auto 10.2 % (18.3-44.2); Mean Corpuscular HGB Conc 31.7 g/dl (32-36); Mean Corpuscular Hemoglobin 27.1 pg (26-34); Mean Corpuscular Volume 85.4 fl (80-100); Mean Platelet Volume 9.4 fl (7.4-10.4); Monocytes Absolute Auto 1.2 K/mm3 (0.1-0.6); Monocytes Percent Auto 6.7 % (2.6-8.5); Neutrophils Absolute Auto 14.4 K/mm3 (1.3-6.7); Neutrophils Percent Auto 81.9 % (45.5-73.1); Platelet Count Result 240 k/mm3 (150-375); Red Blood Count 3.69 M/mm3 (4.2-5.4); White Blood Count 17.6 K/mm3 (4.5-10.0)
[2024-11-03 06:19] LABS: Anion Gap 7 mmol/L (4-12); Blood Urea Nitrogen 14 mg/dL (7-17); Calcium 9.5 mg/dL (8.4-10.2); Carbon Dioxide 25 mmol/L (22-30); Chloride 103 mmol/L (98-107); Estimated CRCL calculation 93 ml/min; Estimated Glomerular Filt Rate > 60; Glucose 134 mg/dL (65-110); Magnesium 1.9 mg/dL (1.6-2.3); Potassium 3.3 mmol/L (3.4-5.0); Sodium 135 mmol/L (137-145)
[2024-11-03] MEDS: DOXYCYCLINE 100 MG/NS 100 ML 100 MG/100 ML BAG IVPB ×2 (09:26→21:59)
[2024-11-03] MEDS: lisinopriL 10 MG TABLET 30 MG PO (10:20)
[2024-11-03] MEDS: POTASSIUM CHLORIDE 20 MEQ ER TABLET 40 MEQ PO (10:21)
[2024-11-03] MEDS: INDAPAMIDE 1.25 MG TABLET PO (10:22)
[2024-11-03] MEDS: VANCOMYCIN 1,500 MG/NS 500 ML 1,500 MG/500 ML BAG 250 MG IVPB ×2 (10:26→23:12)
[2024-11-03 11:56] LABS: Glucose Point of Care 133 mg/dl (65-105)
--- NOTE | 2024-11-03 12:46 | PM.IMHP ---
H&P: HPI History of Present Illness Date/Time: 11/03/24 12:46 Chief Complaint: bilateral breast surgical wound infection Narrative: 63-year-old female past medical history of hypertension and recent breast cancer status post bilateral mastectomy about 3 weeks ago presented to the ER from oncologist visits due to bilateral breasts surgical wound infection. Patient reported several days ago she started having some discharge at the sites of surgery and has been following with her surgical team and adhering the recommending wound dressing, however at her oncology visit yesterday it was noted that some areas of necrosis which prompted referral to the ER for proper eval and care. Notd vomiting and fever but denies any diarrhea, SOB and dysuria, ER eval notable for HR 117, RR 24, BP 231/97, and saturating 94% on room air, WBC 17.6, Hb 10, K 3.3, CXR showed Bibasilar atelectasis and no focal infiltrates or effusion. She was started on Zosyn and Vanc, and Plastic surgery consulted prior to admission. Review of Systems Review of Systems: ALl other systems were reviewed and negative except as noted in the HPI above PMFSH Past Medical History Medical History Vitamin D deficiency Diabetes Dysfunction of right eustachian tube Chest congestion GERD with esophagitis Pre-diabetes Hyperlipidemia Essential hypertension BPPV (benign paroxysmal positional vertigo) History of one miscarriage Abscess of anal and rectal regions Surgical History Surgical History History of hysterectomy H/O dilation and curettage Tubal ligation status History of removal of cyst H/O section Family History Family History (Updated 11/03/24 @ 01:24 by Dario Schmitz, RN) Other Family history of lung cancer Family history of malignant neoplasm Other Carcinoma of colon Diabetes mellitus Family history of cardiovascular disease Family history of coronary artery disease Social History Social History Smoking status: Never smoker Second hand tobacco smoke exposure: Yes Alcohol intake: never Alcohol use details: Maybe twice a year. Substance use: current Substance use type: marijuana Other substance usage details: daily for chronic back pain Last use: 05/18/21 Do You Feel Safe in your Home?: Yes Lack of Transportation: No Lack of Food: Never True Current Housing: I Have Housing Concerned About Future Housing: No Difficulty Paying Gas/Electric Bills: No Difficulty Paying for Meds: No Currently Unemployed: No Education: High School Diploma/GED Difficulty w/ Childcare or Family Care: Decline to Answer Living arrangements: with family Occupation/Education: retired Gender identity (if verbalized by the patient): Female Sexual Orientation (if Verbalized by the Patient): Straight or Heterosexual Spiritual care concerns: No Agree to blood products: Yes Meds Home Medications and Allergies Home Medications ?Medication ?Instructions ?Recorded ?Confirmed ?Type albuterol sulfate 90 mcg/actuation 2 puff inhalation Q4-6H PRN 07/10/23 11/03/24 Rx aerosol inhaler shortness of breath or wheezing #8.5 grams metoprolol tartrate 100 mg tablet 100 mg PO Q12H #180 tabs 02/13/24 11/03/24 Rx indapamide 1.25 mg tablet 1.25 mg PO DAILY #90 tabs 05/16/24 11/03/24 Rx potassium chloride 20 mEq 20 meq PO HS #90 tabs 05/16/24 11/03/24 Rx tablet,extended release pantoprazole 40 mg tablet,delayed 40 mg PO HS #90 tabs 09/06/24 11/03/24 Rx release silver sulfadiazine 1 % topical 1 applic topical DAILY #50 grams 10/25/24 11/03/24 Rx cream (Silvadene) blood sugar diagnostic #90 ea 10/26/24 11/03/24 Rx blood-glucose meter, wireless #1 ea 10/26/24 11/03/24 Rx lancets 33 gauge (CareTouch Twist #100 ea 10/26/24 11/03/24 Rx Lancet) lisinopril 30 mg tablet 30 mg PO DAILY #30 tabs 10/26/24 11/03/24 Rx Allergies Allergy/AdvReac Type Severity Reaction Status Date / Time No Known Allergies Allergy Unknown Verified 11/03/24 04:00 Vital Signs Vital Signs - 24 hr 11/02/24 18:54 11/02/24 19:30 11/02/24 19:30 Temperature 99.6 F 102.0 F H Pulse Rate 117 H 108 H 108 H Respiratory Rate 18 24 H 26 H Blood Pressure 231/97 H 199/103 H 199/103 H Pulse Oximetry 94 93 93 Oxygen Delivery Room Air Room Air 11/02/24 19:45 11/02/24 20:00 11/02/24 20:15 Temperature Pulse Rate 107 H 108 H 106 H Respiratory Rate 17 21 H 21 H Blood Pressure 200/98 H 191/97 H 176/80 H Pulse Oximetry 94 94 Oxygen Delivery 11/02/24 21:42 11/02/24 21:43 11/02/24 21:45 Temperature 99.2 F Pulse Rate 100 99 100 Respiratory Rate 20 13 11 L Blood Pressure 161/75 H 161/75 H 161/75 H Pulse Oximetry 93 93 92 Oxygen Delivery 11/02/24 22:00 11/02/24 23:04 11/03/24 00:00 Temperature Pulse Rate 99 96 94 Respiratory Rate 10 L 21 H 27 H Blood Pressure 146/75 H 156/81 H 156/82 H Pulse Oximetry 95 93 Oxygen Delivery 11/03/24 00:19 11/03/24 01:00 11/03/24 01:08 Temperature 98.3 F 98.0 F Pulse Rate 96 96 Respiratory Rate 20 20 Blood Pressure 184/91 H Pulse Oximetry 96 96 Oxygen Delivery Room Air 11/03/24 03:18 11/03/24 05:55 11/03/24 10:20 Temperature 97.5 F L Pulse Rate 96 71 70 Respiratory Rate 13 Blood Pressure 156/78 H Pulse Oximetry 97 Oxygen Delivery Exam Narrative: General: alert and comfortable Eyes: EOMI, PERRLA ENNT External ears normal, Neck is supple, no masses, Respiratory systems: Clear to auscultation Cardiovascular S1, S2, normal rhythm, no murmur, rub, or gallop; no thrill or palpable murmurs on palpation. Gastrointestinal: soft, non-tender, and non-distended abdomen with no masses; BS present Skin: bilateral breast surgical site showed purulent drainage and necrotic skin region on the left Musculoskeletal: no abnormality and no tenderness, normal ROM Neurologic: Alert and oriented x3, non focal Mental Status Exam: normal affect H&P: Results Labs Labs: Short CBC 11/02/24 11/03/24 Range/Units 20:39 05:53 WBC 16.3 H 17.6 H (4.5-10.0) K/mm3 Hgb 11.2 L 10.0 L (12.0-15.0) g/dL Hct 34.5 L 31.5 L (37.0-47.0) % Plt Count 253 240 (150-375) k/mm3 BMP 11/02/24 11/03/24 20:39 05:53 Sodium 134 L 135 L Potassium 3.0 L 3.3 L Chloride 97 L 103 Carbon Dioxide 27 25 BUN 15 D 14 Creatinine 0.86 0.85 Glucose 149 H 134 H Calcium 10.1 9.5 Liver Function 11/02/24 Range/Units 20:39 Total Bilirubin 1.0 (0.2-1.3) mg/dL AST 27 (14-36) U/L ALT 20 (6-35) U/L Alkaline Phosphatase 165 H (38-126) U/L Albumin 4.0 (3.5-5.1) g/dL Urine 11/03/24 Range/Units 00:59 Urine Color Yellow (Yellow) Urine Appearance Clear (Clear) Urine pH 6.5 (5.0-9.0) Ur Specific [place] 1.011 (1.001-1.035) Urine Protein Negative (Negative) mg/dL Urine Glucose (UA) Negative (Negative) mg/dL Assessment and Plan Assessment and plan (1) Diabetes: Qualifiers: Diabetes mellitus type: type 2 Diabetes mellitus continuous churn buttermaker insulin use: without continuous churn buttermaker use Diabetes mellitus complication status: without complication Qualified Code(s): E11.9 - Type 2 diabetes mellitus without complications Code(s): E11.9 - Type 2 diabetes mellitus without complications Status: Chronic (2) Morbid obesity with body mass index (BMI) of 45.0 to 49.9 in adult: Code(s): E66.01 - Morbid (severe) obesity due to excess calories; Z68.42 - Body mass index [BMI] 45.0-49.9, adult Status: Acute (3) Primary metaplastic carcinoma of breast: Code(s): C50.919 - Malignant neoplasm of unspecified site of unspecified female breast Status: Acute (4) Triple negative breast cancer: Code(s): C50.919 - Malignant neoplasm of unspecified site of unspecified female breast; Z17.421 - Hormone receptor negative with human epidermal growth factor receptor 2 negative status Status: Acute (5) S/P bilateral mastectomy: Code(s): Z90.13 - Acquired absence of bilateral breasts and nipples Status: Acute Plan Sepsis Resolving Patient had Tachycardia, tachypnea, Leukocytosis SOurce of infection is wound infection at both breast following mastectomy Blood cultures pendign Conitneu ZOsyn, Vanc and Doxycycline Monitor Bilateral breast wound infection post mastectomy bilaterally continue above care Plastic surgery consulted Hypertensive urgency Contineu Lisinopril, add amlodipine DVT prophylaxis on Sq Lvoenox Full code SDM: Jm Fontana Hospitalist [facility] Advance Care Plan I have confirmed that the patient's Advanced Care Plan is present, code status is documented, or surrogate decision maker is listed in patient medical record.: Yes Medication Reconciliation I have utilized all available resources to obtain, update and review the patients current medications (includes all prescriptions, OTC, herbals, cannabis, and nutritional supplements).: Yes
--- NOTE | 2024-11-03 12:58 | WPDCN ---
Assessment and Plan Assessment and plan (1) Acquired absence of breast: Qualifiers: Laterality: bilateral Qualified Code(s): Z90.13 - Acquired absence of bilateral breasts and nipples Code(s): Z90.10 - Acquired absence of unspecified breast and nipple Status: Acute Assessment and Plan: 63yo female 3 months s/p bilateral mastecomy with TE and adm recon with bilateral seroma and what appears to be healing stable skin wounds but unable to determine other possible etiology of suspected infection given white count though possble GI in nature discussed impression and posisble diagnosis and option of continuing IV abx and observing vs operative intervention to debride, drain seroma, and place drains and washout implant. we discussed this would also be done in hopes of salvaging reconstruction in the event there is an early infectious etiology. discussed possible food specialist and adm removal if evidence of mal infection. Plan: 1) will plan on bilateral breast debridement, washout, drain placement, and possible food specialist removal. (2) Seroma of breast: Code(s): N64.89 - Other specified disorders of breast Status: Acute HPI Data of Consult Date/Time: 11/03/24 12:58 Requesting Physician: Emperatriz Barnard DO Primary Care Provider: UNKNOWN,DOCTOR Consult Narrative Narrative: 63yo female 3 weeks s/p b/l non nipple sparing mastectomy with immediate tissue food specialist and alloderm placement with left breast seroma presented to [facility] last night for nausea and vomiting and fever. workup noted elevated wbc and admitted for IV abx and plastics consulted to eval breast as possible site of infection. [facility] Past Medical History Medical History Vitamin D deficiency Diabetes Dysfunction of right eustachian tube Chest congestion GERD with esophagitis Pre-diabetes Hyperlipidemia Essential hypertension BPPV (benign paroxysmal positional vertigo) History of one miscarriage Abscess of anal and rectal regions Surgical History Surgical History History of hysterectomy H/O dilation and curettage Tubal ligation status History of removal of cyst H/O section Family History Family History (Updated 11/03/24 @ 01:24 by Dario Schmitz RN) Other Family history of lung cancer Family history of malignant neoplasm Other Carcinoma of colon Diabetes mellitus Family history of cardiovascular disease Family history of coronary artery disease Social History Social History Smoking status: Never smoker Second hand tobacco smoke exposure: Yes Alcohol intake: never Alcohol use details: Maybe twice a year. Substance use: current Substance use type: marijuana Other substance usage details: daily for chronic back pain Last use: 05/18/21 Do You Feel Safe in your Home?: Yes Lack of Transportation: No Lack of Food: Never True Current Housing: I Have Housing Concerned About Future Housing: No Difficulty Paying Gas/Electric Bills: No Difficulty Paying for Meds: No Currently Unemployed: No Education: High School Diploma/GED Difficulty w/ Childcare or Family Care: Decline to Answer Living arrangements: with family Occupation/Education: retired Gender identity (if verbalized by the patient): Female Sexual Orientation (if Verbalized by the Patient): Straight or Heterosexual Spiritual care concerns: No Agree to blood products: Yes Meds Home Medications and Allergies Home Medications ?Medication ?Instructions ?Recorded ?Confirmed ?Type albuterol sulfate 90 mcg/actuation 2 puff inhalation Q4-6H PRN 07/10/23 11/03/24 Rx aerosol inhaler shortness of breath or wheezing #8.5 grams metoprolol tartrate 100 mg tablet 100 mg PO Q12H #180 tabs 02/13/24 11/03/24 Rx indapamide 1.25 mg tablet 1.25 mg PO DAILY #90 tabs 05/16/24 11/03/24 Rx potassium chloride 20 mEq 20 meq PO HS #90 tabs 05/16/24 11/03/24 Rx tablet,extended release pantoprazole 40 mg tablet,delayed 40 mg PO HS #90 tabs 09/06/24 11/03/24 Rx release silver sulfadiazine 1 % topical 1 applic topical DAILY #50 grams 10/25/24 11/03/24 Rx cream (Silvadene) blood sugar diagnostic #90 ea 10/26/24 11/03/24 Rx blood-glucose meter, wireless #1 ea 10/26/24 11/03/24 Rx lancets 33 gauge (CareTouch Twist #100 ea 10/26/24 11/03/24 Rx Lancet) lisinopril 30 mg tablet 30 mg PO DAILY #30 tabs 10/26/24 11/03/24 Rx Allergies Allergy/AdvReac Type Severity Reaction Status Date / Time No Known Allergies Allergy Unknown Verified 11/03/24 04:00 Vital Signs Vital Signs - 24 hr 11/02/24 18:54 11/02/24 19:30 11/02/24 19:30 Temperature 37.6 C 38.9 C H Pulse Rate 117 H 108 H 108 H Respiratory Rate 18 24 H 26 H Blood Pressure 231/97 H 199/103 H 199/103 H Pulse Oximetry 94 93 93 Oxygen Delivery Room Air Room Air 11/02/24 19:45 11/02/24 20:00 11/02/24 20:15 Temperature Pulse Rate 107 H 108 H 106 H Respiratory Rate 17 21 H 21 H Blood Pressure 200/98 H 191/97 H 176/80 H Pulse Oximetry 94 94 Oxygen Delivery 11/02/24 21:42 11/02/24 21:43 11/02/24 21:45 Temperature 37.3 C Pulse Rate 100 99 100 Respiratory Rate 20 13 11 L Blood Pressure 161/75 H 161/75 H 161/75 H Pulse Oximetry 93 93 92 Oxygen Delivery 11/02/24 22:00 11/02/24 23:04 11/03/24 00:00 Temperature Pulse Rate 99 96 94 Respiratory Rate 10 L 21 H 27 H Blood Pressure 146/75 H 156/81 H 156/82 H Pulse Oximetry 95 93 Oxygen Delivery 11/03/24 00:19 11/03/24 01:00 11/03/24 01:08 Temperature 36.8 C 36.7 C Pulse Rate 96 96 Respiratory Rate 20 20 Blood Pressure 184/91 H Pulse Oximetry 96 96 Oxygen Delivery Room Air 11/03/24 03:18 11/03/24 05:55 11/03/24 10:20 Temperature 36.4 C L Pulse Rate 96 71 70 Respiratory Rate 13 Blood Pressure 156/78 H Pulse Oximetry 97 Oxygen Delivery Exam Narrative: seen and examined at bedside. pt reports improvement in nausea since admission and with NPO. notes b/l r>l breast pain that has changed since seen in office 3 days prior. stable known eschars at b/l inferior t-junction area with mild surrounding exudate but no purulence or drainage. no erythema. [place] bilateral seroma/fluid but no skin threatening. minimally tender Results Labs 11/03/24 05:53 11/03/24 05:53 Labs: Short CBC 11/02/24 11/03/24 Range/Units 20:39 05:53 WBC 16.3 H 17.6 H (4.5-10.0) K/mm3 Hgb 11.2 L 10.0 L (12.0-15.0) g/dL Hct 34.5 L 31.5 L (37.0-47.0) % Plt Count 253 240 (150-375) k/mm3 BMP 11/02/24 11/03/24 20:39 05:53 Sodium 134 L 135 L Potassium 3.0 L 3.3 L Chloride 97 L 103 Carbon Dioxide 27 25 BUN 15 D 14 Creatinine 0.86 0.85 Glucose 149 H 134 H Calcium 10.1 9.5 Liver Function 11/02/24 Range/Units 20:39 Total Bilirubin 1.0 (0.2-1.3) mg/dL AST 27 (14-36) U/L ALT 20 (6-35) U/L Alkaline Phosphatase 165 H (38-126) U/L Albumin 4.0 (3.5-5.1) g/dL Urine 11/03/24 Range/Units 00:59 Urine Color Yellow (Yellow) Urine Appearance Clear (Clear) Urine pH 6.5 (5.0-9.0) Ur Specific [place] 1.011 (1.001-1.035) Urine Protein Negative (Negative) mg/dL Urine Glucose (UA) Negative (Negative) mg/dL
--- NOTE | 2024-11-03 14:25 | WPDANESEPPF ---
Anes - Initial Pre Proc Eval Procedure: Operation Date: 11/03/24 16:00 Proposed Procedures p Bilateral Breast Debridement, Bilateral Breast Washout, Possible Bilateral Breast Tissue Traffic Control Flagger Removal - Diandra Gonzalez MD Date/Time: 11/03/24 14:25 Surgeon: Emperatriz Barnard DO Pre Op Diagnosis: Infected surgical wound Patient Data Age: 63 Gender: F Height: 1.78 m Weight: 138.4 kg Last Vital Signs Temp 36.4 C L 11/03/24 05:55 Pulse 70 11/03/24 10:20 Resp 13 11/03/24 05:55 BP 156/78 H 11/03/24 05:55 Pulse Ox 97 11/03/24 05:55 O2 Del Method Room Air 11/03/24 01:00 Allergies Allergy/AdvReac Type Severity Reaction Status Date / Time No Known Allergies Allergy Unknown Verified 11/03/24 04:00 Home Medications ?Medication ?Instructions ?Recorded ?Confirmed ?Type albuterol sulfate 90 mcg/actuation 2 puff inhalation Q4-6H PRN 07/10/23 11/03/24 Rx aerosol inhaler shortness of breath or wheezing #8.5 grams metoprolol tartrate 100 mg tablet 100 mg PO Q12H #180 tabs 02/13/24 11/03/24 Rx indapamide 1.25 mg tablet 1.25 mg PO DAILY #90 tabs 05/16/24 11/03/24 Rx potassium chloride 20 mEq 20 meq PO HS #90 tabs 05/16/24 11/03/24 Rx tablet,extended release pantoprazole 40 mg tablet,delayed 40 mg PO HS #90 tabs 09/06/24 11/03/24 Rx release silver sulfadiazine 1 % topical 1 applic topical DAILY #50 grams 10/25/24 11/03/24 Rx cream (Silvadene) blood sugar diagnostic #90 ea 10/26/24 11/03/24 Rx blood-glucose meter, wireless #1 ea 10/26/24 11/03/24 Rx lancets 33 gauge (CareTouch Twist #100 ea 10/26/24 11/03/24 Rx Lancet) lisinopril 30 mg tablet 30 mg PO DAILY #30 tabs 10/26/24 11/03/24 Rx Laboratory Tests 11/02/24 11/02/24 11/02/24 20:38 20:39 22:20 WBC 16.3 H K/mm3 (4.5-10.0) RBC 4.12 L M/mm3 (4.2-5.4) Hgb 11.2 L g/dL (12.0-15.0) Hct 34.5 L % (37.0-47.0) MCV 83.7 fl (80-100) MCH 27.2 pg (26-34) MCHC 32.5 g/dl (32-36) RDW 13.8 % (11.5-14.5) Plt Count 253 k/mm3 (150-375) MPV 9.7 fl (7.4-10.4) Immature Gran % (Auto) Not Reportable Neut % (Auto) Not Reportable Lymph % (Auto) Not Reportable [place] % (Auto) Not Reportable Eos % (Auto) Not Reportable Baso % (Auto) Not Reportable Lymph # (Auto) Not Reportable [place] # (Auto) Not Reportable Eos # (Auto) Not Reportable Baso # (Auto) Not Reportable Abs Immat Gran (auto) Not Reportable Absolute Neuts (auto) Not Reportable Absolute Nucleated RBC Not Reportable Total Counted 100 Neutrophils % (Manual) 88 H % (46-73) Band Neutrophils % 6 % (0-6) Lymphocytes % (Manual) 1.0 L % (18-44) Monocytes % (Manual) 4 % (3-9) Eosinophils % (Manual) 1 % (0-4) Nucleated RBC % Not Reportable Abs Neuts (Manual) 15.32 H K/mm3 (1.3-6.7) Abs Lymphs (Manual) 0.16 L K/mm3 (1.1-4.5) Abs Monocytes (Manual) 0.65 K/mm3 (0.1-0.90) Absolute Eos (Manual) 0.16 K/mm3 (0.02-0.50) Platelet Estimate Adequate (Adequate) Schistocytes None seen PT 15.1 H Seconds (11.1-14.7) INR 1.2 APTT > 200.0 H* Seconds 33.3 Seconds (22.3-36.8) (22.3-36.8) Sodium 134 L mmol/L (137-145) Potassium 3.0 L mmol/L (3.4-5.0) Chloride 97 L mmol/L (98-107) Carbon Dioxide 27 mmol/L (22-30) Anion Gap 10 mmol/L (4-12) BUN 15 D mg/dL (7-17) Creatinine 0.86 mg/dL (0.7-1.0) Estim Creat Clear Calc 90 ml/min Estimated GFR > 60 (59 - ) Glucose 149 H mg/dL (65-110) POC Capillary Glucose Lactic Acid 1.0 mmol/L (0.7-2.0) Calcium 10.1 mg/dL (8.4-10.2) Magnesium Total Bilirubin 1.0 mg/dL (0.2-1.3) AST 27 U/L (14-36) ALT 20 U/L (6-35) Alkaline Phosphatase 165 H U/L (38-126) C-Reactive Protein 4.0 H mg/dL (<1.0) Total Protein 7.2 g/dL (6.3-8.2) Albumin 4.0 g/dL (3.5-5.1) Urine Color Urine Appearance Urine pH Ur Specific [place] Urine Protein Urine Glucose (UA) Urine Ketones Ur Blood (Man) Urine Nitrate Urine Bilirubin Urine Urobilinogen Leukocyte Esterase Rfl Influenza A (RT-PCR) Negative (Negative) Influenza B (RT-PCR) Negative (Negative) RSV (RT-PCR) Negative (Negative) SARS-CoV-2 RNA (RT-PCR) Negative (Negative) 11/03/24 11/03/24 11/03/24 00:59 05:53 11:50 WBC 17.6 H K/mm3 (4.5-10.0) RBC 3.69 L M/mm3 (4.2-5.4) Hgb 10.0 L g/dL (12.0-15.0) Hct 31.5 L % (37.0-47.0) MCV 85.4 fl (80-100) MCH 27.1 pg (26-34) MCHC 31.7 L g/dl (32-36) RDW 14.0 % (11.5-14.5) Plt Count 240 k/mm3 (150-375) MPV 9.4 fl (7.4-10.4) Immature Gran % (Auto) 0.7 H % (0-0.5) Neut % (Auto) 81.9 H % (45.5-73.1) Lymph % (Auto) 10.2 L % (18.3-44.2) Taylor % (Auto) 6.7 % (2.6-8.5) Eos % (Auto) 0.2 % (0-4.4) Baso % (Auto) 0.3 % (0.2-1.2) Lymph # (Auto) 1.80 K/mm3 (0.9-3.2) [place] # (Auto) 1.2 H K/mm3 (0.1-0.6) Eos # (Auto) 0.0 K/mm3 (0-0.3) Baso # (Auto) 0.1 K/mm3 (0.0-0.1) Abs Immat Gran (auto) 0.13 H K/mm3 (0.00-0.031) Absolute Neuts (auto) 14.4 H K/mm3 (1.3-6.7) Absolute Nucleated RBC 0.000 K/mm3 (0.0-0.012) Total Counted Neutrophils % (Manual) Band Neutrophils % Lymphocytes % (Manual) Monocytes % (Manual) Eosinophils % (Manual) Nucleated RBC % 0.0 % (0.0-0.2) Abs Neuts (Manual) Abs Lymphs (Manual) Abs Monocytes (Manual) Absolute Eos (Manual) Platelet Estimate Schistocytes PT INR APTT Sodium 135 L mmol/L (137-145) Potassium 3.3 L mmol/L (3.4-5.0) Chloride 103 mmol/L (98-107) Carbon Dioxide 25 mmol/L (22-30) Anion Gap 7 mmol/L (4-12) BUN 14 mg/dL (7-17) Creatinine 0.85 mg/dL (0.7-1.0) Estim Creat Clear Calc 93 ml/min Estimated GFR > 60 (59 - ) Glucose 134 H mg/dL (65-110) POC Capillary Glucose 133 H mg/dl (65-105) Lactic Acid Calcium 9.5 mg/dL (8.4-10.2) Magnesium 1.9 mg/dL (1.6-2.3) Total Bilirubin AST ALT Alkaline Phosphatase C-Reactive Protein Total Protein Albumin Urine Color Yellow (Yellow) Urine Appearance Clear (Clear) Urine pH 6.5 (5.0-9.0) Ur Specific [place] 1.011 (1.001-1.035) Urine Protein Negative mg/dL (Negative) Urine Glucose (UA) Negative mg/dL (Negative) Urine Ketones Negative mg/dL (Negative) Ur Blood (Man) Negative (Negative) Urine Nitrate Negative (Negative) Urine Bilirubin Negative (Negative) Urine Urobilinogen 0.2 mg/dL (<2.0) Leukocyte Esterase Rfl Negative GABBI/UL (Negative) Influenza A (RT-PCR) Influenza B (RT-PCR) RSV (RT-PCR) SARS-CoV-2 RNA (RT-PCR) Patient hx anesthesia problems: none Family hx anesthesia problems: none Results Review: All pre-operative results and documents have been reviewed as part of the pre-operative evaluation. [facility] Past Medical History Medical History Vitamin D deficiency Diabetes Dysfunction of right eustachian tube Chest congestion GERD with esophagitis Pre-diabetes Hyperlipidemia Essential hypertension BPPV (benign paroxysmal positional vertigo) History of one miscarriage Abscess of anal and rectal regions Surgical History Surgical History History of hysterectomy H/O dilation and curettage Tubal ligation status History of removal of cyst H/O section Family History Family History Other Family history of lung cancer Family history of malignant neoplasm Other Carcinoma of colon Diabetes mellitus Family history of cardiovascular disease Family history of coronary artery disease Social History Social History Smoking status: Never smoker Second hand tobacco smoke exposure: Yes Alcohol intake: never Alcohol use details: Maybe twice a year. Substance use: current Substance use type: marijuana Other substance usage details: daily for chronic back pain Last use: 05/18/21 Do You Feel Safe in your Home?: Yes Lack of Transportation: No Lack of Food: Never True Current Housing: I Have Housing Concerned About Future Housing: No Difficulty Paying Gas/Electric Bills: No Difficulty Paying for Meds: No Currently Unemployed: No Education: High School Diploma/GED Difficulty w/ Childcare or Family Care: Decline to Answer Living arrangements: with family Occupation/Education: retired Gender identity (if verbalized by the patient): Female Sexual Orientation (if Verbalized by the Patient): Straight or Heterosexual Spiritual care concerns: No Agree to blood products: Yes Anes - Eval Final PreProcedure Day of Procedure 11/03/24 14:25 Patient weight: morbidly obese Heart: regular rate and rhythm Lungs: clear to auscultation Airway: Mallampati scale class III Neurological: alert and oriented Last oral intake: >/= 8 hours ASA classification: III Emergent: no Anesthetic plan: proceed Anesthesia type and monitoring: general LMA and standard monitoring Results Review: All pre-operative results and documents have been reviewed as part of the pre-operative evaluation. Informed Consent: The patient's anesthetic plan and its attendant risks and benefits were discussed with the patient/family/POA. Questions were solicited and answers provided to the satisfaction of the patient/family/POA.
--- NOTE | 2024-11-03 14:40 | WPDHPUPDATE1 ---
History and Physical Update Update Date/Time: 11/03/24 14:40 Patient seen and examined in pre-operative holding area. No interval change in medical history or symptoms. Patient remembers previous discussion of benefits and alternatives to procedure. Continues to desire to proceed with bilateral breast debridement, bilateral breast washout, possible bilateral breast tissue heavy equipment engine mechanic removal. I reviewed the risks including but not limited to bleeding ,infection, asymmetry, undesireable cosmetic appearance, partial/total skin loss, no change or worsening of symptoms, seroma, change in sensation. I discussed the possible use of assistants and their level of participation in the case. Patient stated understanding and signed the consent form wishing to proceed
[2024-11-03 14:48] LABS: Glucose Point of Care 121 mg/dl (65-105)
[2024-11-03] MEDS: LIDO 1%/EPINEPHRINE 1:100,000 20 ML VIAL 30 ML INFILTRATE (15:02)
[2024-11-03] MEDS: BUPivacaine HCL 0.5% 10 ML AMP 30 ML INFILTRATE (15:03)
[2024-11-03] MEDS: NACL IRRIGATION (15:03)
[2024-11-03] MEDS: [UNRECOGNIZED DRUG - OTHER] IRRIGATION (15:03)
[2024-11-03] MEDS: VANCOMYCIN HCL IRRIGATION (15:03)
[2024-11-03] MEDS: HYDROGEN PEROXIDE 3% SOLN(*SP) 473 ML BOTTLE 237 ML IRRIGATION (15:04)
--- NOTE | 2024-11-03 15:04 | S_PTH ---
PATIENT: Mandy Fontana LOC: [id number] U#:[id number] AGE/SX: 63/F ROOM: 314 RE11/02/[address]: Gurmeet Morales MD : 1960 BED: 01 DIS: 11/07/2024 SPEC #: [id number] RECD: 11/04/24 08:15 STATUS: JOSHUA RIOZ #: [id number] CIARAN: 11/03/24 15:[address]: Diandra Gonzalez DEPT: [facility] Surgical RECD BY: Corin Richardson ENTERED: 11/04/24 08:32 SP TYPE: Surgical OTHR DR: Kim Sommers, MD Emperatriz Barnard, DO Tissues: A - Breast Tissue B - Breast Tissue Procedures: Hematoxylin and Eosin Stain Gross and Microscopic Level 4
[2024-11-03] MEDS: LACTATED RINGERS 1,000 ML 30 ML IV CONT (15:47)
--- NOTE | 2024-11-03 15:51 | W.PM.PROC2 ---
Procedure Note - Detailed Date of Procedure 11/03/24 Pre-op Diagnosis open wound bilateral breast, personal history of breast cancer Post-op Diagnosis Same Procedure Performed bilateral breast debridement, washout, adjacent tissue transfer closure and drain placement Surgeon Diandra Gonzalez MD Anesthesia General Description of Procedure Patient seen in the preoperative holding area where the breasts were marked and the consent form was signed. Patient was taken back to the operating room placed on the table in the supine position. Time-out was performed with Anesthesia, surgeon, and staff agreeing on patient's name, site, and surgery to be performed. SCDs were placed on the lower extremities and inflated. After general anesthesia was administered the breasts were prepped and draped in usual sterile fashion. I turned my attention to the left breast where I used a 15 blade scalpel to did sharply debride the eschar and nonviable subcutaneous tissue and areas of fat necrosis around the T-junction going down to her buried dermal pedicle from her reconstruction surgery. There was no clear evidence of undermining from this wound measuring 4 x 3 cm. After this was debrided down to healthy bleeding tissue I irrigated it 1st with peroxide, then Betadine, then vancomycin irrigation. I changed gloves and instruments and then using Bovie cautery made an incision in this pedicle to allow insertion of a clean Yankauer suction after taking a culture swab of the cavity fluid and then i aspirated approximately 150 cc of tea colored seroma fluid. The left breast tissue obstetrics gynecology physician pocket was irrigated with a mixture of peroxide, Betadine, antibiotic irrigation followed normal saline until irrigation ran clear. A 10 [place] KYLE drain was placed in the pocket of the tissue obstetrics gynecology physician coming out the lower lateral chest/abdomen and hooked to bulb suction. I repaired the incision in the buried dermal pedicle with 3-0 Vicryl suture. In order to achieve closure I elevated the lateral skin flap undermining it in the subcutaneous plane to allow for it to advance and close the defect. This was secured with 3-0 Vicryl suture for dermis and 2-0 nylon for skin. Next I took my attention to the right breast where a similar procedure was performed. Gloves were changed as were fresh instruments. Using a 15 blade scalpel I sharply debrided and excised the nonviable eschar subcutaneous tissue and fat necrosis around the T-junction down to the buried dermal pedicle. The resulting defect measured 4 x 4 cm. There appeared to be a part of questionable viability to this pedicle and there was tracking going to the right lateral breast pocket as well as a separate tract going superomedially. Culture was taken of the fluid which was dark brown but clear in color without clear purulence or malodor. I proceeded with copious irrigation of this right breast pocket and tracking cavity with peroxide followed by Betadine followed by antibiotic irrigation and then with normal saline until the fluid ran clear again using a new Yankauer suction when doing so. I placed a neither 10 [place] KYLE drain coming out the superior abdomen laterally going into this pocket. This drain was placed to bulb suction. Again in order to achieve closure I used Bovie cautery to elevate the superolateral skin flap to allow for rotation and advancement medially and inferiorly to achieve primary closure. Excess skin was excised for dog-ear management with 15 blade scalpel and Bovie as needed. The flap was secured with 3-0 Vicryl suture for dermis and 2-0 nylon for skin. A dressing of Xeroform, 4x4s, ABDs and breast binder was then applied. The patient was awakened from anesthesia and transferred to the recovery room in stable condition. Complications: None Estimated blood loss: 15 cc Disposition: Patient tolerated the procedure well and will be returning to the floor for further observation and antibiotic management. IV Fluids 50 Urine Output 1,150 [facility] Billing Surgery - Charge Forward: Surgery Billing ([id number], [id number], [id number], )
[2024-11-03] MEDS: fentaNYL CITRATE INJ (*CRX) 100 MCG/2 ML VIAL 25 MCG IV PUSH (16:55)
[2024-11-03 17:29] LABS: Glucose Point of Care 139 mg/dl (65-105)
[2024-11-03] MEDS: amLODIPine BESYLATE 5 MG TABLET PO (17:49)
[2024-11-03] MEDS: ENOXAPARIN 40 MG/0.4 ML SYRINGE SUB-Q (17:50)
[2024-11-03] MEDS: PANTOPRAZOLE 40 MG TABLET PO (20:48)
[2024-11-03 21:12] LABS: Glucose Point of Care 225 mg/dl (65-105)
--- NOTE | 2024-11-04 | ECHO_ITS ---
Patient Info Name: Mandy Fontana Age: 63 years : 1960 Gender: Female Ht: 70 in Wt: 305 lbs BSA: 2.68 m2 HR: 71 bpm BP: 135 / 68 mmHg Heart Rhythm: Sinus Rhythm Technical Quality: Poor Exam Date: 11/04/2024 12:32 PM Patient Status: I Admit Date: 11/02/2024 Exam Type: CA echo doppler color flow Complete two-dimensional, color flow and Doppler transthoracic echocardiogram is performed. Staff Referring Physician: Tone Montemayor MD Commercial Instructor Supervisor: Katty Ojeda Attending Provider: Emperatriz Barnard DO Summary 1. Complete two-dimensional, color flow and Doppler transthoracic echocardiogram is performed. 2. Technically suboptimal study due to poor sonographic images. No apical images obtained, and subcostal images were obtained in lieu of apical images. 3. Left ventricular chamber dimension is normal. 4. There is mild concentric increased left ventricular wall thickness. 5. Left ventricular systolic function is normal, estimated at 60-65. 6. The left ventricular diastolic function is grade I diastolic dysfunction. 7. E/e' 9 is minimally elevated. 8. Left atrial chamber dimension is moderately enlarged. 9. Right atrial chamber dimension is moderately enlarged. 10. There is mild aortic valve sclerosis. 11. Dilated inferior vena cava with >50% collapse upon inspiration consistent with elevated right atrial pressure, 10 mmHg. Left Ventricle Left ventricular chamber dimension is normal. Left ventricular systolic function is normal, estimated at 60-65. There is mild concentric increased left ventricular wall thickness. The left ventricular diastolic function is grade I diastolic dysfunction. Technically suboptimal study due to poor sonographic images. No apical images obtained, and subcostal images were obtained in lieu of apical images. E/e' 9 is minimally elevated. Right Ventricle Right ventricular chamber dimension is normal. Right ventricular systolic function is normal and with normal TAPSE 2.2 cm. Left Atria Left atrial chamber dimension is moderately enlarged. Right Atria Right atrial chamber dimension is moderately enlarged. Aortic Valve The aortic valve is trileaflet. There is mild aortic valve sclerosis. There is no aortic valve stenosis. There is no aortic valve regurgitation. Pulmonic Valve The pulmonic valve is not well visualized. Mitral Valve There is no mitral valve stenosis. There is no mitral valve regurgitation. Tricuspid Valve There is no tricuspid valve regurgitation. Pericardium/Pleural There is no pericardial effusion. Inferior Vena Cava Dilated inferior vena cava with >50% collapse upon inspiration consistent with elevated right atrial pressure, 10 mmHg. Aorta The aortic root size at the sinus of Valsalva is not well visualized. Left Ventricular Outflow Tract Name Value Normal LVOT 2D LVOT Diameter 2.1 cm LVOT Doppler LVOT Peak Velocity 96 cm/s LVOT Peak Gradient 4 mmHg LVOT Mean Gradient 2 mmHg LVOT VTI 23 cm LVOT VTI/AV VTI Ratio 0.8 LVOT Stroke Volume 76 ml LVOT CO 4.1 l/min LVOT CI 1.5 l/min/m2 Pulmonic Valve Name Value Normal RVOT Doppler RVOT Peak Velocity 95 cm/s RVOT Peak Gradient 4 mmHg PV Doppler PV Peak Velocity 110 cm/s PV Peak Gradient 5 mmHg Mitral Valve Name Value Normal MV Diastolic Function MV E Peak Velocity 51 cm/s MV A Peak Velocity 49 cm/s MV E/A 1.0 MV Decel Time (PW) 170 ms MV Annular TDI MV E/e' (Septal) 9.9 MV E/e' (Lateral) 9.0 MV E/e' (Average) 9.4 Tricuspid Valve Name Value Normal Estimated PAP/RSVP RA Pressure 10 mmHg <=5 TV Annular TDI TV Lateral Nancy s' Velocity 10.6 cm/s >=9.5 Aortic Valve Name Value Normal AV Doppler AV Peak Velocity 181 cm/s AV Peak Gradient 13 mmHg AV Mean Gradient 6 mmHg AV VTI 29 cm AV Area (Cont Eq VTI) 2.6 cm2 >=3.0 AV Area (Cont Eq Drew) 1.8 cm2 AV DI (Drew) 0.53 AV Regurgitation 2D LVOT Area 3.3 cm2 Ventricles Name Value Normal LV Dimensions 2D/MM IVS Diastolic Thickness (2D) 1.4 cm 0.6-1.0 LVID Diastole (2D) 5.1 cm 3.8-5.2 LVIW Diastolic Thickness (2D) 1.1 cm 0.6-0.9 LVID Systole (2D) 3.5 cm 2.2-3.5 LVOT Diameter 2.1 cm LV Mass (2D Cubed) 259.64 g 67.00-162.00 LV Mass Index (2D Cubed) 97 g/m2 43-95 Relative Wall Thickness (2D) 0.43 <=0.42 LV Fractional Shortening/Ejection Fraction 2D/MM LV Fractional Shortening (2D) 32 % 27-45 LV EF (2D Teichholz) 60 % Atria Name Value Normal LA Dimensions LA Volume (4C A-L) 151 ml RA Dimensions RA Area (4C) 32.7 cm2 <=18.0 Report Signatures
[2024-11-04] MEDS: PIPERACILLN/TAZ 3.375GM/NS50ML 3.375 GM/50 ML BAG IVPB ×4 (02:50→20:36)
[2024-11-04 06:00] VITALS: BP 170/85; PULSE 56; RESP 12; TEMP 36.2; O2SAT 97
[2024-11-04 06:05] LABS: Basophils Percent Auto 0.2 % (0.2-1.2); Hematocrit 30.5 % (37.0-47.0); Hemoglobin 9.7 g/dL (12.0-15.0); Immature Granulocyte Absolute 0.11 K/mm3 (0.00-0.031); Immature Granulocyte Percent A 0.9 % (0-0.5); Lymphocytes Absolute Auto 1.24 K/mm3 (0.9-3.2); Lymphocytes Percent Auto 9.7 % (18.3-44.2); Mean Corpuscular HGB Conc 31.8 g/dl (32-36); Mean Corpuscular Hemoglobin 27.3 pg (26-34); Mean Corpuscular Volume 85.9 fl (80-100); Mean Platelet Volume 9.6 fl (7.4-10.4); Monocytes Absolute Auto 0.5 K/mm3 (0.1-0.6); Monocytes Percent Auto 3.9 % (2.6-8.5); Neutrophils Absolute Auto 10.9 K/mm3 (1.3-6.7); Neutrophils Percent Auto 85.3 % (45.5-73.1); Platelet Count Result 234 k/mm3 (150-375); Red Blood Count 3.55 M/mm3 (4.2-5.4); Red Cell Distribution Width 13.9 % (11.5-14.5); White Blood Count 12.8 K/mm3 (4.5-10.0)
[2024-11-04 06:26] LABS: Alanine Aminotransferase 22 U/L (6-35); Albumin Level 3.4 g/dL (3.5-5.1); Alkaline Phosphatase 140 U/L (38-126); Anion Gap 7 mmol/L (4-12); Aspartate Amino Transferase 26 U/L (14-36); Bilirubin,Total 0.7 mg/dL (0.2-1.3); Blood Urea Nitrogen 14 mg/dL (7-17); Calcium 9.8 mg/dL (8.4-10.2); Carbon Dioxide 26 mmol/L (22-30); Chloride 105 mmol/L (98-107); Estimated CRCL calculation 91 ml/min; Estimated Glomerular Filt Rate > 60; Glucose 149 mg/dL (65-110); Potassium 3.6 mmol/L (3.4-5.0); Sodium 138 mmol/L (137-145); Total Protein 6.5 g/dL (6.3-8.2)
--- NOTE | 2024-11-04 07:11 | P.PN_ITS ---
Progress Note: A&P Assessment and Plan (1) Acquired absence of breast: Qualifiers: Laterality: bilateral Qualified Code(s): Z90.13 - Acquired absence of bilateral breasts and nipples Code(s): Z90.10 - Acquired absence of unspecified breast and nipple Status: Acute Assessment and Plan: 63yo female 3 weeks s/p b/l mastectomy with TE and adm placement and omrrissey pattern mastopexy complicated by post-op wound healing complication admitted with increasing WBC pod#1 s/p debridement, washout and closure doing well. wbc decreasing. discussed impression and Dx and plan for continued IV abx and follow up on cultures with transition to PO and f/u in office next week if discharged over the weekend Plan: 1) 1) cont KYLE drains - record output q6-8hours. strip drains 2) cont surgical bra and keep dressing in place - ok to change underlying gauze if necessary 3) transition to PO abx when/if cultures result or as apporproate per pcp 4) if discharged over the weekend f/u plastics next week thursday or thursday Subjective Date/time seen: 11/04/24 07:11 Interval history: pt. seen and examined at bedside. no interval concerns overnight and repots doing well this AM. pain controlled Exam Narrative: dressing c/d/i with small smots of dry sanguinous staining. light serosanguinous fluid in drains holding suction. skin flaps viable. Objective Data Vital Signs Vital Signs: Vital Signs - 24 hr 11/03/24 08:00 11/03/24 10:20 11/03/24 14:30 Temperature 37.3 C Pulse Rate 70 65 Respiratory Rate 14 Blood Pressure 168/72 H Pulse Oximetry 98 Oxygen Delivery Room Air Room Air Oxygen Flow Rate 11/03/24 15:47 11/03/24 16:00 11/03/24 16:15 Temperature 36.7 C Pulse Rate 66 63 63 Respiratory Rate 14 16 18 Blood Pressure 156/77 H 166/78 H 168/76 H Pulse Oximetry 100 100 100 Oxygen Delivery Simple Face Mask Room Air Simple Face Mask Oxygen Flow Rate 10 10 11/03/24 16:30 11/03/24 16:45 11/03/24 17:00 Temperature Pulse Rate 62 65 64 Respiratory Rate 20 20 18 Blood Pressure 170/79 H 176/80 H 174/80 H Pulse Oximetry 100 20 L 92 Oxygen Delivery Room Air Room Air Room Air Oxygen Flow Rate 11/03/24 17:15 11/03/24 17:30 11/03/24 20:00 Temperature Pulse Rate 64 65 71 Respiratory Rate 18 18 16 Blood Pressure 176/75 H Pulse Oximetry 92 92 94 Oxygen Delivery Room Air Room Air Room Air Oxygen Flow Rate 11/03/24 20:48 11/03/24 21:32 11/04/24 06:00 Temperature 36.6 C 36.2 C L Pulse Rate 65 71 56 L Respiratory Rate 16 12 Blood Pressure 135/68 170/85 H Pulse Oximetry 94 97 Oxygen Delivery Oxygen Flow Rate Intake/Output Intake/Output: Intake & Output 11/01/24 11/02/24 11/03/24 11/04/24 23:59 23:59 23:59 23:59 Intake Total 1300 2251 1100 Output Total 2785 52 Balance 1300 534 1048 Meds/Results Medications: Active Medications Generic Name Dose Route Start Last Admin Trade Name Freq PRN Reason Stop Dose Admin Acetaminophen 650 mg 11/02/24 23:11 11/03/24 20:51 Acetaminophen 325 Mg Tablet PO 650 mg Q4H PRN Administration Mild Pain (1-3) or Fever Albuterol 2 puff 11/03/24 02:28 Albuterol Sulfate (*Sp) Aerosol 1 Puff INHALATION Q6HRT PRN shortness of breath or wheezing Amlodipine Besylate 5 mg 11/03/24 13:10 11/03/24 17:49 Amlodipine Besylate 5 Mg Tablet PO 5 mg DAILY STEPHANIE Administration Enoxaparin Sodium 40 mg 11/03/24 13:10 11/03/24 17:50 Enoxaparin 40 Mg/0.4 Ml Syringe SUB-Q 40 mg DAILY STEPHANIE Administration Piperacillin/Tazobactam/Dextrose 3.375 gm in 50 mls @ 100 mls/hr 11/03/24 03:00 11/04/24 03:20 Zosyn 3.375 Gm/Ns 50 Ml IVPB Infused Q6H STEPHANIE Infusion Vancomycin HCl 1,500 mg in 500 mls @ 250 mls/hr 11/03/24 10:00 11/04/24 01:12 Vancomycin 1,500 Mg/Ns 500 Ml IVPB Infused Q12H STEPHANIE Infusion Sodium Chloride 1,000 mls @ 150 mls/hr 11/02/24 23:15 11/03/24 20:47 Normal Saline Iv IV CONT 150 mls/hr .Q6H40M STEPHANIE Administration Doxycycline Hyclate 100 mg in 100 mls @ 100 mls/hr 11/03/24 09:00 11/03/24 22:59 Vibramycin 100 Mg/Ns 100 Ml IVPB Infused Q12HR STEPHANIE Infusion Indapamide 1.25 mg 11/03/24 09:00 11/03/24 10:22 Indapamide 1.25 Mg Tablet PO 1.25 mg DAILY STEPHANIE Administration Lisinopril 30 mg 11/03/24 09:00 11/03/24 10:20 Lisinopril 10 Mg Tablet PO 30 mg DAILY STEPHANIE Administration Metoprolol Tartrate 100 mg 11/03/24 02:30 11/03/24 20:48 Metoprolol Tartrate 50 Mg Tab PO 100 mg Q12HR STEPHANIE Administration Pantoprazole Sodium 40 mg 11/03/24 21:00 11/03/24 20:48 Pantoprazole 40 Mg Tablet PO 40 mg HS STEPHANIE Administration Perflutren Lipid Microsphere 0 ml 11/03/24 11:50 Perflutren Lipid Microspheres 1.5 Ml Vial Diluted To 10 Ml Total Volume IV PUSH 11/06/24 11:50 ONCE PRN adequate visualization Protocol Potassium Chloride 40 meq 11/03/24 09:00 11/03/24 10:21 Potassium Chloride 20 Meq Er Tablet PO 40 meq DAILY STEPHANIE Administration Radiology Results: ITS Impressions Chest X-Ray 11/02/24 21:05 IMPRESSION: Bibasilar atelectasis, without focal infiltrate or effusion. Labs Labs: Laboratory Results - last 24 hr 11/03/24 11/03/24 11/03/24 11:50 14:46 17:24 WBC RBC Hgb Hct MCV MCH MCHC RDW Plt Count MPV Immature Gran % (Auto) Neut % (Auto) Lymph % (Auto) [place] % (Auto) Eos % (Auto) Baso % (Auto) Lymph # (Auto) [place] # (Auto) Eos # (Auto) Baso # (Auto) Abs Immat Gran (auto) Absolute Neuts (auto) Absolute Nucleated RBC Nucleated RBC % Sodium Potassium Chloride Carbon Dioxide Anion Gap BUN Creatinine Estim Creat Clear Calc Estimated GFR Glucose POC Capillary Glucose 133 H 121 H 139 H Calcium Magnesium Total Bilirubin AST ALT Alkaline Phosphatase Total Protein Albumin 11/03/24 11/04/24 20:31 05:49 WBC 12.8 H RBC 3.55 L Hgb 9.7 L Hct 30.5 L MCV 85.9 MCH 27.3 MCHC 31.8 L RDW 13.9 Plt Count 234 MPV 9.6 Immature Gran % (Auto) 0.9 H Neut % (Auto) 85.3 H Lymph % (Auto) 9.7 L [place] % (Auto) 3.9 Eos % (Auto) 0.0 Baso % (Auto) 0.2 Lymph # (Auto) 1.24 [place] # (Auto) 0.5 Eos # (Auto) 0.0 Baso # (Auto) 0.0 Abs Immat Gran (auto) 0.11 H Absolute Neuts (auto) 10.9 H Absolute Nucleated RBC 0.000 Nucleated RBC % 0.0 Sodium 138 Potassium 3.6 Chloride 105 Carbon Dioxide 26 Anion Gap 7 BUN 14 Creatinine 0.87 Estim Creat Clear Calc 91 Estimated GFR > 60 Glucose 149 H POC Capillary Glucose 225 H Calcium 9.8 Magnesium 2.0 Total Bilirubin 0.7 AST 26 ALT 22 Alkaline Phosphatase 140 H Total Protein 6.5 Albumin 3.4 L
--- NOTE | 2024-11-04 08:08 | WPDANESPN ---
Anes - Prog Note Post-Op Date/Time: 11/04/24 08:08 Cardiovascular status: normal Respiratory status: normal Airway patency: baseline Mental status: baseline Vital Signs: Last Vital Signs Temp 36.2 C L 11/04/24 06:00 Pulse 56 L 11/04/24 06:00 Resp 12 11/04/24 06:00 BP 170/85 H 11/04/24 06:00 Pulse Ox 97 11/04/24 06:00 O2 Del Method Room Air 11/03/24 20:00 O2 Flow Rate 10 11/03/24 16:15 Pain Score (VAS): 3 I/O: Intake & Output 11/03/24 11/04/24 11/04/24 23:59 07:59 15:59 Intake Total 251 1100 Output Total 1635 52 Balance -1384 1048 Laboratory Tests 11/04/24 05:49 11/04/24 05:49 11/03/24 11/03/24 11/03/24 11:50 14:46 17:24 WBC RBC Hgb Hct MCV MCH MCHC RDW Plt Count MPV Immature Gran % (Auto) Neut % (Auto) Lymph % (Auto) [place] % (Auto) Eos % (Auto) Baso % (Auto) Lymph # (Auto) [place] # (Auto) Eos # (Auto) Baso # (Auto) Abs Immat Gran (auto) Absolute Neuts (auto) Absolute Nucleated RBC Nucleated RBC % Sodium Potassium Chloride Carbon Dioxide Anion Gap BUN Creatinine Estim Creat Clear Calc Estimated GFR Glucose POC Capillary Glucose 133 H 121 H 139 H Calcium Magnesium Total Bilirubin AST ALT Alkaline Phosphatase Total Protein Albumin 11/03/24 11/04/24 20:31 05:49 WBC 12.8 H RBC 3.55 L Hgb 9.7 L Hct 30.5 L MCV 85.9 MCH 27.3 MCHC 31.8 L RDW 13.9 Plt Count 234 MPV 9.6 Immature Gran % (Auto) 0.9 H Neut % (Auto) 85.3 H Lymph % (Auto) 9.7 L [place] % (Auto) 3.9 Eos % (Auto) 0.0 Baso % (Auto) 0.2 Lymph # (Auto) 1.24 [place] # (Auto) 0.5 Eos # (Auto) 0.0 Baso # (Auto) 0.0 Abs Immat Gran (auto) 0.11 H Absolute Neuts (auto) 10.9 H Absolute Nucleated RBC 0.000 Nucleated RBC % 0.0 Sodium 138 Potassium 3.6 Chloride 105 Carbon Dioxide 26 Anion Gap 7 BUN 14 Creatinine 0.87 Estim Creat Clear Calc 91 Estimated GFR > 60 Glucose 149 H POC Capillary Glucose 225 H Calcium 9.8 Magnesium 2.0 Total Bilirubin 0.7 AST 26 ALT 22 Alkaline Phosphatase 140 H Total Protein 6.5 Albumin 3.4 L Microbiology 11/02/24 20:39 Blood Blood Culture - Preliminary 11/02/24 20:38 Blood Blood Culture - Preliminary Patient Feedback: Patient satisfied with anesthetic care.
[2024-11-04] MEDS: INDAPAMIDE 1.25 MG TABLET PO (08:40)
[2024-11-04] MEDS: METOPROLOL TARTRATE 50 MG TAB 100 MG PO ×2 (08:40→20:36)
[2024-11-04] MEDS: lisinopriL 10 MG TABLET 30 MG PO (08:40)
[2024-11-04] MEDS: POTASSIUM CHLORIDE 20 MEQ ER TABLET 40 MEQ PO (08:41)
[2024-11-04] MEDS: amLODIPine BESYLATE 5 MG TABLET PO (08:42)
[2024-11-04] MEDS: ENOXAPARIN 40 MG/0.4 ML SYRINGE SUB-Q (08:42)
[2024-11-04] MEDS: SODIUM CHLORIDE 0.9% IV 1,000 ML 150 ML IV CONT ×2 (08:42→20:38)
[2024-11-04] MEDS: DOXYCYCLINE 100 MG/NS 100 ML 100 MG/100 ML BAG IVPB ×2 (09:19→22:20)
[2024-11-04] MEDS: ACETAMINOPHEN 325 MG TABLET 650 MG PO ×2 (09:24→20:37)
--- NOTE | 2024-11-04 10:26 | P.PNIM_ITS ---
Progress Note: A&P Assessment and Plan (1) Diabetes: Qualifiers: Diabetes mellitus type: type 2 Diabetes mellitus long term care pharmacist insulin use: without [facility] use Diabetes mellitus complication status: without comp lication Qualified Code(s): E11.9 - Type 2 diabetes mellitus without complications Code(s): E11.9 - Type 2 diabetes mellitus without complications Status: Chronic Assessment and Plan: Stable on current medications, will continue current treatment. (2) Morbid obesity with body mass index (BMI) of 45.0 to 49.9 in adult: Code(s): E66.01 - Morbid (severe) obesity due to excess calories; Z68.42 - Body mass index [BMI] 45.0-49.9, adult Status: Acute Assessment and Plan: Diet and exercise (3) Primary metaplastic carcinoma of breast: Code(s): C50.919 - Malignant neoplasm of unspecified site of unspecified female breast Status: Acute Assessment and Plan: Stable (4) Triple negative breast cancer: Code(s): C50.919 - Malignant neoplasm of unspecified site of unspecified female breast; Z17.421 - Hormone receptor negative with human epidermal growth factor receptor 2 negative status Status: Acute Assessment and Plan: Stable (5) S/P bilateral mastectomy: Code(s): Z90.13 - Acquired absence of bilateral breasts and nipples Status: Acute Assessment and Plan: Monitor infection carefully, continue current treatment Plan Sepsis Resolving Patient had Tachycardia, tachypnea, Leukocytosis SOurce of infection is wound infection at both breast following mastectomy Blood cultures pendign Conitneu ZOsyn, Vanc and Doxycycline Monitor Bilateral breast wound infection post mastectomy bilaterally continue above care Plastic surgery consulted Hypertensive urgency Contineu Lisinopril, add amlodipine DVT prophylaxis on Sq Lvoenox Full code SDM: Jm Fontana Subjective Date/time seen: 11/04/24 10:26 Interval history: Patient was seen during the morning rounds today No sob or chest pain No nausea or vomiting. Review of Systems Review of Systems: ALl other systems were reviewed and negative except as noted in the HPI above Exam Narrative: General: alert and comfortable Eyes: EOMI, PERRLA ENNT External ears normal, Neck is supple, no masses, Respiratory systems: Clear to auscultation Cardiovascular S1, S2, normal rhythm, no murmur, rub, or gallop; no thrill or palpable murmurs on palpation. Gastrointestinal: soft, non-tender, and non-distended abdomen with no masses; BS present Skin: bilateral breast surgical site showed purulent drainage and necrotic skin region on the left Musculoskeletal: no abnormality and no tenderness, normal ROM Neurologic: Alert and oriented x3, non focal Mental Status Exam: normal affect Objective Data Vital Signs Vital Signs: Vital Signs - 24 hr 11/03/24 14:30 11/03/24 15:47 11/03/24 16:00 Temperature 37.3 C 36.7 C Pulse Rate 65 66 63 Respiratory Rate 14 14 16 Blood Pressure 168/72 H 156/77 H 166/78 H Pulse Oximetry 98 100 100 Oxygen Delivery Room Air Simple Face Mask Room Air Oxygen Flow Rate 10 11/03/24 16:15 11/03/24 16:30 11/03/24 16:45 Temperature Pulse Rate 63 62 65 Respiratory Rate 18 20 20 Blood Pressure 168/76 H 170/79 H 176/80 H Pulse Oximetry 100 100 20 L Oxygen Delivery Simple Face Mask Room Air Room Air Oxygen Flow Rate 10 11/03/24 17:00 11/03/24 17:15 11/03/24 17:30 Temperature Pulse Rate 64 64 65 Respiratory Rate 18 18 18 Blood Pressure 174/80 H 176/75 H Pulse Oximetry 92 92 92 Oxygen Delivery Room Air Room Air Room Air Oxygen Flow Rate 11/03/24 20:00 11/03/24 20:48 11/03/24 21:32 Temperature 36.6 C Pulse Rate 71 65 71 Respiratory Rate 16 16 Blood Pressure 135/68 Pulse Oximetry 94 94 Oxygen Delivery Room Air Oxygen Flow Rate 11/04/24 06:00 Temperature 36.2 C L Pulse Rate 56 L Respiratory Rate 12 Blood Pressure 170/85 H Pulse Oximetry 97 Oxygen Delivery Oxygen Flow Rate Intake/Output Intake/Output: Intake & Output 11/01/24 11/02/24 11/03/24 11/04/24 23:59 23:59 23:59 23:59 Intake Total 1300 2251 2100 Output Total 7651 52 Balance 3688 -032 0254 Meds/Results Medications: Active Medications Generic Name Dose Route Start Last Admin Trade Name Freq PRN Reason Stop Dose Admin Acetaminophen 650 mg 11/02/24 23:11 11/04/24 09:24 Acetaminophen 325 Mg Tablet PO 650 mg Q4H PRN Administration Mild Pain (1-3) or Fever Albuterol 2 puff 11/03/24 02:28 Albuterol Sulfate (*Sp) Aerosol 1 Puff INHALATION Q6HRT PRN shortness of breath or wheezing Amlodipine Besylate 5 mg 11/03/24 13:10 11/04/24 08:42 Amlodipine Besylate 5 Mg Tablet PO 5 mg DAILY STEPHANIE Administration Enoxaparin Sodium 40 mg 11/03/24 13:10 11/04/24 08:42 Enoxaparin 40 Mg/0.4 Ml Syringe SUB-Q 40 mg DAILY STEPHANIE Administration Piperacillin/Tazobactam/Dextrose 3.375 gm in 50 mls @ 100 mls/hr 11/03/24 03:00 11/04/24 08:41 Zosyn 3.375 Gm/Ns 50 Ml IVPB 100 mls/hr Q6H STEPHANIE Administration Vancomycin HCl 1,500 mg in 500 mls @ 250 mls/hr 11/03/24 10:00 11/04/24 01:12 Vancomycin 1,500 Mg/Ns 500 Ml IVPB Infused Q12H STEPHANIE Infusion Sodium Chloride 1,000 mls @ 150 mls/hr 11/02/24 23:15 11/04/24 09:19 Normal Saline Iv IV CONT Not Given .Q6H40M STEPHANIE Doxycycline Hyclate 100 mg in 100 mls @ 100 mls/hr 11/03/24 09:00 11/04/24 09:19 Vibramycin 100 Mg/Ns 100 Ml IVPB 100 mls/hr Q12HR STEPHANIE Administration Indapamide 1.25 mg 11/03/24 09:00 11/04/24 08:40 Indapamide 1.25 Mg Tablet PO 1.25 mg DAILY STEPHANIE Administration Lisinopril 30 mg 11/03/24 09:00 11/04/24 08:40 Lisinopril 10 Mg Tablet PO 30 mg DAILY STEPHANIE Administration Metoprolol Tartrate 100 mg 11/03/24 02:30 11/04/24 08:40 Metoprolol Tartrate 50 Mg Tab PO 100 mg Q12HR STEPHANIE Administration Pantoprazole Sodium 40 mg 11/03/24 21:00 11/03/24 20:48 Pantoprazole 40 Mg Tablet PO 40 mg HS STEPHANIE Administration Perflutren Lipid Microsphere 0 ml 11/03/24 11:50 Perflutren Lipid Microspheres 1.5 Ml Vial Diluted To 10 Ml Total Volume IV PUSH 11/06/24 11:50 ONCE PRN adequate visualization Protocol Potassium Chloride 40 meq 11/03/24 09:00 11/04/24 08:41 Potassium Chloride 20 Meq Er Tablet PO 40 meq DAILY STEPHANIE Administration Radiology Results: ITS Impressions Chest X-Ray 11/02/24 21:05 IMPRESSION: Bibasilar atelectasis, without focal infiltrate or effusion. Labs Labs: Laboratory Results - last 24 hr 11/03/24 11/03/24 11/03/24 11:50 14:46 17:24 WBC RBC Hgb Hct MCV MCH MCHC RDW Plt Count MPV Immature Gran % (Auto) Neut % (Auto) Lymph % (Auto) [place] % (Auto) Eos % (Auto) Baso % (Auto) Lymph # (Auto) [place] # (Auto) Eos # (Auto) Baso # (Auto) Abs Immat Gran (auto) Absolute Neuts (auto) Absolute Nucleated RBC Nucleated RBC % Sodium Potassium Chloride Carbon Dioxide Anion Gap BUN Creatinine Estim Creat Clear Calc Estimated GFR Glucose POC Capillary Glucose 133 H 121 H 139 H Calcium Magnesium Total Bilirubin AST ALT Alkaline Phosphatase Total Protein Albumin 11/03/24 11/04/24 20:31 05:49 WBC 12.8 H RBC 3.55 L Hgb 9.7 L Hct 30.5 L MCV 85.9 MCH 27.3 MCHC 31.8 L RDW 13.9 Plt Count 234 MPV 9.6 Immature Gran % (Auto) 0.9 H Neut % (Auto) 85.3 H Lymph % (Auto) 9.7 L [place] % (Auto) 3.9 Eos % (Auto) 0.0 Baso % (Auto) 0.2 Lymph # (Auto) 1.24 [place] # (Auto) 0.5 Eos # (Auto) 0.0 Baso # (Auto) 0.0 Abs Immat Gran (auto) 0.11 H Absolute Neuts (auto) 10.9 H Absolute Nucleated RBC 0.000 Nucleated RBC % 0.0 Sodium 138 Potassium 3.6 Chloride 105 Carbon Dioxide 26 Anion Gap 7 BUN 14 Creatinine 0.87 Estim Creat Clear Calc 91 Estimated GFR > 60 Glucose 149 H POC Capillary Glucose 225 H Calcium 9.8 Magnesium 2.0 Total Bilirubin 0.7 AST 26 ALT 22 Alkaline Phosphatase 140 H Total Protein 6.5 Albumin 3.4 L
--- NOTE | 2024-11-04 10:52 | P.CDI_ITS ---
<Statement entered by Diandra Gonzalez MD - 11/07/24 16:33> debridement was excisional and clarification should not be required based upon the operative note. CDI Query Clarification Request On??11/03? the patient had a debridement. ?Was the debridement Excisional or Non- Excisional? Description of Procedure Patient seen in the preoperative holding area where the breasts were marked and the consent form was signed. Patient was taken back to the operating room placed on the table in the supine position. Time-out was performed with Anesthesia, surgeon, and staff agreeing on patient's name, site, and surgery to be performed. SCDs were placed on the lower extremities and inflated. After general anesthesia was administered the breasts were prepped and draped in usual sterile fashion. I turned my attention to the left breast where I used a 15 blade scalpel to did sharply debride the eschar and nonviable subcutaneous tissue and areas of fat necrosis around the T-junction going down to her buried dermal pedicle from her reconstruction surgery. There was no clear evidence of undermining from this wound measuring 4 x 3 cm. After this was debrided down to healthy bleeding tissue I irrigated it 1st with peroxide, then Betadine, then vancomycin irrigation. I changed gloves and instruments and then using Bovie cautery made an incision in this pedicle to allow insertion of a clean Yankauer suction after taking a culture swab of the cavity fluid and then i aspirated approximately 150 cc of tea colored seroma fluid. The left breast tissue oyster floater pocket was irrigated with a mixture of peroxide, Betadine, antibiotic irrigation followed normal saline until irrigation ran clear. A 10 [place] KYLE drain was placed in the pocket of the tissue oyster floater coming out the lower lateral chest/abdomen and hooked to bulb suction. I repaired the incision in the buried dermal pedicle with 3-0 Vicryl suture. In order to achieve closure I elevated the lateral skin flap undermining it in the subcutaneous plane to allow for it to advance and tash se the defect. This was secured with 3-0 Vicryl suture for dermis and 2-0 nylon for skin. Next I took my attention to the right breast where a similar procedure was performed. Gloves were changed as were fresh instruments. Using a 15 blade scalpel I sharply debrided and excised the nonviable eschar subcutaneous tissue and fat necrosis around the T-junction down to the buried dermal pedicle. The resulting defect measured 4 x 4 cm. There appeared to be a part of questionable viability to this pedicle and there was tracking going to the right lateral breast pocket as well as a separate tract going superomedially. Culture was taken of the fluid which was dark brown but clear in color without clear purulence or malodor. I proceeded with copious irrigation of this right breast pocket and tracking cavity with peroxide followed by Betadine followed by antibiotic irrigation and then with normal saline until the fluid ran clear again using a new Yankauer suction when doing so. I placed a neither 10 [place] KYLE drain coming out the superior abdomen laterally going into this pocket. This drain was placed to bulb suction. Again in order to achieve closure I used Bovie cautery to elevate the superolateral skin flap to allow for rotation and advancement medially and inferiorly to achieve primary closure. Excess skin was excised for dog-ear management with 15 blade scalpel and Bovie as needed. The flap was secured with 3-0 Vicryl suture for dermis and 2-0 nylon for skin.
[2024-11-04 11:29] LABS: Vancomycin Trough 10.8 ug/mL (10.0-20.0)
[2024-11-04] MEDS: VANCOMYCIN 1,750 MG/NS 500 ML 1,750 MG/500 ML BAG 250 MG IVPB (12:25)
[2024-11-04 13:13] LABS: Glucose Point of Care 137 mg/dl (65-105)
[2024-11-04 14:00] VITALS: BP 161/87; PULSE 60; RESP 16; TEMP 36.2; O2SAT 97
--- NOTE | 2024-11-04 16:15 | PCCARD ---
Limited views, Unable to get adequate images due to open wound surgery on left breast.
[2024-11-04 16:55] LABS: Glucose Point of Care 135 mg/dl (65-105)
[2024-11-04 20:00] VITALS: PULSE 60; RESP 20; O2SAT 97
[2024-11-04 20:22] VITALS: BP 172/70; PULSE 64; RESP 20; TEMP 36.9; O2SAT 97
[2024-11-04 20:36] VITALS: PULSE 60
[2024-11-04] MEDS: PANTOPRAZOLE 40 MG TABLET PO (20:36)
[2024-11-04 20:39] LABS: Glucose Point of Care 183 mg/dl (65-105)
[2024-11-05] MEDS: VANCOMYCIN 1,750 MG/NS 500 ML 1,750 MG/500 ML BAG 250 MG IVPB ×2 (00:22→12:24)
[2024-11-05] MEDS: PIPERACILLN/TAZ 3.375GM/NS50ML 3.375 GM/50 ML BAG IVPB ×4 (03:14→21:00)
[2024-11-05 04:56] VITALS: BP 164/80; PULSE 60; RESP 20; TEMP 36.5; O2SAT 98
[2024-11-05 06:53] LABS: Hematocrit 28.6 % (37.0-47.0); Hemoglobin 8.9 g/dL (12.0-15.0); Mean Corpuscular HGB Conc 31.1 g/dl (32-36); Mean Corpuscular Hemoglobin 26.8 pg (26-34); Mean Corpuscular Volume 86.1 fl (80-100); Mean Platelet Volume 9.7 fl (7.4-10.4); Platelet Count Result 232 k/mm3 (150-375); Red Blood Count 3.32 M/mm3 (4.2-5.4); Red Cell Distribution Width 14.3 % (11.5-14.5); White Blood Count 8.1 K/mm3 (4.5-10.0)
[2024-11-05] MEDS: SODIUM CHLORIDE 0.9% IV 1,000 ML 150 ML IV CONT ×2 (07:03→18:39)
[2024-11-05] MEDS: CENTRAL LINE FLUSH 10 ML IV PUSH ×2 (07:04→15:13)
[2024-11-05 07:05] LABS: Estimated CRCL calculation 96 ml/min; Estimated Glomerular Filt Rate > 60
[2024-11-05 08:06] LABS: Glucose Point of Care 106 mg/dl (65-105)
--- NOTE | 2024-11-05 08:38 | P.PNIM_ITS ---
Progress Note: A&P Assessment and Plan (1) S/P bilateral mastectomy: Code(s): Z90.13 - Acquired absence of bilateral breasts and nipples Status: Acute Assessment and Plan: Monitor infection carefully, continue current treatment Wait for culture results. (2) Diabetes: Qualifiers: Diabetes mellitus type: type 2 Diabetes mellitus custodial insulin use: without custodial use Diabetes mellitus complication status: without complication Qualified Code(s): E11.9 - Type 2 diabetes mellitus without complications Code(s): E11.9 - Type 2 diabetes mellitus without complications Status: Chronic Assessment and Plan: Stable on current medications, will continue current treatment. (3) Morbid obesity with body mass index (BMI) of 45.0 to 49.9 in adult: Code(s): E66.01 - Morbid (severe) obesity due to excess calories; Z68.42 - Body mass index [BMI] 45.0-49.9, adult Status: Acute Assessment and Plan: Diet and exercise (4) Primary metaplastic carcinoma of breast: Code(s): C50.919 - Malignant neoplasm of unspecified site of unspecified female breast Status: Acute Assessment and Plan: Stable (5) Triple negative breast cancer: Code(s): C50.919 - Malignant neoplasm of unspecified site of unspecified female breast; Z17.421 - Hormone receptor negative with human epidermal growth factor receptor 2 negative status Status: Acute Assessment and Plan: Stable Plan Sepsis Resolving Patient had Tachycardia, tachypnea, Leukocytosis SOurce of infection is wound infection at both breast following mastectomy Blood cultures pendign Conitneu ZOsyn, Vanc and Doxycycline Monitor Bilateral breast wound infection post mastectomy bilaterally continue above care Plastic surgery consulted Hypertensive urgency Contineu Lisinopril, add amlodipine DVT prophylaxis on Sq Lvoenox Full code SDM: Jm Fontana Subjective Date/time seen: 11/05/24 08:38 Interval history: Patient was seen during the morning rounds today No new overnight complaints Pain controlled No sob or chest pain No nausea or vomiting. Review of Systems Review of Systems: ALl other systems were reviewed and negative except as noted in the HPI above Exam Narrative: General: alert and comfortable Eyes: EOMI, PERRLA ENNT External ears normal, Neck is supple, no masses, Chest:s/p bilateral breast surgery Respiratory systems: Clear to auscultation Cardiovascular S1, S2, normal rhythm, no murmur, rub, or gallop; no thrill or palpable murmurs on palpation. Gastrointestinal: soft, non-tender, and non-distended abdomen with no masses; BS present Skin: bilateral breast surgical site showed purulent drainage and necrotic skin region on the left Musculoskeletal: no abnormality and no tenderness, normal ROM Neurologic: Alert and oriented x3, non focal Mental Status Exam: normal affect Objective Data Vital Signs Vital Signs: Vital Signs - 24 hr 11/04/24 14:00 11/04/24 20:00 11/04/24 20:22 Temperature 36.2 C L 36.9 C Pulse Rate 60 60 64 Respiratory Rate 16 20 20 Blood Pressure 161/87 H 172/70 H Pulse Oximetry 97 97 97 Oxygen Delivery Room Air 11/04/24 20:36 11/05/24 04:56 Temperature 36.5 C Pulse Rate 60 60 Respiratory Rate 20 Blood Pressure 164/80 H Pulse Oximetry 98 Oxygen Delivery Intake/Output Intake/Output: Intake & Output 11/02/24 11/03/24 11/04/24 11/05/24 23:59 23:59 23:59 23:59 Intake Total 1300 2258 5707 2650 Output Total 2785 82 35 Balance 9517 -220 6844 2615 Meds/Results Medications: Active Medications Generic Name Dose Route Start Last Admin Trade Name Freq PRN Reason Stop Dose Admin Acetaminophen 650 mg 11/02/24 23:11 11/04/24 20:37 Acetaminophen 325 Mg Tablet PO 650 mg Q4H PRN Administration Mild Pain (1-3) or Fever Albuterol 2 puff 11/03/24 02:28 Albuterol Sulfate (*Sp) Aerosol 1 Puff INHALATION Q6HRT PRN shortness of breath or wheezing Amlodipine Besylate 5 mg 11/03/24 13:10 11/04/24 08:42 Amlodipine Besylate 5 Mg Tablet PO 5 mg DAILY STEPHANIE Administration Enoxaparin Sodium 40 mg 11/03/24 13:10 11/04/24 08:42 Enoxaparin 40 Mg/0.4 Ml Syringe SUB-Q 40 mg DAILY STEPHANIE Administration Heparin Sodium (Beef Lung) 50 units 11/05/24 09:00 Heparin Flush 50 Units/5 Ml Syringe IV PUSH QAM STEPHANIE Heparin Sodium (Beef Lung) 50 units 11/04/24 15:39 Heparin Flush 50 Units/5 Ml Syringe IV PUSH PRN PRN after intermittent infusion Heparin Sodium (Beef Lung) 50 units 11/04/24 15:39 Heparin Flush 50 Units/5 Ml Syringe IV PUSH PRN PRN after blood draws Heparin Sodium (Porcine) 500 units 11/04/24 15:39 Heparin Sodium Lock Flush 500 Units/5 Ml Syringe IV PUSH PRN PRN see comments below Piperacillin/Tazobactam/Dextrose 3.375 gm in 50 mls @ 100 mls/hr 11/03/24 03:00 11/05/24 03:44 Zosyn 3.375 Gm/Ns 50 Ml IVPB Infused Q6H STEPHANIE Infusion Sodium Chloride 1,000 mls @ 150 mls/hr 11/02/24 23:15 11/05/24 07:03 Normal Saline Iv IV CONT 150 mls/hr .Q6H40M STEPHANIE Administration Doxycycline Hyclate 100 mg in 100 mls @ 100 mls/hr 11/03/24 09:00 11/04/24 23:20 Vibramycin 100 Mg/Ns 100 Ml IVPB Infused Q12HR STEPHANIE Infusion Vancomycin HCl 1,750 mg in 500 mls @ 250 mls/hr 11/04/24 12:00 11/05/24 02:22 Vancomycin 1,750 Mg/Ns 500 Ml IVPB Infused Q12H STEPHANIE Infusion Indapamide 1.25 mg 11/03/24 09:00 11/04/24 08:40 Indapamide 1.25 Mg Tablet PO 1.25 mg DAILY STEPHANIE Administration Lisinopril 30 mg 11/03/24 09:00 11/04/24 08:40 Lisinopril 10 Mg Tablet PO 30 mg DAILY STEPHANIE Administration Metoprolol Tartrate 100 mg 11/03/24 02:30 11/04/24 20:36 Metoprolol Tartrate 50 Mg Tab PO 100 mg Q12HR STEPHANIE Administration Pantoprazole Sodium 40 mg 11/03/24 21:00 11/04/24 20:36 Pantoprazole 40 Mg Tablet PO 40 mg HS STEPHANIE Administration Perflutren Lipid Microsphere 0 ml 11/03/24 11:50 Perflutren Lipid Microspheres 1.5 Ml Vial Diluted To 10 Ml Total Volume IV PUSH 11/06/24 11:50 ONCE PRN adequate visualization Protocol Potassium Chloride 40 meq 11/03/24 09:00 11/04/24 08:41 Potassium Chloride 20 Meq Er Tablet PO 40 meq DAILY STEPHANIE Administration Sodium Chloride 10 ml 11/04/24 22:00 11/05/24 07:04 Central Line Flush IV PUSH 10 ml Q8HR STEPHANIE Administration Radiology Results: ITS Impressions Chest X-Ray 11/02/24 21:05 IMPRESSION: Bibasilar atelectasis, without focal infiltrate or effusion. Labs Labs: Laboratory Results - last 24 hr 11/04/24 11/04/24 11/04/24 10:50 13:10 16:51 WBC RBC Hgb Hct MCV MCH MCHC RDW Plt Count MPV Creatinine Estim Creat Clear Calc Estimated GFR POC Capillary Glucose 137 H 135 H Vancomycin Trough 10.8 11/04/24 11/05/24 11/05/24 20:25 06:19 07:56 WBC 8.1 RBC 3.32 L Hgb 8.9 L Hct 28.6 L MCV 86.1 MCH 26.8 MCHC 31.1 L RDW 14.3 Plt Count 232 MPV 9.7 Creatinine 0.82 Estim Creat Clear Calc 96 Estimated GFR > 60 POC Capillary Glucose 183 H 106 H Vancomycin Trough
[2024-11-05] MEDS: lisinopriL 10 MG TABLET 30 MG PO (08:41)
[2024-11-05] MEDS: ACETAMINOPHEN 325 MG TABLET 650 MG PO ×4 (08:41→21:23)
[2024-11-05] MEDS: INDAPAMIDE 1.25 MG TABLET PO (08:41)
[2024-11-05] MEDS: POTASSIUM CHLORIDE 20 MEQ ER TABLET 40 MEQ PO (08:43)
[2024-11-05 08:44] VITALS: PULSE 60
[2024-11-05] MEDS: amLODIPine BESYLATE 5 MG TABLET PO (08:44)
[2024-11-05] MEDS: METOPROLOL TARTRATE 50 MG TAB 100 MG PO ×2 (08:44→21:01)
[2024-11-05] MEDS: ENOXAPARIN 40 MG/0.4 ML SYRINGE SUB-Q (08:45)
[2024-11-05] MEDS: DOXYCYCLINE 100 MG/NS 100 ML 100 MG/100 ML BAG IVPB ×2 (09:32→22:35)
[2024-11-05] MEDS: valACYclovir HCL 500 MG TABLET 2000 MG PO ×2 (10:08→21:01)
[2024-11-05] MEDS: DOCOSANOL 10% CREAM 2 GM 1 APPLIC TOPICAL ×5 (10:08→21:02)
[2024-11-05] MEDS: MULTIVIT W/ IRON, MINERALS 15 ML LIQUID (*BKC) PO (10:09)
[2024-11-05 14:00] VITALS: BP 172/86; PULSE 63; RESP 18; TEMP 36; O2SAT 98
[2024-11-05 20:00] VITALS: PULSE 63; RESP 20; O2SAT 100
[2024-11-05 20:52] VITALS: BP 175/87; PULSE 63; RESP 20; TEMP 36.3; O2SAT 100
[2024-11-05 21:01] VITALS: PULSE 63
[2024-11-05] MEDS: PANTOPRAZOLE 40 MG TABLET PO (21:01)
[2024-11-05 23:37] LABS: Vancomycin Trough 14.4 ug/mL (10.0-20.0)
[2024-11-06] MEDS: VANCOMYCIN 2,000 MG/NS 500 ML 2,000 MG/500 ML BAG 250 MG IVPB ×3 (00:24→23:27)
[2024-11-06] MEDS: PIPERACILLN/TAZ 3.375GM/NS50ML 3.375 GM/50 ML BAG IVPB ×2 (03:48→09:05)
[2024-11-06 04:28] VITALS: BP 182/88; PULSE 61; RESP 16; TEMP 36.3; O2SAT 98
[2024-11-06] MEDS: SODIUM CHLORIDE 0.9% IV 1,000 ML 150 ML IV CONT ×4 (05:40→23:25)
[2024-11-06 06:14] LABS: Alanine Aminotransferase 30 U/L (6-35); Albumin Level 3.6 g/dL (3.5-5.1); Alkaline Phosphatase 154 U/L (38-126); Anion Gap 6 mmol/L (4-12); Aspartate Amino Transferase 29 U/L (14-36); Bilirubin,Total 0.3 mg/dL (0.2-1.3); Blood Urea Nitrogen 8 mg/dL (7-17); Calcium 10.1 mg/dL (8.4-10.2); Carbon Dioxide 29 mmol/L (22-30); Chloride 104 mmol/L (98-107); Estimated CRCL calculation 96 ml/min; Estimated Glomerular Filt Rate > 60; Glucose 104 mg/dL (65-110); Potassium 3.4 mmol/L (3.4-5.0); Sodium 139 mmol/L (137-145); Total Protein 6.4 g/dL (6.3-8.2)
[2024-11-06 06:51] LABS: Basophils Percent Auto 0.6 % (0.2-1.2); Eosinophils Absolute Auto 0.3 K/mm3 (0-0.3); Eosinophils Percent Auto 5.2 % (0-4.4); Hemoglobin 10.5 g/dL (12.0-15.0); Immature Granulocyte Absolute 0.04 K/mm3 (0.00-0.031); Immature Granulocyte Percent A 0.6 % (0-0.5); Lymphocytes Percent Auto 35.3 % (18.3-44.2); Mean Corpuscular HGB Conc 30.9 g/dl (32-36); Mean Corpuscular Hemoglobin 26.9 pg (26-34); Mean Platelet Volume 9.7 fl (7.4-10.4); Monocytes Absolute Auto 0.5 K/mm3 (0.1-0.6); Monocytes Percent Auto 7.2 % (2.6-8.5); Neutrophils Absolute Auto 3.3 K/mm3 (1.3-6.7); Neutrophils Percent Auto 51.1 % (45.5-73.1); Platelet Count Result 287 k/mm3 (150-375); Red Blood Count 3.91 M/mm3 (4.2-5.4); Red Cell Distribution Width 14.2 % (11.5-14.5); White Blood Count 6.5 K/mm3 (4.5-10.0)
[2024-11-06] MEDS: lisinopriL 10 MG TABLET 30 MG PO (09:00)
[2024-11-06] MEDS: METOPROLOL TARTRATE 50 MG TAB 100 MG PO ×2 (09:00→21:20)
[2024-11-06] MEDS: POTASSIUM CHLORIDE 20 MEQ ER TABLET 40 MEQ PO (09:00)
[2024-11-06] MEDS: ENOXAPARIN 40 MG/0.4 ML SYRINGE SUB-Q (09:01)
[2024-11-06] MEDS: INDAPAMIDE 1.25 MG TABLET PO (09:01)
[2024-11-06] MEDS: MULTIVIT W/ IRON, MINERALS 15 ML LIQUID (*BKC) PO (09:01)
[2024-11-06] MEDS: amLODIPine BESYLATE 5 MG TABLET PO (09:02)
[2024-11-06] MEDS: DOCOSANOL 10% CREAM 2 GM 1 APPLIC TOPICAL ×5 (09:03→21:18)
[2024-11-06] MEDS: ACETAMINOPHEN 325 MG TABLET 650 MG PO ×2 (09:14→21:18)
[2024-11-06] MEDS: DOXYCYCLINE 100 MG/NS 100 ML 100 MG/100 ML BAG IVPB (11:19)
[2024-11-06 14:00] VITALS: BP 170/81; PULSE 65; RESP 14; TEMP 36.1; O2SAT 97
--- NOTE | 2024-11-06 15:27 | PM.IMPN ---
Progress Note: A&P Assessment and Plan (1) S/P bilateral mastectomy: Code(s): Z90.13 - Acquired absence of bilateral breasts and nipples Status: Acute Assessment and Plan: Monitor infection carefully, continue current treatment Reviewed culture growing E coli Started Augmentin Order nasal MRSA (2) Diabetes: Qualifiers: Diabetes mellitus type: type 2 Diabetes mellitus technician terminal and repeater insulin use: without group home use Diabetes mellitus complication status: without complication Qualified Code(s): E11.9 - Type 2 diabetes mellitus without complications Code(s): E11.9 - Type 2 diabetes mellitus without complications Status: Chronic Assessment and Plan: Stable on current medications, will continue current treatment. (3) Morbid obesity with body mass index (BMI) of 45.0 to 49.9 in adult: Code(s): E66.01 - Morbid (severe) obesity due to excess calories; Z68.42 - Body mass index [BMI] 45.0-49.9, adult Status: Acute Assessment and Plan: Diet and exercise (4) Primary metaplastic carcinoma of breast: Code(s): C50.919 - Malignant neoplasm of unspecified site of unspecified female breast Status: Acute Assessment and Plan: Stable (5) Triple negative breast cancer: Code(s): C50.919 - Malignant neoplasm of unspecified site of unspecified female breast; Z17.421 - Hormone receptor negative with human epidermal growth factor receptor 2 negative status Status: Acute Assessment and Plan: Stable Plan Sepsis Resolving Patient had Tachycardia, tachypnea, Leukocytosis Source of infection is wound infection at both breast following mastectomy Blood cultures no growth Discontinue ZOsyn, Vanc and Doxycycline Reviewed wound culture Pansensitive and started Augmentin Monitor Bilateral breast wound infection post mastectomy bilaterally continue above care Plastic surgery consulted Hypertensive urgency Continue Lisinopril, add amlodipine DVT prophylaxis on Sq Lovenox Full code SDM: Jm Fontana Subjective Date/time seen: 11/06/24 15:27 Interval history: Interval history: Patient denies any significant medical history until she was diagnosed with breast cancer on September 16, 2024. Patient underwent double mastectomy with and . As per the patient there was debate to wait for chemotherapy or undergo reconstruction. By the time patient developed a left-sided and later right-sided necrotic lesion. Patient developed fever and chills and was admitted to [facility]. Wound culture pansensitive. Will start Augmentin. Review of Systems Review of Systems: ALl other systems were reviewed and negative except as noted in the HPI above Exam Narrative: General: alert and comfortable Eyes: EOMI, PERRLA ENNT External ears normal, Neck is supple, no masses, Chest:s/p bilateral breast surgery Respiratory systems: Clear to auscultation Cardiovascular S1, S2, normal rhythm, no murmur, rub, or gallop; no thrill or palpable murmurs on palpation. Gastrointestinal: soft, non-tender, and non-distended abdomen with no masses; BS present Skin: bilateral breast surgical site showed purulent drainage and necrotic skin region on the left Musculoskeletal: no abnormality and no tenderness, normal ROM Neurologic: Alert and oriented x3, non focal Mental Status Exam: normal affect Objective Data Vital Signs Vital Signs: Vital Signs - 24 hr 11/05/24 20:00 11/05/24 20:52 11/05/24 21:01 Temperature 97.3 F L Pulse Rate 63 63 63 Respiratory Rate 20 20 Blood Pressure 175/87 H Pulse Oximetry 100 100 Oxygen Delivery Room Air 11/06/24 04:28 11/06/24 09:00 Temperature 97.3 F L Pulse Rate 61 Respiratory Rate 16 Blood Pressure 182/88 H Pulse Oximetry 98 Oxygen Delivery Room Air Intake/Output Intake/Output: Intake & Output 11/03/24 11/04/24 11/05/24 11/06/24 23:59 23:59 23:59 23:59 Intake Total 2251 5707 4560 3377.5 Output Total 2785 82 80 60 Balance -534 5625 4480 3317.5 Meds/Results Medications: Active Medications Generic Name Dose Route Start Last Admin Trade Name Freq PRN Reason Stop Dose Admin Acetaminophen 650 mg 11/02/24 23:11 11/06/24 09:14 Acetaminophen 325 Mg Tablet PO 650 mg Q4H PRN Administration Mild Pain (1-3) or Fever Albuterol 2 puff 11/03/24 02:28 Albuterol Sulfate (*Sp) Aerosol 1 Puff INHALATION Q6HRT PRN shortness of breath or wheezing Amlodipine Besylate 5 mg 11/03/24 13:10 11/06/24 09:02 Amlodipine Besylate 5 Mg Tablet PO 5 mg DAILY STEPHANIE Administration Docosanol 1 applic 11/05/24 10:00 11/06/24 11:18 Docosanol 10% Cream 2 Gm TOPICAL 1 applic 5 TIMES DAILY STEPHANIE Administration Enoxaparin Sodium 40 mg 11/03/24 13:10 11/06/24 09:01 Enoxaparin 40 Mg/0.4 Ml Syringe SUB-Q 40 mg DAILY STEPHANIE Administration Heparin Sodium (Beef Lung) 50 units 11/05/24 09:00 11/06/24 09:01 Heparin Flush 50 Units/5 Ml Syringe IV PUSH Not Given QAM STEPHANIE Heparin Sodium (Beef Lung) 50 units 11/04/24 15:39 Heparin Flush 50 Units/5 Ml Syringe IV PUSH PRN PRN after intermittent infusion Heparin Sodium (Beef Lung) 50 units 11/04/24 15:39 Heparin Flush 50 Units/5 Ml Syringe IV PUSH PRN PRN after blood draws Heparin Sodium (Porcine) 500 units 11/04/24 15:39 Heparin Sodium Lock Flush 500 Units/5 Ml Syringe IV PUSH PRN PRN see comments below Piperacillin/Tazobactam/Dextrose 3.375 gm in 50 mls @ 100 mls/hr 11/03/24 03:00 11/06/24 09:05 Zosyn 3.375 Gm/Ns 50 Ml IVPB 100 mls/hr Q6H STEPHANIE Administration Sodium Chloride 1,000 mls @ 150 mls/hr 11/02/24 23:15 11/06/24 09:15 Normal Saline Iv IV CONT 150 mls/hr .Q6H40M STEPHANIE Administration Doxycycline Hyclate 100 mg in 100 mls @ 100 mls/hr 11/03/24 09:00 11/06/24 11:19 Vibramycin 100 Mg/Ns 100 Ml IVPB 100 mls/hr Q12HR STEPHANIE Administration Vancomycin HCl 2,000 mg in 500 mls @ 250 mls/hr 11/06/24 00:00 11/06/24 12:56 Vancomycin 2,000 Mg/Ns 500 Ml IVPB 250 mls/hr Q12H STEPHANIE Administration Indapamide 1.25 mg 11/03/24 09:00 11/06/24 09:01 Indapamide 1.25 Mg Tablet PO 1.25 mg DAILY STEPHANIE Administration Lisinopril 30 mg 11/03/24 09:00 11/06/24 09:00 Lisinopril 10 Mg Tablet PO 30 mg DAILY STEPHANIE Administration Metoprolol Tartrate 100 mg 11/03/24 02:30 11/06/24 09:00 Metoprolol Tartrate 50 Mg Tab PO 100 mg Q12HR STEPHANIE Administration Multivitamins/Minerals 15 ml 11/05/24 09:00 11/06/24 09:01 Multivit W/ Iron, Minerals 15 Ml Liquid (*Bkc) PO 15 ml DAILY STEPHANIE Administration Pantoprazole Sodium 40 mg 11/03/24 21:00 11/05/24 21:01 Pantoprazole 40 Mg Tablet PO 40 mg HS STEPHANIE Administration Potassium Chloride 40 meq 11/03/24 09:00 11/06/24 09:00 Potassium Chloride 20 Meq Er Tablet PO 40 meq DAILY STEPHANIE Administration Sodium Chloride 10 ml 11/04/24 22:00 11/06/24 05:43 Central Line Flush IV PUSH Not Given Q8HR FORMERLY [facility], [facility]–1983 Radiology Results: ITS Impressions Chest X-Ray 11/02/24 21:05 IMPRESSION: Bibasilar atelectasis, without focal infiltrate or effusion. Labs Labs: Laboratory Results - last 24 hr 11/05/24 11/06/24 11/06/24 23:15 05:46 06:40 WBC 6.5 RBC 3.91 L Hgb 10.5 L Hct 34.0 L MCV 87.0 MCH 26.9 MCHC 30.9 L RDW 14.2 Plt Count 287 MPV 9.7 Immature Gran % (Auto) 0.6 H Neut % (Auto) 51.1 Lymph % (Auto) 35.3 Bracken % (Auto) 7.2 Eos % (Auto) 5.2 H Baso % (Auto) 0.6 Lymph # (Auto) 2.30 Bracken # (Auto) 0.5 Eos # (Auto) 0.3 Baso # (Auto) 0.0 Abs Immat Gran (auto) 0.04 H Absolute Neuts (auto) 3.3 Absolute Nucleated RBC 0.000 Nucleated RBC % 0.0 Sodium 139 Potassium 3.4 Chloride 104 Carbon Dioxide 29 Anion Gap 6 BUN 8 D Creatinine 0.82 Estim Creat Clear Calc 96 Estimated GFR > 60 Glucose 104 Calcium 10.1 Total Bilirubin 0.3 AST 29 ALT 30 Alkaline Phosphatase 154 H Total Protein 6.4 Albumin 3.6 Vancomycin Trough 14.4 Hospitalist MIPS Advance Care Plan I have confirmed that the patient's Advanced Care Plan is present, code status is documented, or surrogate decision maker is listed in patient medical record.: Yes Medication Reconciliation I have utilized all available resources to obtain, update and review the patients current medications (includes all prescriptions, OTC, herbals, cannabis, and nutritional supplements).: Yes
[2024-11-06 20:08] VITALS: BP 163/80; PULSE 68; RESP 16; TEMP 36.2; O2SAT 97
[2024-11-06 21:12] LABS: MRSA (PCR) NOT DETECTED (NOT DETECTE)
[2024-11-06] MEDS: AMOXICILLIN/CLAVULANATE K 875-125 MG TAB 1 TABLET PO (21:20)
[2024-11-06] MEDS: PANTOPRAZOLE 40 MG TABLET PO (21:20)
[2024-11-07 05:09] VITALS: BP 168/74; PULSE 64; RESP 18; TEMP 36.3; O2SAT 96
[2024-11-07] MEDS: ACETAMINOPHEN 325 MG TABLET 650 MG PO ×2 (06:05→13:19)
[2024-11-07] MEDS: CENTRAL LINE FLUSH 10 ML IV PUSH ×2 (06:12→13:21)
[2024-11-07 06:26] LABS: Hematocrit 34.8 % (37.0-47.0); Hemoglobin 10.8 g/dL (12.0-15.0); Mean Corpuscular Hemoglobin 26.5 pg (26-34); Mean Corpuscular Volume 85.3 fl (80-100); Mean Platelet Volume 9.5 fl (7.4-10.4); Platelet Count Result 275 k/mm3 (150-375); Red Blood Count 4.08 M/mm3 (4.2-5.4); Red Cell Distribution Width 14.1 % (11.5-14.5); White Blood Count 7.1 K/mm3 (4.5-10.0)
[2024-11-07 06:54] LABS: Alanine Aminotransferase 28 U/L (6-35); Albumin Level 3.8 g/dL (3.5-5.1); Alkaline Phosphatase 149 U/L (38-126); Anion Gap 8 mmol/L (4-12); Aspartate Amino Transferase 26 U/L (14-36); Bilirubin,Total 0.4 mg/dL (0.2-1.3); Blood Urea Nitrogen 7 mg/dL (7-17); Calcium 10.7 mg/dL (8.4-10.2); Carbon Dioxide 31 mmol/L (22-30); Chloride 100 mmol/L (98-107); Estimated CRCL calculation 100 ml/min; Estimated Glomerular Filt Rate > 60; Glucose 105 mg/dL (65-110); Potassium 3.4 mmol/L (3.4-5.0); Sodium 139 mmol/L (137-145)
[2024-11-07] MEDS: AMOXICILLIN/CLAVULANATE K 875-125 MG TAB 1 TABLET PO (08:39)
[2024-11-07 08:40] VITALS: PULSE 63
[2024-11-07] MEDS: INDAPAMIDE 1.25 MG TABLET PO (08:40)
[2024-11-07] MEDS: METOPROLOL TARTRATE 50 MG TAB 100 MG PO (08:40)
[2024-11-07] MEDS: lisinopriL 10 MG TABLET 30 MG PO (08:41)
[2024-11-07] MEDS: POTASSIUM CHLORIDE 20 MEQ ER TABLET 40 MEQ PO (08:41)
[2024-11-07] MEDS: ENOXAPARIN 40 MG/0.4 ML SYRINGE SUB-Q (08:42)
[2024-11-07] MEDS: amLODIPine BESYLATE 10 MG TABLET PO (08:42)
[2024-11-07] MEDS: MULTIVIT W/ IRON, MINERALS 15 ML LIQUID (*BKC) PO (08:42)
[2024-11-07] MEDS: DOCOSANOL 10% CREAM 2 GM 1 APPLIC TOPICAL ×3 (08:45→16:02)
--- NOTE | 2024-11-07 09:41 | PM.PNGS ---
Progress Note: A&P Assessment and Plan (1) Acquired absence of breast: Qualifiers: Laterality: bilateral Qualified Code(s): Z90.13 - Acquired absence of bilateral breasts and nipples Code(s): Z90.10 - Acquired absence of unspecified breast and nipple Status: Acute Plan 63 y/o female h/o R breast cancer, s/p B morrissey TM and SLNBx with immediate prepec TE recon with ADM 10/12/24, complicated by bilateral seroma, admitted 11/03/24 with elevated WBC, started on vanc and zosyn. pt is POD4 s/p B washout 11/03/24, with improved WBC, tolerating transition to augmentin. L breast cultures negative, R breast with ecoli without other skin bobo. reviewed impression, expected healing expectations, and signs/symptoms of concern. discussed dressing/activity instructions in anticipation of discharge home. pt voiced understanding and agreement. Plan 1) continue drain care, strip and empty q12, bring drain log to office 2) continue augmentin per hospitalist 3) dressing changed today, to remain in place until seen in office, shower from waist down only 4) anticipate discharge, plas f/u in office next week Subjective Subjective Date/Time Seen: 11/07/24 09:41 Interval history: pt seen at bedside, no concerns overnight, tolerating transition to PO abx. denies pain, fever/chills, bleeding/redness, interval change in breast size, SOB, chest pain, BLE pain, N/V/D. tolerating PO diet, ambulating and voiding without issue, +BM. Exam Narrative: pt sitting comfortably at bedside, conversational. HENMT: Mouth: Yes moist mucous membranes Eyes: Other: sclera anicteric Neck: Neck: supple and no JVD Chest: Other: surg bra c/d/i, removed for exam. bilateral breast and NAC absent. inverted T incisions thin, flat, healing well, sutures in place mid IMF bilaterally. drains in place with minimal serous drainage without clots. mastectomy flaps wwp, no erythema/edema/ecchymosis. no seroma/hematoma/masses. TE in place bilaterally, symmetric medial border and IMF. right superior lateral breast healing superficial excoriation. Resp: Effort & Inspection: normal respiratory effort Extrem: Other: no bilateral calf tenderness Objective Data Vital Signs Vital Signs: Vital Signs - 24 hr 11/06/24 14:00 11/06/24 20:00 11/06/24 20:08 Temperature 36.1 C L 36.2 C L Pulse Rate 65 68 Respiratory Rate 14 16 Blood Pressure 170/81 H 163/80 H Pulse Oximetry 97 97 Oxygen Delivery Room Air 11/07/24 05:09 11/07/24 08:40 Temperature 36.3 C L Pulse Rate 64 63 Respiratory Rate 18 Blood Pressure 168/74 H Pulse Oximetry 96 Oxygen Delivery Intake/Output Intake/Output: Intake & Output 11/04/24 11/05/24 11/06/24 11/07/24 23:59 23:59 23:59 23:59 Intake Total 5707 4560 5987.5 1625 Output Total 82 80 136 45 Balance 5625 4480 5851.5 1580 Meds/Results Medications: Active Medications Generic Name Dose Route Start Last Admin Trade Name Freq PRN Reason Stop Dose Admin Acetaminophen 650 mg 11/02/24 23:11 11/07/24 06:05 Acetaminophen 325 Mg Tablet PO 650 mg Q4H PRN Administration Mild Pain (1-3) or Fever Albuterol 2 puff 11/03/24 02:28 Albuterol Sulfate (*Sp) Aerosol 1 Puff INHALATION Q6HRT PRN shortness of breath or wheezing Amlodipine Besylate 10 mg 11/07/24 09:00 11/07/24 08:42 Amlodipine Besylate 10 Mg Tablet PO 10 mg DAILY STEPHANIE Administration Amoxicillin/Clavulanate Potassium 1 tablet 11/06/24 21:00 11/07/24 08:39 Amoxicillin/Clavulanate K 875-125 Mg Tab PO 11/16/24 20:59 1 tablet Q12HR STEPHANIE Administration Docosanol 1 applic 11/05/24 10:00 11/07/24 08:45 Docosanol 10% Cream 2 Gm TOPICAL 1 applic 5 TIMES DAILY STEPHANIE Administration Enoxaparin Sodium 40 mg 11/03/24 13:10 11/07/24 08:42 Enoxaparin 40 Mg/0.4 Ml Syringe SUB-Q 40 mg DAILY STEPHANIE Administration Heparin Sodium (Beef Lung) 50 units 11/05/24 09:00 11/07/24 08:43 Heparin Flush 50 Units/5 Ml Syringe IV PUSH Not Given QAM STEPHANIE Heparin Sodium (Beef Lung) 50 units 11/04/24 15:39 Heparin Flush 50 Units/5 Ml Syringe IV PUSH PRN PRN after intermittent infusion Heparin Sodium (Beef Lung) 50 units 11/04/24 15:39 Heparin Flush 50 Units/5 Ml Syringe IV PUSH PRN PRN after blood draws Heparin Sodium (Porcine) 500 units 11/04/24 15:39 Heparin Sodium Lock Flush 500 Units/5 Ml Syringe IV PUSH PRN PRN see comments below Sodium Chloride 1,000 mls @ 150 mls/hr 11/02/24 23:15 11/07/24 06:12 Normal Saline Iv IV CONT Not Given .Q6H40M STEPHANIE Indapamide 1.25 mg 11/03/24 09:00 11/07/24 08:40 Indapamide 1.25 Mg Tablet PO 1.25 mg DAILY STEPHANIE Administration Lisinopril 30 mg 11/03/24 09:00 11/07/24 08:41 Lisinopril 10 Mg Tablet PO 30 mg DAILY STEPHANIE Administration Metoprolol Tartrate 100 mg 11/03/24 02:30 11/07/24 08:40 Metoprolol Tartrate 50 Mg Tab PO 100 mg Q12HR STEPHANIE Administration Multivitamins/Minerals 15 ml 11/05/24 09:00 11/07/24 08:42 Multivit W/ Iron, Minerals 15 Ml Liquid (*Bkc) PO 15 ml DAILY STEPHANIE Administration Pantoprazole Sodium 40 mg 11/03/24 21:00 11/06/24 21:20 Pantoprazole 40 Mg Tablet PO 40 mg HS STEPHANIE Administration Potassium Chloride 40 meq 11/03/24 09:00 11/07/24 08:41 Potassium Chloride 20 Meq Er Tablet PO 40 meq DAILY STEPHANIE Administration Sodium Chloride 10 ml 11/04/24 22:00 11/07/24 06:12 Central Line Flush IV PUSH 10 ml Q8HR STEPHANIE Administration Radiology Results: ITS Impressions Chest X-Ray 11/02/24 21:05 IMPRESSION: Bibasilar atelectasis, without focal infiltrate or effusion. Labs Labs: Laboratory Results - last 24 hr 11/06/24 11/07/24 19:50 05:48 WBC 7.1 RBC 4.08 L Hgb 10.8 L Hct 34.8 L MCV 85.3 MCH 26.5 MCHC 31.0 L RDW 14.1 Plt Count 275 MPV 9.5 Sodium 139 Potassium 3.4 Chloride 100 Carbon Dioxide 31 H Anion Gap 8 BUN 7 Creatinine 0.78 Estim Creat Clear Calc 100 Estimated GFR > 60 Glucose 105 Calcium 10.7 H Total Bilirubin 0.4 AST 26 ALT 28 Alkaline Phosphatase 149 H Total Protein 7.0 Albumin 3.8 Nasal MRSA (PCR) Not detected
[2024-11-07 10:07] VITALS: O2SAT 96
--- NOTE | 2024-11-07 11:25 | P.DS_ITS ---
DS: Admitting Diagnosis Discharge Date 11/07/2024 Admitting Diagnosis bilateral breast wound infection DS: Discharge Diagnosis Discharge Diagnosis (1) S/P bilateral mastectomy: Code(s): Z90.13 - Acquired absence of bilateral breasts and nipples Status: Acute Assessment and Plan: please refer to hospital course for brief summary Monitor infection carefully, continue current treatment Reviewed culture growing E coli Started Augmentin Order nasal MRSA (2) Diabetes: Qualifiers: Diabetes mellitus type: type 2 Diabetes mellitus long term care social worker insulin use: without assisted use Diabetes mellitus complication status: without complication Qualified Code(s): E11.9 - Type 2 diabetes mellitus without complications Code(s): E11.9 - Type 2 diabetes mellitus without complications Status: Chronic Assessment and Plan: Stable on current medications, will continue current treatment. (3) Morbid obesity with body mass index (BMI) of 45.0 to 49.9 in adult: Code(s): E66.01 - Morbid (severe) obesity due to excess calories; Z68.42 - Body mass index [BMI] 45.0-49.9, adult Status: Acute Assessment and Plan: Diet and exercise (4) Primary metaplastic carcinoma of breast: Code(s): C50.919 - Malignant neoplasm of unspecified site of unspecified female breast Status: Acute Assessment and Plan: Stable (5) Triple negative breast cancer: Code(s): C50.919 - Malignant neoplasm of unspecified site of unspecified female breast; Z17.421 - Hormone receptor negative with human epidermal growth factor receptor 2 negative status Status: Acute Assessment and Plan: Stable Plan Sepsis Resolving Patient had Tachycardia, tachypnea, Leukocytosis Source of infection is wound infection at both breast following mastectomy Blood cultures no growth Discontinue ZOsyn, Vanc and Doxycycline Reviewed wound culture Pansensitive and started Augmentin Monitor Bilateral breast wound infection post mastectomy bilaterally continue above care Plastic surgery consulted Hypertensive urgency Continue Lisinopril, add amlodipine DVT prophylaxis on Sq Lovenox Full code SDM: Jm Fontana DS: Summary Hospital Course Hospital Course: 63-year-old female past medical history of hypertension and recent breast cancer status post bilateral mastectomy about 3 weeks ago presented to the ER from oncologist visits due to bilateral breasts surgical wound infection. Patient reported several days ago she started having some discharge at the sites of surgery and has been following with her surgical team and adhering the recommending wound dressing, however at her oncology visit yesterday it was noted that some areas of necrosis which prompted referral to the ER for proper eval and care. Notd vomiting and fever but denies any diarrhea, SOB and dysuria, ER eval notable for HR 117, RR 24, BP 231/97, and saturating 94% on room air, WBC 17.6, Hb 10, K 3.3, CXR showed Bibasilar atelectasis and no focal infiltrates or effusion. She was started on Zosyn and Vanc, and Plastic surgery consulted prior to admission. I assumed care on 11/07: Interval history: Patient denies any significant medical history until she was diagnosed with breast cancer on September 16, 2024. Patient underwent double mastectomy with and . As per the patient there was debate to wait for chemotherapy or undergo reconstruction. By the time patient developed a left-sided and later right-sided necrotic lesion. Patient developed fever and chills and was admitted to [facility] ED. Wound culture pansensitive. Started Augmentin until 0 7/0 2. On the day of discharge, the patient was seen and examined. Vital signs were stable. Physical exam were stable and labs were reviewed at length. Discharge instructions, medications, and follow-up appointments were discussed with the patient at length and all day questions were answered. ER warnings were given. discussed with the nurse who reported a plastic surgery team was okay to discharge with drain and follow-up with plastics as an outpatient Status at Discharge Cognitive/behavioral status at discharge: stable Time Spent with Patient Time attestation: Total time spent providing and/or coordinating discharge services: 45 minutes Exam Narrative: General: alert and comfortable Eyes: EOMI, PERRLA ENNT External ears normal, Neck is supple, no masses, Chest:s/p bilateral breast surgery Respiratory systems: Clear to auscultation Cardiovascular S1, S2, normal rhythm, no murmur, rub, or gallop; no thrill or palpable murmurs on palpation. Gastrointestinal: soft, non-tender, and non-distended abdomen with no masses; BS present Skin: bilateral breast surgical site showed purulent drainage and necrotic skin region on the left Musculoskeletal: no abnormality and no tenderness, normal ROM Neurologic: Alert and oriented x3, non focal Mental Status Exam: normal affect DS: Data Data Completed and Pending Completed studies during hospitalization: Pending at discharge 11/03/24 15:04 Surgical [PTH] Routine Surgical [PTH] Routine Labs on day of discharge: Labs from last 24 hours 11/07/24 11/06/24 05:48 19:50 WBC 7.1 RBC 4.08 L Hgb 10.8 L Hct 34.8 L MCV 85.3 MCH 26.5 MCHC 31.0 L RDW 14.1 Plt Count 275 MPV 9.5 Sodium 139 Potassium 3.4 Chloride 100 Carbon Dioxide 31 H Anion Gap 8 BUN 7 Creatinine 0.78 Estim Creat Clear Calc 100 Estimated GFR > 60 Glucose 105 Calcium 10.7 H Total Bilirubin 0.4 AST 26 ALT 28 Alkaline Phosphatase 149 H Total Protein 7.0 Albumin 3.8 Nasal MRSA (PCR) Not detected Preliminary micro results at discharge 11/03/24 15:09 Anaerobic Culture - Preliminary Breast Left 11/03/24 15:28 Anaerobic Culture - Preliminary Breast Right 11/02/24 20:39 Blood Culture - Preliminary Blood 11/02/24 20:38 Blood Culture - Preliminary Blood Imaging Radiologist's impression: ITS Impressions Chest X-Ray 11/02/24 21:05 IMPRESSION: Bibasilar atelectasis, without focal infiltrate or effusion. Discharge Plan Discharge Attending physician on discharge: Gurmeet Morales Consulting providers: Diandra Gonzalez Discharging Clinician: Gurmeet Morales Anticipated Discharge Date/Time: 11/07/24 11:30 Patient Disposition: Home Activity: as tolerated Diet: regular Wound Care Instructions: follow printed instructions Discharge Instructions: as per Plastic surgery: 1) continue drain care, strip and empty q12, bring drain log to office 2) continue augmentin until 11/16 3) dressing changed today, to remain in place until seen in office, shower from waist down only 4) f/u in office next week In the event of fever, shortness of breath or palpitation please seek immediate medical care Please undergo sleep study as outpatient Patient Instructions: Antibiotic Form Patient Language: Ukrainian Stand Alone Forms: General Discharge Information Follow-up/Referrals: Diandra Gonzalez MD [Physician] - Kim Sommers MD [Primary Care Provider] - Discharge Medications: New amoxicillin-pot clavulanate 875-125 mg tablet 1 tablet PO Q12H Qty: 20 0RF Rx Instructions: please complete the course on 11/16 docosanol [Abreva] 10 % Cream 1 applic topical 5 TIMES DAILY Qty: 30 0RF Continued albuterol sulfate 90 mcg/actuation HFA aerosol inhaler 2 puff inhalation Q4-6H PRN (Reason: shortness of breath or wheezing) Qty: 8.5 0RF silver sulfadiazine [Silvadene] 1 % cream 1 applic topical DAILY Qty: 50 0RF Rx Instructions: apply a 1.5 mm thickness (DME) blood-glucose meter, wireless Kit See Rx Instructions .ROUTE .MEDSUPPLY Qty: 1 0RF Rx Instructions: monitor blood sugar once per day in the morning before food (DME) blood sugar diagnostic Strip See Rx Instructions .ROUTE .MEDSUPPLY Qty: 90 3RF Rx Instructions: Monitor blood sugar once per day in the morning before food (DME) lancets [CareTouch Twist Lancet] 33 gauge misc See Rx Instructions .ROUTE .MEDSUPPLY Qty: 100 0RF Rx Instructions: Monitor blood sugar once per day in the morning before food lisinopril 30 mg tablet 30 mg PO DAILY Qty: 30 1RF metoprolol tartrate 100 mg tablet 100 mg PO Q12H Qty: 180 1RF indapamide 1.25 mg tablet 1.25 mg PO DAILY Qty: 90 1RF potassium chloride 20 mEq tablet extended release 20 meq PO HS Qty: 90 1RF pantoprazole 40 mg tablet,delayed release (DR/EC) 40 mg PO HS Qty: 90 1RF Date of admission: 11/02/24 23:11 Primary Care Provider: Kim Sommers Admitting Provider: Emperatriz Barnard Attending physician on admission: Emperatriz Barnard Condition: Stable
[2024-11-07 14:00] VITALS: BP 174/90; PULSE 71; RESP 18; TEMP 36.4; O2SAT 98
[2024-11-07] MEDS: HEPARIN SODIUM LOCK FLUSH 500 UNITS/5 ML SYRINGE IV PUSH (15:48)
== END 2024-11-07 16:30 | disposition home or self-care (01) | DRG 856 ==
LOC: ANHED 21:47 → ANH3MEDSUR 11-03 00:03
PROVIDERS: Internal Medicine; Plastic Surgery; Admitting Provider Internal Medicine; Emergency Provider Emergency Medicine; PCP Family Medicine; Visit Provider General Practice
PROC: 0HX5XZZ Transfer Chest Skin, External Approach (ICD-10-PCS; principal; 2024-11-03 16:00)
DX: T81.41XA Infection following a procedure, superficial incisional surgical site, initial encounter (principal); A41.9 Sepsis, unspecified organism; M96.843 Postprocedural seroma of a musculoskeletal structure following other procedure; Z68.42 Body mass index [BMI] 45.0-49.9, adult; C50.919 Malignant neoplasm of unspecified site of unspecified female breast; I16.0 Hypertensive urgency; I10 Essential (primary) hypertension; E55.9 Vitamin D deficiency, unspecified; E11.9 Type 2 diabetes mellitus without complications; K21.9 Gastro-esophageal reflux disease without esophagitis; E78.5 Hyperlipidemia, unspecified; H81.13 Benign paroxysmal vertigo, bilateral; E66.01 Morbid (severe) obesity due to excess calories; Z20.822 Contact with and (suspected) exposure to COVID-19; Z17.421 Hormone receptor negative with human epidermal growth factor receptor 2 negative status; Z90.13 Acquired absence of bilateral breasts and nipples
CPT/HCPCS: 36415; 71045; 80048; 80053; 80202; 81003; 82565; 82948; 83605; 83735; 85025; 85027; 85610; 85730; 86140; 87040; 87070; 87075; 87186; 87205; 87637; 87641; 88305; 93306; 96365; 96366; 96368; 99285; A9270; J1100; J1580; J1650; J2004; J2250; J2405; J2543; J2704; J3010; J3370; J7030; J7120

== ENCOUNTER 2024-12-27 07:24 | Outpatient (NON) | payer BC, SELFPAY ==
--- OUTSIDE RECORDS SUMMARY | 2024-12-28 07:29 | XMS_ITS | Clinical Summary ---
Author Organization [facility] [place] [facility] Address [address] [place] [address] Care Team Providers Care Manager Beauty Name Role Phone Kim Sommers MD Primary Care Provider [phone] Allergies No known active allergies Medications metoprolol [...] by mouth daily in the morning. Active ondansetron (ZOFRAN ODT) 8 mg Tablet, Rapid DissolveIndicat ions:Malignant neoplasm of upper-outer quadrant of right breast in female, estrogen receptor negative (CMS/HCC) Dissolve 1 tablet on top of tongue then swallow with saliva every 8 hours as needed for nausea or vomiting 30 Tablet 1 5 Active lidocaine-prilo marco (EMLA) 2.5-2.5 % CreamIndication s:Malignant neoplasm of upper-outer quadrant of right breast in female, estrogen receptor negative (CMS/HCC) Apply a quarter size amount to port site 30 minutes before access. 30 Gram 1 5 Active dexAMETHasone (DECADRON) 4 mg tabletIndicatio ns:Malignant neoplasm of upper-outer quadrant of right breast in female, estrogen receptor negative (CMS/HCC) Take 1 tablet by mouth BID day before, day of, and day after treatment with Paclitaxel. 6 Tablet 4 Active Active Problems No known active problems Encounters Date Type Department Care Team Description 12/19/2024 Orders Only [facility] Oncology and Hematology - Hossein Carrol [id number] Sanford Og MD Malignant neoplasm of upper-outer quadrant of right breast in female, estrogen receptor negative (CMS/HCC) 2024 8:45 AM CDT Office Visit [facility] Oncology and Hematology - Hossein Ramu [address] [place] [phone] Sanford Og MD Malignant neoplasm of upper-outer quadrant of right breast in female, estrogen receptor negative (CMS/HCC) (Primary Dx); Chronic anemia 2024 Orders Only [facility] Oncology and Hematology - Hossein [address] [place] [id number] Sanford Og MD 12/05/2024 Orders Only [facility] Oncology and Hematology - Hossein Ramu [address] [place] [address] Sanford Og MD Malignant neoplasm of upper-outer quadrant of right breast in female, estrogen receptor negative (CMS/HCC) 11/28/2024 2:00 PM CDT Office Visit [facility] Oncology and Hematology - Hossein [address] [place] [address] Sanford Og MD Malignant neoplasm of upper-outer quadrant of right breast in female, estrogen receptor negative (CMS/HCC) (Primary Dx) 11/28/2024 Refill [facility] Oncology and Hematology - Hossein [address] [place] [address] Sanford Og MD Malignant neoplasm of upper-outer quadrant of right breast in female, estrogen receptor negative (CMS/HCC) (Primary Dx) 11/24/2024 Orders Only [facility] Oncology and Hematology - Hossein [address] [place] [phone] Sanford Og MD Malignant neoplasm of upper-outer quadrant of right breast in female, estrogen receptor negative (CMS/HCC) (Primary Dx) 11/07/2024 Orders Only [facility] Oncology [facility] Hematology [facility] [address] [place] [address] Sanford Og MD 11/02/2024 10:00 AM CDT Office Visit [facility] Oncology [facility] [address] [place] [address] Sanford Og MD Malignant neoplasm of upper-outer [...] Abstract 09/30/2024 3:00 PM CDT Office Visit [facility] Oncology [facility] Hematology [facility] [address] [place] [address] Sanford Og MD Malignant neoplasm of upper-outer [...] Sign Reading Time Taken Comments Blood Pressure 173/106 2024 8:46 AM CDT Pulse 61 2024 8:42 AM CDT Temperature 36.8 C (98.2 F) 2024 8:42 AM CDT Respiratory Rate 16 2024 8:42 AM CDT Oxygen Saturation 96% 2024 8:42 AM CDT Inhaled Oxygen Concentration - - Weight 133.7 kg (294 lb 12.8 oz) 2024 8:42 AM CDT Height 177.8 cm (5' 10) 09/30/2024 2:29 PM CDT Body Mass Index 42.3 09/30/2024 2:29 PM CDT Plan of Treatment Upcoming Encounters Date Type Department Care Team (Late st Contact Info) Description 12/28/2024 11:00 AM CDT Office Visit [facility] Oncology and Hematology [facility] [address] [facility] [address] [place] [address] Sanford Og MD [address] [facility] [address] [place] [address] Health Maintenance Due Date [...] - Risk 60-74 years 1-dose series) 2022 Preventative Visit- Commercial 05/18/2024 INFLUENZA VACCINE (#1) 2024 Procedures Procedure Name Priority Date/Time Associated Diagnosis Comments IRON, TIBC, AND PERCENT SATURATION Routine 2024 4:27 PM CDT BASIC METABOLIC PANEL Routine 2024 2:32 PM CDT CBC WITH AUTODIFFERENTIAL Routine 2024 1:58 PM CDT ECHO COMPLETE Routine 11/02/2024 8:55 AM CDT from Last 3 Months Results * IRON, TIBC, AND PERCENT SATURATION (2024 4:27 PM CDT) Blood us Sanford Og MD CHEMISTRY ORDERABLES Final Resu lt * BASIC METABOLIC PANEL (2024 2:32 PM CDT) Blood us Sanford Og MD CHEMISTRY ORDERABLES Final Resu lt * CBC WITH AUTODIFFERENTIAL (2024 1:58 PM CDT) Blood us Sanford Og MD HEMATOLOGY ORDERABLES Final Res ult * ECHO COMPLETE (11/02/2024 8:55 AM CDT) us Sanford Og MD ECHO ORDERABLES Final Result from Last [address] [place] [address] [facility] [employer] Care Teams Manager Beauty Relationship Specialty Start Date End Date Kim Sommers MD [address] [place] [phone] PCP - General Family Practice 09/30/24
== END 2024-12-27 07:25 | disposition home or self-care (01) ==
PROVIDERS: PCP Family Medicine; Visit Provider Physician Assistant Surgical
DX: T81.49XA Infection following a procedure, other surgical site, initial encounter (principal); N64.89 Other specified disorders of breast
CPT/HCPCS: 87070; 87075; 87205

== ENCOUNTER 2025-01-04 04:25 | Day surgery (SDC) | payer BC, SELFPAY ==
[2025-01-03 09:41] VITALS: BMI 41.1
--- NOTE | 2025-01-03 09:52 | PC.NURSE ---
Report to the Outpatient Waiting Room, entrance under the green pavilion located off [facility], at time _1230_ on date 01/04/25_. Planned Procedure Time: _1430.? Time changes happen often and if your time is changed the preop area will call you the afternoon before. - You and your visitor will be asked to self-screen and do not enter if you have any COVID symptoms. Please call surgeon if you need to reschedule. - A mask is optional within the hospital at this time. Patients may have clear liquids (water, carbonated beverages, clear teas, apple juice) until 3 hours prior to surgery with a maximum of 20 ounces. - No food from midnight until time of surgery and no smoking, or chewing tobacco (or any form of nicotine). No chewing gum, candy or mints. - Infants may have breast milk until 4 hours before surgery, formula 6 hours prior to surgery. - Children will be allowed to drink immediately following surgery.? If applicable, please bring a bottle or sippy cup to assist with drinking. Juice, water, soda, and popsicles are readily available.? For infants on formula, please bring formula the day of surgery.? Pacifiers are allowed. Take only the following medications with a SIP of water on the morning of surgery: ____METOPROLOL DO NOT STOP ANY OF YOUR OTHER PRESCRIPTION MEDICATIONS PRIOR TO SURGERY EXCEPT THE FOLLOWING Hold all vitamins and supplements for 3 days per anesthesiologist. Medications to discontinue per physician __NONE Date to take last dose Please no make-up, nail english, hairspray, perfume, deodorant, or body powder the day of surgery.? No jewelry (including any body piercings) or valuables the day of surgery, leave them at home.? Please take a shower or bath the night before, or the morning of, surgery with an antibacterial soap.? Wear comfortable, loose fitting clothing.? Children are encouraged to wear pajamas. - Jewelry must be removed prior to entering the operating room.? Rings and piercings that are not removed may be cut off. - The hospital will not accept responsibility for valuables.? - Please leave all valuables, including medications, at home the day of surgery. If you are going home after surgery, a licensed tower truck driver must drive you home.? - NO public transportation without another adult if you receive anesthesia. - We recommend that an adult stay with you for 24 hours following discharge. - We also recommend that you do not drive, make important decision, drink alcoholic beverages, or take any drugs that were not prescribed by your health care provider for at least 24 hours after your discharge time. For Pediatric surgeries, we recommend two adults accompany the child home. Follow any additional instructions given to you from your surgeon. Telephone instructions given to _PATIENT__and asked if any additional questions and then verbalized understanding. Patient advised to call surgeon office or pre surgery nurse liaison [phone] if any additional questions.
[2025-01-04] VITALS (9 sets, daily range): BP systolic 126–176; BP diastolic 76–93; PULSE 60–89; RESP 12–20; TEMP 36.1–36.9; O2SAT 93–99
--- OUTSIDE RECORDS SUMMARY | 2025-01-04 04:29 | XMS_ITS | Clinical Summary ---
Author Organization [facility] [place] [facility] Address [address] [place] [address] Care Team Providers Care Global Cmo Name Role Phone Kim Sommers MD Primary Care Provider [phone] Allergies No known active allergies Medications metoprolol tartrate (LOPRESSOR) 100 mg tablet Take 100 mg by mouth 2 times daily. Active lisinopriL (PRINIVIL) 20 mg tablet Take 30 mg by mouth daily. Active pantoprazole (PROTONIX) 40 mg Tablet, Delayed Release (E.C.) Take 40 mg by mouth daily. Active indapamide (LOZOL) 1.25 mg tablet Take 1.25 mg by mouth daily in the morning. Active ondansetron (ZOFRAN ODT) 8 mg Tablet, Rapid DissolveIndica tions:Malignan t neoplasm of upper-outer quadrant of right breast in female, estrogen receptor negative (CMS/HCC) Dissolve 1 tablet on top of tongue then swallow with saliva every 8 hours as needed for nausea or vomiting 30 Tablet 1 5 Active lidocaine-pril ocaine (EMLA) 2.5-2.5 % CreamIndicatio ns:Malignant neoplasm of upper-outer quadrant of right breast in female, estrogen receptor negative (CMS/HCC) Apply a quarter size amount to port site 30 minutes before access. 30 Gram 1 5 Active dexAMETHasone (DECADRON) 4 mg tabletIndicati ons:Malignant neoplasm of upper-outer quadrant of right breast in female, estrogen receptor negative (CMS/HCC) Take 1 tablet by mouth BID day before, day of, and day after treatment with Paclitaxel. 6 Tablet 4 5 Active cephALEXin (KEFLEX) 500 mg capsule Take 1 Capsule (500 mg) by mouth 4 times daily for 7 days. 28 Capsule 5 01/05/20 25 Active potassium CHLORIDE (K-DUR,KLOR-CO N M20) 20 mEq Extended Release tablet Take 1 Tablet (20 mEq) by mouth 2 times daily. 60 Tablet 1 5 Active potassium CHLORIDE (KLOR-CON) 10 mEq Extended Release tablet Take 10 mEq by mouth one time only. 12/29/19 25 Discontinue d(Alternate therapy prescribed) Active Problems No known active problems Encounters Date Type Department Care Team Description 01/02/2025 Telephone [facility] Oncology and Hematology [facility] [address] [place] [phone] Sanford Og MD Surgery 01/02/2025 Orders Only [facility] Oncology and Hematology [facility] [address] [place] [phone] Sanford Og MD Malignant neoplasm of upper-outer quadrant of right breast in female, estrogen receptor negative (CMS/HCC) 12/28/2024 11:00 AM CDT Office Visit [facility] Oncology and Hematology [facility] [address] [place] [address] Sanford Og MD Malignant neoplasm of upper-outer quadrant of right breast in female, estrogen receptor negative (CMS/HCC) (Primary Dx) 12/28/2024 Orders Only [facility] Oncology and Hematology [facility] [address] [place] [phone] Sanford Og MD 12/28/2024 Refill [facility] Oncology and Hematology [facility] [address] [place] [address] Sanford Og MD 12/19/2024 Orders Only [facility] Oncology and Hematology Hossein [address] [place] [address] Sanford Og MD Malignant neoplasm of upper-outer quadrant of right breast in female, estrogen receptor negative (CMS/HCC) 2024 8:45 AM CDT Office Visit [facility] Oncology and Hematology - Hossein Brittny [address] [place] [address] Sanford Og MD Malignant neoplasm of upper-outer quadrant of right breast in female, estrogen receptor negative (CMS/HCC) (Primary Dx); Chronic anemia 2024 Orders Only [facility] Oncology and Hematology - Hossein [address] [place] [address] Sanford Og MD 12/05/2024 Orders Only [facility] Oncology and Hematology - Hossein [address]rol [address] [place] [address] Sanford Og MD Malignant neoplasm of upper-outer quadrant of right breast in female, estrogen receptor negative (CMS/HCC) 11/28/2024 2:00 PM CDT Office Visit [facility] Oncology and Hematology - Hossein Ramu [address] [place] [address] Sanford Og MD Malignant neoplasm of upper-outer quadrant of right breast in female, estrogen receptor negative (CMS/HCC) (Primary Dx) 11/28/2024 Refill [facility] Oncology and Hematology - Hossein [address] [place] [address] Sanford Og MD Malignant neoplasm of upper-outer quadrant of right breast in female, estrogen receptor negative (CMS/HCC) (Primary Dx) 11/24/2024 Orders Only [facility] Oncology and Hematology - Ohssein Brittny [address] [place] [address] Sanford Og MD Malignant neoplasm of upper-outer quadrant of right breast in female, estrogen receptor negative (CMS/HCC) (Primary Dx) 11/07/2024 Orders Only [facility] Oncology and Hematology - Hossein [address] [place] [address] Sanford Og MD 11/02/2024 10:00 AM CDT Office Visit [facility] Oncology and Hematology - Hossein [address] [place] [address] Sanford Og MD Malignant neoplasm of upper-outer quadrant of right breast in female, estrogen receptor negative (CMS/HCC) (Primary Dx) 10/07/2024 External Device Data ST[facility] ABSTRACTION Provider, Abstract 10/06/2024 External Device Data [facility] ABSTRACTION Provider, Abstract 10/05/2024 External Device Data [facility] ABSTRACTION Provider, Abstract 10/05/2024 External Device Data [facility] ABSTRACTION Provider, Abstract 10/05/2024 External Device Data [facility] ABSTRACTION Provider, Abstract from Last 3 Months Family History Medical [...] Sign Reading Time Taken Comments Blood Pressure 162/92 12/28/2024 10:57 AM CDT manual Pulse 65 12/28/2024 10:52 AM CDT Temperature 36.5 C (97.7 F) 12/28/2024 10:52 AM CDT Respiratory Rate 15 12/28/2024 10:5 2 AM CDT Oxygen Saturation 95% 12/28/2024 10: 52 AM CDT Inhaled Oxygen Concentration - - Weight 132.6 kg (292 lb 6.4 oz) 025 10:52 AM CDT Height 177.8 cm (5' 10) 09/30/2024 2:29 PM CDT Body Mass Index 41.96 09/30/2024 2:29 PM CDT Plan of Treatment Upcoming Encounters Date Type Department Care Team (Late st Contact Info) Description 01/25/2025 9:00 AM CDT Office Visit [facility] Oncology and Hematology [facility] [address] [place] [address] Mana Turpin MD [address] [place] [address] Health Maintenance Due Date Last [...] years 1-dose series) 2022 INFLUENZA VACCINE (#1) 2024 Procedures Procedure Name Priority Date/Time Associated Diagnosis Comments COMPREHENSIVE METABOLIC PANEL Routine 12/28/2024 3:45 PM CDT BASIC METABOLIC PANEL Routine 12/28/2024 12:45 PM CDT CBC WITH AUTODIFFERENTIAL Routine 2024 12:44 PM CDT IRON, TIBC, AND PERCENT SATURATION Routine 2024 4:27 PM CDT BASIC METABOLIC PANEL Routine 2024 2:32 PM CDT CBC WITH AUTODIFFERENTIAL Routine 2024 1:58 PM CDT ECHO COMPLETE Routine 11/02/2024 8:55 AM CDT from Last 3 Months Results * COMPREHENSIVE METABOLIC PANEL (12/28/2024 3:45 PM CDT) Blood us Sanford Og MD CHEMISTRY ORDERABLES Final Resu lt * BASIC METABOLIC PANEL (12/28/2024 12:45 PM CDT) Only the most recent of2 resultswithin the time period is included. Blood us Sanford Og MD CHEMISTRY ORDERABLES Final Resu lt * CBC WITH AUTODIFFERENTIAL (12/28/2024 12:44 PM CDT) Only the most recent of2 resultswithin the time period is included. Blood Sanford Og MD HEMATOLOGY ORDERABLES Final Res ult * IRON, TIBC, AND PERCENT SATURATION (2024 4:27 PM CDT) Blood Result [facility] Sanford Og MD CHEMISTRY ORDERABLES Final Resu lt * ECHO COMPLETE (11/02/2024 8:55 AM CDT) Sanford Og MD ECHO ORDERABLES Final Result from Last 3 [place] [address] [facility] [employer] Care Teams Global Cmo Relationship Specialty Start Date End Date Kim Sommers MD [address] [place] [phone] PCP - General Family Practice 09/30/24
--- OUTSIDE RECORDS SUMMARY | 2025-01-04 04:29 | XMS_ITS | Encounter Summary ---
Author Organization [facility] [employer] Address [address] [place] [address] Care Team Providers Care Childcare Center Director Name Role Phone Kim Sommers MD Primary Care Provider [phone] Encounter Details Date Type Department Care Team (Late Contact Info) Description 01/02/2025 Orders Only [facility] Oncology and Hematology [facility] [address] [place] [address] Sanford Og MD [address] [facility] [address] [place] [address] Malignant neoplasm of upper-outer quadrant of right breast in female, estrogen receptor negative (CMS/HCC) Social History Tobacco Use Types Packs/Day Years [...] Description 01/25/2025 9:00 AM CDT Office Visit [facility] Oncology and Hematology [facility] [address] [place] [address] Mana Turpin MD [address] [place] [address] documented as of this encounter Visit Diagnoses Diagnosis Malignant neoplasm of upper-outer quadrant of right breast in female, estrogen receptor negative (CMS/HCC) documented in this encounter Care Teams Childcare Center Director Relationship Specialty Start Date End Date Kim Sommers MD [address] [place] [phone] PCP - General Family Practice 09/30/24 documented as of this encounter
[2025-01-04] MEDS: LACTATED RINGERS 1,000 ML 30 ML IV CONT ×2 (13:21→16:20)
[2025-01-04] MEDS: ACETAMINOPHEN 500 MG TABLET 1000 MG PO (13:21)
[2025-01-04 13:38] LABS: Potassium 3.5 mmol/L (3.4-5.0)
--- NOTE | 2025-01-04 14:29 | WPDANESEPPF ---
Anes - Initial Pre Proc Eval Procedure: Operation Date: 01/04/25 14:30 Proposed Procedures p Left Breast Tissue Ground School Instructor Removal and Replacement - Diandra Gonzalez MD Date/Time: 01/04/25 14:29 Surgeon: Diandra Gonzalez MD Pre Op Diagnosis: Seroma Lt breast, after procedure Patient Data Age: 64 Gender: F Height: 1.78 m Weight: 132.2 kg Last Vital Signs Temp 36.9 C 01/04/25 13:24 Pulse 77 01/04/25 13:24 Resp 16 01/04/25 13:24 BP 176/93 H 01/04/25 13:24 Pulse Ox 96 01/04/25 13:24 O2 Del Method Room Air 01/04/25 13:24 Allergies Allergy/AdvReac Type Severity Reaction Status Date / Time No Known Allergies Allergy Unknown Verified 01/04/25 13:22 Home Medications ?Medication ?Instructions ?Recorded ?Confirmed ?Type albuterol sulfate 90 mcg/actuation 2 puff inhalation Q4-6H PRN 07/10/23 01/03/25 Rx aerosol inhaler shortness of breath or wheezing #8.5 grams metoprolol tartrate 100 mg tablet 100 mg PO Q12H #180 tabs 02/13/24 01/04/25 Rx pantoprazole 40 mg tablet,delayed 40 mg PO HS #90 tabs 09/06/24 01/03/25 Rx release blood sugar diagnostic #90 ea 10/26/24 12/05/24 Rx blood-glucose meter, wireless #1 ea 10/26/24 12/05/24 Rx lancets 33 gauge (CareTouch Twist #100 ea 10/26/24 12/05/24 Rx Lancet) heparin, porcine (PF) 100 unit/mL 200 unit (2 mL) IV DAILY 11/11/24 12/05/24 Rx intravenous syringe (Heparin Lock Flush (Porcine) (PF)) lisinopril 40 mg tablet 40 mg PO DAILY #90 tabs 12/05/24 01/03/25 Rx indapamide 1.25 mg tablet 1.25 mg PO DAILY #90 tabs 12/20/24 01/03/25 Rx ciprofloxacin HCl 500 mg tablet 500 mg PO Q12H #18 tabs 01/02/25 01/03/25 Rx potassium chloride 20 mEq 20 meq PO BID 01/03/25 01/03/25 History tablet,extended release hydrocodone 5 mg-acetaminophen 325 1 tablet PO Q6H PRN pain #12 tabs 01/04/25 Rx mg tablet Laboratory Tests 01/04/25 01/04/25 13:13 13:15 Potassium 3.5 mmol/L (3.4-5.0) POC Capillary Glucose 133 H mg/dl (65-105) Patient hx anesthesia problems: none Family hx anesthesia problems: none Results Review: All pre-operative results and documents have been reviewed as part of the pre-operative evaluation. [facility] Past Medical History Medical History Vitamin D deficiency Diabetes Dysfunction of right eustachian tube Chest congestion GERD with esophagitis Pre-diabetes Hyperlipidemia Essential hypertension BPPV (benign paroxysmal positional vertigo) History of one miscarriage Abscess of anal and rectal regions Surgical History Surgical History History of hysterectomy H/O dilation and curettage Tubal ligation status History of removal of cyst H/O section Family History Family History Other Family history of lung cancer Family history of malignant neoplasm Other Carcinoma of colon Diabetes mellitus Family history of cardiovascular disease Family history of coronary artery disease Social History Social History Social History: Caffeine-tea Smoking status: Never smoker Second hand tobacco smoke exposure: Yes Alcohol intake: current Alcohol use details: Maybe twice a year. Substance use: current Substance use type: marijuana Do You Feel Safe in your Home?: Yes Lack of Transportation: No Lack of Food: Never True Current Housing: I Have Housing Concerned About Future Housing: No Difficulty Paying Gas/Electric Bills: No Difficulty Paying for Meds: No Currently Unemployed: No Education: High School Diploma/GED Difficulty w/ Childcare or Family Care: Decline to Answer Living arrangements: with family Occupation/Education: retired Gender identity (if verbalized by the patient): Female Sexual Orientation (if Verbalized by the Patient): Straight or Heterosexual Spiritual care concerns: No Agree to blood products: Yes Anes - Eval Final PreProcedure Day of Procedure 01/04/25 14:29 Patient weight: morbidly obese Heart: regular rate and rhythm Lungs: clear to auscultation Airway: Mallampati scale class II Neurological: alert and oriented Last oral intake: >/= 8 hours ASA classification: III Emergent: no Anesthetic plan: proceed Anesthesia type and monitoring: general LMA and standard monitoring Results Review: All pre-operative results and documents have been reviewed as part of the pre-operative evaluation. Informed Consent: The patient's anesthetic plan and its attendant risks and benefits were discussed with the patient/family/POA. Questions were solicited and answers provided to the satisfaction of the patient/family/POA.
[2025-01-04] MEDS: ceFAZolin 3 GM/D5W 100 ML 100 ML IVPB (14:41)
--- NOTE | 2025-01-04 14:43 | WPDHPUPDATE1 ---
History and Physical Update Update Date/Time: 01/04/25 14:43 Patient seen and examined in pre-operative holding area. No interval change in medical history or symptoms. Patient remembers previous discussion of benefits and alternatives to procedure. Continues to desire to proceed with left breast steel construction worker removal, new tissue steel construction worker placement and washout and debridement and closure. I reviewed the risks including but not limited to bleeding ,infection, asymmetry, undesireable cosmetic appearance, partial/total skin loss, no change or worsening of symptoms, change in sensation, device failure, capsular contracture. I discussed the possible use of assistants and their level of participation in the case. Patient stated understanding and signed the consent form wishing to proceed
--- NOTE | 2025-01-04 15:13 | S_PTH ---
PATIENT: Mandy Fontana LOC: [facility] U#:[id number] AGE/SX: 64/F ROOM: RE01/04/[address]: Diandra Gonzalez MD : 1960 BED: DIS: 01/04/2025 SPEC #: [id number] RECD: 01/05/25 09:08 STATUS: JOSHUA REMary Jane #: [id number] CIARAN: 01/04/25 15:[address]: Diandra Gonzalez DEPT: [facility] Surgical RECD BY: Corin Richardson ENTERED: 01/05/25 09:10 SP TYPE: Surgical OTHR DR: Kim SommersMD Tissues: A - Breast Tissue B - Breast Capsule C - Implant Procedures: Gross Exam Level 1 Hematoxylin and Eosin Stain Gross and Microscopic Level 3 Gross and Microscopic Level 4
--- NOTE | 2025-01-04 15:26 | SUR.OPER ---
Left breast tissue funeral service practitioner/embalmer sent to pathology fresh by SOFIA Salazar; received in pathology by Fide at 1524
--- NOTE | 2025-01-04 15:26 | SUR.OPER ---
Culture sent to microbiology by SOFIA Salazar; received in microbiology by Fransisco at [phone]
[2025-01-04] MEDS: LIDO 1%/EPINEPHRINE 1:100,000 50 ML VIAL 30 ML INFILTRATE (15:29)
--- NOTE | 2025-01-04 16:22 | P.OP_ITS ---
Procedure Note - Detailed Date of Procedure 01/04/25 Pre-op Diagnosis Seroma Lt breast, after procedure Post-op Diagnosis Same (left breast open wound, seroma) Procedure Performed removal intact left breast tissue emergency generator mechanic, debridement and capsulectomy, washout and placement of new tissue emergency generator mechanic. Surgeon Diandra Gonzalez MD Anesthesia General Description of Procedure Patient was seen in the preop holding area where the left breast was marked and the consent form was signed. Patient was taken back to the operating room and placed on the table in the supine position. Time-out was performed with Anesthesia, surgeon, and staff a Gram patient's name, site, and surgery to be performed. SCDs were placed on the lower extremities and inflated. Antibiotics were given IV. After general anesthesia was administered the left breast was prepped and draped in the usual sterile fashion. I took my attention to the left breast where I made an elliptical incision around the open wound the left breast extending inferiorly to the inferior mammary fold. This incision was through skin and dermis with 15 blade scalpel and then excised full-thickness down to the tissue emergency generator mechanic with Bovie cautery. Culture was taken of some intracapsular seroma fluid. There was no malodor purulence. The intact tissue emergency generator mechanic was removed. Evaluation the cavity noted areas of irregular capsule with loose friable tissue matter consistent with seroma and possible biofilm. A tract approximately 1 cm in diameter was noted going inferolaterally toward the inframammary fold incision and was identified that the skin here was extremely thin and at risk of dehiscence. The decision was made to make an elliptical incision around the stent defect skin along the inframammary fold excising full-thickness. I proceeded with resection of the nonviable capsule and AlloDerm and questionable tissue. This was done with Bov ie cautery. After this gross debris the was performed a scrub breast was introduced to scrub the remaining capsule and tissue loosening of any friable tissue. Next several rounds of antibiotic irrigation including irrigation with dilute Betadine and hydrogen peroxide was performed. The left breast pocket now appeared to be healthier condition with punctate bleeding noted. Hemostasis was obtained with Bovie cautery. Be changed to new instruments and changed our gloves. Betadine and fresh towels were placed around the incisions. A 10 [place] Islander drain was placed in the left breast pocket tunneled inferiorly. Next I proceeded with taking a new Natrelle tissue emergency generator mechanic reference 133 [id number] -MX - 14-T serial [id number] from the package after rinsing it in antibiotic irrigation and the seed in the left breast pocket. A 2-0 Vicryl suture was used to secure the affix tab at the superior aspect to the superior aspect of the capsule to help maintain orientation. The deep and dermal tissue was then closed with 3-0 Vicryl suture after 1 more round of antibiotic irrigation. 2-0 nylon was used for skin closure. initial fill of this new tissue emergency generator mechanic was then to 225 cc. This appeared reasonable at this time without placing undue tension or stress on the left breast skin flaps which appeared viable with good cap refill. total length of closure for both incisions [id number] The drain was hooked to bulb suction. a dressing of Mastisol, Steri-Strips, 4x4s and Tegaderm were then applied Followed by ABDs and a breast binder. The patient was awakened from anesthesia and transferred to the recovery room in stable condition. Complications: None estimated blood loss: 50 cc disposition: Patient tolerated the procedure well and will go home later today [facility] [place] Surgery - Charge Forward: Surgery Billing ([id number])
[2025-01-04] MEDS: fentaNYL CITRATE INJ (*CRX) 100 MCG/2 ML VIAL 25 MCG IV PUSH ×2 (16:43→16:51)
[2025-01-04] MEDS: oxyCODONE HCL (*CRX) 5 MG TAB IR PO (17:40)
== END 2025-01-04 18:23 | disposition home or self-care (01) ==
PROVIDERS: Anesthesiology; PCP Family Medicine; Visit Provider Plastic Surgery
PROC: (CPT 19357; principal; 2025-01-04 14:30)
DX: T81.49XA Infection following a procedure, other surgical site, initial encounter (principal); L76.34 Postprocedural seroma of skin and subcutaneous tissue following other procedure; M79.3 Panniculitis, unspecified; L30.8 Other specified dermatitis; E78.5 Hyperlipidemia, unspecified; I10 Essential (primary) hypertension; E55.9 Vitamin D deficiency, unspecified; E11.9 Type 2 diabetes mellitus without complications; K21.9 Gastro-esophageal reflux disease without esophagitis; E66.01 Morbid (severe) obesity due to excess calories; Z68.41 Body mass index [BMI] 40.0-44.9, adult; Z79.51 Long term (current) use of inhaled steroids; Z79.891 Long term (current) use of opiate analgesic; Z98.890 Other specified postprocedural states; Z90.13 Acquired absence of bilateral breasts and nipples; Z98.51 Tubal ligation status; Z85.3 Personal history of malignant neoplasm of breast; Z80.1 Family history of malignant neoplasm of trachea, bronchus and lung; Z80.0 Family history of malignant neoplasm of digestive organs; Z82.49 Family history of ischemic heart disease and other diseases of the circulatory system
CPT/HCPCS: 19357; 19371; 36415; 82948; 84132; 87070; 87075; 87205; 88300; 88304; 88305; A9270; J0690; J1100; J1580; J2003; J2004; J2250; J2405; J2704; J3010; J7120

== ENCOUNTER 2025-02-14 11:05 | Outpatient (CLI) | payer BC, SELFPAY ==
--- NOTE | 2025-02-14 11:16 | ECHO_ITS ---
Patient Info Name: Mandy Fontana Age: 64 years : 1960 Gender: Female Ht: 70 in Wt: 295 lbs BSA: 2.63 m2 HR: 66 bpm BP: 213 / 109 mmHg Technical Quality: Fair Exam Date: 02/14/2025 11:26 AM Patient Status: O Admit Date: 02/14/2025 Exam Type: CA echo dop color flow w con Complete two-dimensional, color flow and Doppler transthoracic echocardiogram is performed with contrast to opacify the left ventricle and to improve the deliniation of the left ventricle endocardial borders. Strain analysis performed. Nuclear Plant Operator: Jonathan Yuen III Attending Provider: Spring Christina Contrast/Agitated Saline Contrast/Ag. Saline: Definity Amount: 2.00 ml Administered By: Jonathan Yuen III Existing IV Access: No IV Access Condition: patent with no signs of infiltration New IV Access: Right Site Condition: IV removed Summary 1. Left ventricular systolic function is normal, estimated at 60-65. 2. There is mildly increased left ventricular wall thickness. 3. The left ventricular diastolic function is grade I diastolic dysfunction. 4. There is mild mitral valve regurgitation. 5. There is mild tricuspid valve regurgitation. 6. Mild pulmonary hypertension, estimated pulmonary arterial systolic pressure is 37 mmHg. Left Ventricle Left ventricular chamber dimension is normal. Left ventricular systolic function is normal, estimated at 60-65. There is mildly increased left ventricular wall thickness. Left ventricular septal wall motion is normal. The left ventricular diastolic function is grade I diastolic dysfunction. Right Ventricle Right ventricular chamber dimension is normal. Right ventricular systolic function is normal. Left Atria Left atrial chamber dimension is normal. Right Atria Right atrial chamber dimension is normal. Aortic Valve The aortic valve is probable trileaflet. There is mild aortic valve sclerosis. There is no aortic valve stenosis. There is no aortic valve regurgitation. Pulmonic Valve The pulmonic valve is normal. There is no pulmonic valve stenosis. There is no pulmonic regurgitation. Mitral Valve The mitral valve has normal leaflets. There is no mitral valve stenosis. There is mild mitral valve regurgitation. Tricuspid Valve The tricuspid valve leaflets are normal. There is no significant tricuspid valve stenosis. There is mild tricuspid valve regurgitation. Mild pulmonary hypertension, estimated pulmonary arterial systolic pressure is 37 mmHg. Pericardium/Pleural The pericardium appears normal. There is no pericardial effusion. Inferior Vena Cava Normal inferior vena cava with >50% collapse upon inspiration consistent with normal right atrial pressure, 5 mmHg. Aorta The aortic root size at the sinus of Valsalva is normal. The prox ascending aorta size is normal. Left Ventricular Outflow Tract Name Value Normal LVOT 2D LVOT Diameter 2.4 cm LVOT Doppler LVOT Peak Velocity 112 cm/s LVOT Peak Gradient 5 mmHg LVOT Mean Gradient 3 mmHg LVOT VTI 24 cm LVOT VTI/AV VTI Ratio 0.7 LVOT Stroke Volume 108 ml LVOT CO 6.6 l/min LVOT CI 2.5 l/min/m2 Pulmonic Valve Name Value Normal PV Doppler PV Peak Velocity 114 cm/s PV Peak Gradient 5 mmHg PV Mean Gradient 2 mmHg Mitral Valve Name Value Normal MV Doppler MV Peak Gradient 3 mmHg MV Mean Gradient 1 mmHg MV Area (Cont Eq VTI) 4.3 cm2 MV Diastolic Function MV E Peak Velocity 77 cm/s MV A Peak Velocity 69 cm/s MV E/A 1.1 MV Decel Time (PW) 235 ms MV Annular TDI MV E/e' (Septal) 11.1 MV E/e' (Lateral) 7.1 MV E/e' (Average) 9.1 Tricuspid Valve Name Value Normal TV Regurgitation Doppler TR Peak Velocity 282 cm/s TR Peak Gradient 32 mmHg Estimated PAP/RSVP RA Pressure 5 mmHg <=5 PA Systolic Pressure 37 mmHg <36 RV Systolic Pressure 37 mmHg <36 TV Annular TDI TV Lateral Nancy s' Velocity 12.6 cm/s >=9.5 Aortic Valve Name Value Normal AV Doppler AV Peak Velocity 169 cm/s AV Peak Gradient 11 mmHg AV Mean Gradient 6 mmHg AV VTI 33 cm AV Area (Cont Eq VTI) 3.2 cm2 >=3.0 AV Area (Cont Eq Drew) 2.9 cm2 AV DI (Drew) 0.66 AV Regurgitation 2D LVOT Area 4.5 cm2 Ventricles Name Value Normal LV Dimensions 2D/MM IVS Diastolic Thickness (2D) 1.3 cm 0.6-1.0 LVID Diastole (2D) 4.0 cm 3.8-5.2 LVIW Diastolic Thickness (2D) 1.2 cm 0.6-0.9 LVID Systole (2D) 2.8 cm 2.2-3.5 LVOT Diameter 2.4 cm LV Mass (2D Cubed) 175.80 g 67.00-162.00 LV Mass Index (2D Cubed) 67 g/m2 43-95 Relative Wall Thickness (2D) 0.59 <=0.42 LV Fractional Shortening/Ejection Fraction 2D/MM LV Fractional Shortening (2D) 30 % 27-45 LV EF (2D Teichholz) 58 % LV Diastolic Volume (4C MOD) 113 ml LV EF (4C MOD) 56 % LV Diastolic Volume (2C MOD) 135 ml LV EF (2C MOD) 69 % LV Diastolic Volume (BP MOD) 127 ml 46-106 LV Diastolic Volume Index (BP MOD) 48 ml/m2 29-61 LV Systolic Volume (BP MOD) 46 ml 14-42 LV Systolic Volume Index (BP MOD) 17 ml/m2 8-24 LV EF (BP MOD) 64 % 54-74 LV Diastolic Length (4C) 8.8 cm LV Systolic Length (4C) 7.4 cm LV Stroke Volume (4C MOD) 63 ml Atria Name Value Normal LA Dimensions LA Volume (4C A-L) 66 ml LA Volume (BP A-L) 86 ml RA Dimensions RA Systolic Major [place] Length (4C) 5.2 cm 2.2-2.8 RA Area (4C) 15.8 cm2 <=18.0 EchoPAC Name Value Normal AutoEF HR_4Ch_Q (Rvws0WFP) 62 bpm LVCO_4Ch_Q (Sdkj1NNJ) 4.1 l/min LVEF_4Ch_Q (Uoxu8NZA) 50 % LVLd_4Ch_Q (Wrmp1IHK) 10.1 cm LVLs_4Ch_Q (Bzdj0DAL) 8.9 cm LVSV_4Ch_Q (Tujh2MMP) 67 ml LVVED_4Ch_Q (Iocm0SOI) 135 ml LVVES_4Ch_Q (Prdr8KUO) 67 ml HR_2Ch_Q (Fsvv9GNT) 63 bpm LVCO_2Ch_Q (Frtf7ZHQ) 2.4 l/min LVEF_2Ch_Q (Jrgm4XMC) 60 % LVLd_2Ch_Q (Ghwo2PDB) 7.0 cm LVLs_2Ch_Q (Wmwr7GDX) 6.0 cm LVSV_2Ch_Q (Fhqu2JTW) 37 ml LVVED_2Ch_Q (Wmhr7EDW) 62 ml LVVES_2Ch_Q (Uzru4PZB) 25 ml DAYO LV Apical Anterior Longitudinal Strain (DAYO) 6.0 % LV Apical Anteroseptal Longitudinal Strain (DAYO) 14.0 % LV Apical Inferior Longitudinal Strain (DAYO) -13.1 % LV Apical Lateral Longitudinal Strain (DAYO) -9.0 % LV Apical Posterior Longitudinal Strain (DAYO) 5.1 % LV Apical Septal Longitudinal Strain (DAYO) -12.7 % AV Closure (DAYO) 432 ms LV Basal Anterior Longitudinal Strain (DAYO) -12.6 % LV Basal Anteroseptal Longitudinal Strain (DAYO) -11.1 % LV Basal Inferior Longitudinal Strain (DAYO) -24.3 % LV Basal Anterolateral Longitudinal Strain (DAYO) -16.2 % LV Basal Inferolateral Longitudinal Strain (DAYO) -21.2 % LV Basal Inferoseptal Longitudinal Strain (DAYO) -17.1 % LV Global Longitudinal Strain (2C DAYO) -12.3 % LV Global Longitudinal Strain (4C DAYO) -12.7 % LV Global Longitudinal Strain (APLAX DAYO) -11.9 % LV Global Longitudinal Strain (DAYO) -12.3 % LV Mid Anterior Longitudinal Strain (DAYO) 3.8 % LV Mid Anteroseptal Longitudinal Strain (DAYO) -13.1 % LV Mid Inferior Longitudinal Strain (DAYO) -15.8 % LV Mid Anterolateral Longitudinal Strain (DAYO) -8.8 % LV Mid Inferolateral Longitudinal Strain (DAYO) -22.8 % LV Mid Inferoseptal Longitudinal Strain (DAYO) -13.4 % Report Signatures
--- OUTSIDE RECORDS SUMMARY | 2025-02-14 11:41 | XMS_ITS | Encounter Summary ---
Author Organization [facility] [employer] Address [address] [place] [address] Care Team Providers Care Supervisor Fertilizer Name Role Phone Kim Sommers MD Primary Care Provider [phone] Encounter Details Date Type Department Care Team (Late Contact Info) Description 02/08/2025 Orders Only [facility] [address] [place] [address] Sanford Og MD [address] [place] [phone] Social History Tobacco Use Types Packs/Day Years [...] Care Team (Late st Contact Info) Description 02/22/2025 11:45 AM CDT Office Visit [facility] [place] [address] [place] [address] Sanford Og MD [address] [place] [address] documented as of this encounter Procedures Procedure Name Priority Date/Time Associated Diagnosis Comments COMPREHENSIVE METABOLIC PANEL Routine 02/08/2025 3:58 PM CDT documented in this encounter Results * COMPREHENSIVE METABOLIC PANEL (02/08/2025 3:58 PM CDT) Blood Sanford Og MD CHEMISTRY ORDERABLES Final Resu lt documented in this encounter Visit Diagnoses Not on filedocumented in this encounter Care Teams Supervisor Fertilizer Relationship Specialty Start Date End Date Kim Sommers MD [address] [place] [phone] PCP - General Family Practice 09/30/24 documented as of this encounter
--- OUTSIDE RECORDS SUMMARY | 2025-02-14 11:41 | XMS_ITS | Clinical Summary ---
Author Organization [facility] Address [address] [place] [address] Care Team Providers Care Disassembler Product Name Role Phone Kim Sommers MD Primary Care Provider [phone] Allergies No known active allergies Medications metoprolol [...] with Paclitaxel. 6 Tablet 4 5 Active potassium CHLORIDE (K-DUR,KLOR-CON M20) 20 mEq Extended Release tablet Take 1 Tablet (20 mEq) by mouth 2 times daily. 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, estrogen receptor negative 01/25/2025 Chronic anemia 01/25/2025 Encounters Date Type Department Care Team Description 02/13/2025 Orders Only [facility] On[facility] and [facility] [address] [place] [id number] Sanford Og MD Malignant neoplasm of upper-outer quadrant of right breast in female, estrogen receptor negative (CMS/HCC) 02/09/2025 Orders Only [facility] Oncology and Hematology [facility] [address] [place] [address] Sanford Og MD Encounter for antineoplastic chemotherapy (Primary Dx); Malignant neoplasm of upper-outer quadrant of right breast in female, estrogen receptor negative (CMS/HCC) 02/08/2025 11:30 AM CDT Office Visit [facility] Oncology and Hematology [facility] [address] [place] [address] Sanford Og MD Malignant neoplasm of upper-outer quadrant of right breast in female, estrogen receptor negative (CMS/HCC) (Primary Dx) 02/08/2025 Orders Only [facility] Oncology and Hematology [facility] [address] [place] [address] Sanford Og MD 02/01/2025 External Device Data STL ABSTRACTION Provider, Abstract 01/31/2025 External Device Data STL ABSTRACTION Provider, Abstract 01/31/2025 External Device Data STL ABSTRACTION Provider, Abstract 01/30/2025 Orders Only [facility] Oncology and Hematology [facility] [address] [place] [address] Sanford Og MD Malignant neoplasm of upper-outer quadrant of right breast in female, estrogen receptor negative (CMS/HCC) 01/25/2025 9:00 AM CDT Office Visit [facility] Oncology and Hematology [facility] [address] [place] [phone] Mana Turpin MD Malignant neoplasm of upper-outer quadrant of right breast in female, estrogen receptor negative (CMS/HCC) (Primary Dx); Chronic anemia 01/25/2025 Orders Only [facility] Oncology and Hematology - [place] [address] [place] [address] Sanford Og MD 01/16/2025 Orders Only [facility] Oncology and Hematology - [place] [address] [place] [id number] Sanford Og MD Malignant neoplasm of upper-outer quadrant of right breast in female, estrogen receptor negative (CMS/HCC) 01/02/2025 Telephone [facility] Oncology and Hematology - [place] [address] [place] [phone] Sanford Og MD Surgery 01/02/2025 Orders Only [facility] Oncology and Hematology - [place] [address] [place] [address] Sanford Og MD Malignant neoplasm of upper-outer quadrant of right breast in female, estrogen receptor negative (CMS/HCC) 12/28/2024 11:00 AM CDT Office Visit [facility] Oncology and Hematology - [place] [address] [place] [address] Sanford Og MD Malignant neoplasm of upper-outer quadrant of right breast in female, estrogen receptor negative (CMS/HCC) (Primary Dx) 12/28/2024 Orders Only [facility] Oncology and Hematology - [place] [address] [place] [address] Sanford Og MD 12/28/2024 Refill [facility] Oncology and Hematology - [place] [address] [place] [address] Sanford Og MD 12/19/2024 Orders Only [facility] Oncology and Hematology - [place] [address] Sanford Og MD Malignant neoplasm of upper-outer quadrant of right breast in female, estrogen receptor negative (CMS/HCC) 2024 8:45 AM CDT Office Visit [facility] Oncology and Hematology - [place] [address] [place] [phone] Sanford Og MD Malignant neoplasm of upper-outer quadrant of right breast in female, estrogen receptor negative (CMS/HCC) (Primary Dx); Chronic anemia 2024 Orders Only [facility] Oncology and Hematology - [place] [address] Sanford Og MD 12/05/2024 Orders Only [facility] Oncology and Hematology - [place] [address] [place] [address] Sanford Og MD Malignant neoplasm of upper-outer quadrant of right breast in female, estrogen receptor negative (CMS/HCC) 11/28/2024 2:00 PM CDT Office Visit [facility] Oncology and Hematology - [place] [address] [place] [address] Sanford Og MD Malignant neoplasm of upper-outer quadrant of right breast in female, estrogen receptor negative (CMS/HCC) (Primary Dx) 11/28/2024 Refill [facility] Oncology and Hematology [facility] [address] [place] [phone] Sanford Og MD Malignant neoplasm of upper-outer quadrant of right breast in female, estrogen receptor negative (CMS/HCC) (Primary Dx) 11/24/2024 Orders Only [facility] Oncology and Hematology - [place] [address] [place] [address] Sanford Og MD Malignant neoplasm [...] Sign Reading Time Taken Comments Blood Pressure 180/100 02/08/2025 11:33 AM CDT Pulse 71 02/08/2025 11:30 AM CDT Temperature 36.6 C (97.8 F) 02/08/2025 11:30 AM CDT Respiratory Rate 16 02/08/2025 11:30 AM CDT Oxygen Saturation 95% 02/08/2025 11:30 AM CDT Inhaled Oxygen Concentration - - Weight 136 kg (299 lb 12.8 oz) 02/08/2025 11:30 AM CDT Height 177.8 cm (5' 10) 09/30/2024 2:29 PM CDT Body Mass Index 43.02 09/30/2024 2:29 PM CDT Plan of Treatment Upcoming Encounters Date Type Department Care Team (Late st Contact Info) Description 02/22/2025 11:45 AM CDT Office Visit [facility] Oncology and Hematology - [place] [address] [facility] [address] [place] [address] Sanford Og MD [address] [facility] [address] [place] [address] Health Maintenance Due Date Last [...] METABOLIC PANEL Routine 02/08/2025 3:58 PM CDT COMPREHENSIVE METABOLIC PANEL Routine 01/25/2025 12:31 PM CDT BASIC METABOLIC PANEL Routine 01/25/2025 12:30 PM CDT COMPREHENSIVE METABOLIC PANEL Routine 12/28/2024 3:45 PM CDT BASIC METABOLIC PANEL Routine 12/28/2024 12:45 PM CDT CBC WITH AUTODIFFERENTIAL Routine 2024 12:44 PM CDT IRON, TIBC, AND PERCENT SATURATION Routine 2024 4:27 PM CDT BASIC METABOLIC PANEL Routine 2024 2:32 PM CDT CBC WITH AUTODIFFERENTIAL Routine 2024 1:58 PM CDT from Last 3 Months Results * COMPREHENSIVE METABOLIC PANEL (02/08/2025 3:58 PM CDT) Only the most recent of3 resultswithin the time period is included. Blood us Sanford Og MD CHEMISTRY ORDERABLES Final Resu lt * BASIC METABOLIC PANEL (01/25/2025 12:30 PM CDT) Only the most recent of3 resultswithin the time period is included. Blood us Sanford Og MD CHEMISTRY ORDERABLES Final Resu lt * CBC WITH AUTODIFFERENTIAL (12/28/2024 12:44 PM CDT) Only the most recent of2 resultswithin the time period is included. Blood Sanford Og MD HEMATOLOGY ORDERABLES Final Res ult * IRON, TIBC, AND PERCENT SATURATION (2024 4:27 PM CDT) Blood Sanford Og MD CHEMISTRY ORDERABLES Final Resu lt from Last [address] [place] [place] [address] [facility] [employer] Care Teams Disassembler Product Relationship Specialty Start Date End Date Kim Sommers MD [address] [place] [phone] PCP - General Family Practice 09/30/24
--- OUTSIDE RECORDS SUMMARY | 2025-02-14 11:41 | XMS_ITS | Encounter Summary ---
Author Organization [facility] [employer] Address [address] [place] [address] Care Team Providers Care Maid Supervisor Name Role Phone Kim Sommers MD Primary Care Provider [phone] Encounter Details Date Type Department Care Team (Late Contact Info) Description 02/13/2025 Orders Only [facility] On[facility] and Hematology [facility] [address] [place] [address] Sanford Og MD [address] [place], [place] [address] [address] [place] [phone] Malignant neoplasm of upper-outer quadrant of [...] Description 02/22/2025 11:45 AM CDT Office Visit [facility] On[facility] and Hematology [facility] [address] [place] [address] [place] [address] [place] [place] [address] [employer] [address] [place] [phone] documented as of this encounter Visit Diagnoses Diagnosis Malignant neoplasm of upper-outer quadrant of right breast in female, estrogen receptor negative (CMS/HCC) documented in this encounter Care Teams Maid Supervisor Relationship Specialty Start Date End Date Kim Sommers MD [address] [place] [id number] PCP - General Family Practice 09/30/24 documented as of this encounter
--- NOTE | 2025-02-14 12:37 | IVDEFINITY ---
Prior to administration of IV Definity the patient was educated on the risks and benefits of the imaging enhancing agent including potential adverse side effects. The patient verbalized understanding. Allergies were verified. No exclusion criteria were identified and at least one of the following inclusion criteria were met: 1) physician request, 2) patient technically difficult to image (per the [place] [employer] Echocardi[employer] guidelines of two or more segments not discernable within the apical view), or 3) questionable left ventricular function. ?
[2025-02-14] MEDS: PERFLUTREN LIPID MICROSPHERES 1.5 ML VIAL DILUTED TO 10 ML TOTAL VOLUME IV PUSH (12:40)
== END 2025-02-14 11:06 | disposition home or self-care (01) ==
LOC: ANHCARD 11:06
PROVIDERS: PCP Family Medicine; Visit Provider Internal Medicine
DX: R93.1 Abnormal findings on diagnostic imaging of heart and coronary circulation (principal); I51.7 Cardiomegaly
CPT/HCPCS: C8929; Q9957

== ENCOUNTER 2025-02-28 01:14 | Day surgery (SDC) | payer BC, SELFPAY ==
--- NOTE | 2025-02-27 13:14 | SUR.PREOP ---
[facility] has started construction of its new state of the art ER which will open Spring 2026. With this, we anticipate parking may be a challenge for some our surgical patients and families. Parking spaces are limited but are available for all Surgical, obstetrics, and ER patients sharing this lot. If you arrive and find you are having a hard time finding a parking space, please note that we understand the challenges, please drive around the hospital and park near Hospital Entrance 1. When you enter this entrance, you can ask a volunteer to direct or take you back to the surgical waiting area to check in. We appreciate everyone?s understanding of these expected challenges while we build for your future. Report to the Outpatient Waiting Room, entrance under the green pavilion located off [address], at time _1130am on date ___02/28/25____. Planned Procedure Time: __130pm .? Time changes happen often and if your time is changed the preop area will call you the afternoon before. - You and your visitor will be asked to self-screen and do not enter if you have any COVID symptoms. Please call surgeon if you need to reschedule. - A mask is optional within the hospital at this time. - No food from midnight until time of surgery and no smoking, or chewing tobacco (or any form of nicotine). No chewing gum, candy or mints. Take only the following medications with a SIP of water on the morning of surgery: _(Albuterol if needed), metoprolol____ DO NOT STOP ANY OF YOUR OTHER PRESCRIPTION MEDICATIONS PRIOR TO SURGERY EXCEPT THE FOLLOWING Hold all vitamins and supplements for 3 days per anesthesiologist. Medications to discontinue per physician ____n/a___ Date to take last dose___Pt instructed to hold otc Multivitamin until after surgery.__ Please no make-up, nail portuguese, hairspray, perfume, deodorant, or body powder the day of surgery.? No jewelry (including any body piercings) or valuables the day of surgery, leave them at home.? Please take a shower or bath the night before, or the morning of, surgery with an antibacterial soap.? Wear comfortable, loose fitting clothing.? - Jewelry must be removed prior to entering the operating room.? Rings and piercings that are not removed may be cut off. - The hospital will not accept responsibility for valuables.? - Please leave all valuables, including medications, at home the day of surgery. If you are going home after surgery, a licensed medical driver must drive you home.? - NO public transportation without another adult if you receive anesthesia. - We recommend that an adult stay with you for 24 hours following discharge. - We also recommend that you do not drive, make important decision, drink alcoholic beverages, or take any drugs that were not prescribed by your health care provider for at least 24 hours after your discharge time. Follow any additional instructions given to you from your surgeon. Telephone instructions given to ____Leslie and asked if any additional questions and then verbalized understanding. Patient advised to call surgeon office or pre surgery nurse liaison [phone] if any additional questions.
[2025-02-27 13:56] VITALS: BMI 45.3
[2025-02-28] VITALS (10 sets, daily range): BP systolic 133–186; BP diastolic 65–88; PULSE 55–68; RESP 12–20; TEMP 36.4–36.8; O2SAT 94–100
--- OUTSIDE RECORDS SUMMARY | 2025-02-28 01:17 | XMS_ITS | Clinical Summary ---
Author Organization [facility] Address [address] [address] Care Team Providers Care Poultry Field Service Technician Name Role Phone Kim Sommers MD Primary Care Provider [phone] Allergies No known active allergies Medications metoprolol [...] Encounters Date Type Department Care Team Description 02/27/2025 Orders Only [facility] Oncology and Hematology [facility] [address] [place] [id number] Sanford Og MD Malignant neoplasm of upper-outer quadrant of right breast in female, estrogen receptor negative (CMS/HCC) 02/13/2025 Orders Only [facility] Oncology and Hematology - [address] [place] [id number] Sanford Og MD Malignant neoplasm of upper-outer quadrant of right breast in female, estrogen receptor negative (CMS/HCC) 02/09/2025 Orders Only [facility] Oncology and Hematology [facility] [address] [place] [address] Sanford Og MD Encounter for antineoplastic chemotherapy (Primary Dx); Malignant neoplasm of upper-outer quadrant of right breast in female, estrogen receptor negative (CMS/HCC) 02/08/2025 11:30 AM CDT Office Visit [facility] Oncology and Hematology [facility] [address] [place] [address] Sanford Og MD Malignant neoplasm of upper-outer quadrant of right breast in female, estrogen receptor negative (CMS/HCC) (Primary Dx) 02/08/2025 Orders Only [facility] Oncology and Hematology [facility] [address] [place] [address] Sanford Og MD 02/01/2025 External Device Data STL ABSTRACTION Provider, Abstract 01/31/2025 External Device Data STL ABSTRACTION Provider, Abstract 01/31/2025 External Device Data STL ABSTRACTION Provider, Abstract 01/30/2025 Orders Only [facility] Oncology and Hematology [facility] [address] [place] [id number] Sanford Og MD Malignant neoplasm of upper-outer quadrant of right breast in female, estrogen receptor negative (CMS/HCC) 01/25/2025 9:00 AM CDT Office Visit [facility] Oncology and Hematology - [address] [place] [id number] Mana Turpin MD Malignant neoplasm of upper-outer quadrant of right breast in female, estrogen receptor negative (CMS/HCC) (Primary Dx); Chronic anemia 01/25/2025 Orders Only [facility] Oncology and Hematology - [address] [place] [id number] Sanford Og MD 01/16/2025 Orders Only [facility] On[facility] and Hematology - [address] [place] [address] Sanford Og MD Malignant neoplasm of upper-outer quadrant of right breast in female, estrogen receptor negative (CMS/HCC) 01/02/2025 Telephone [facility] Oncology and Hematology - [address] [place] [address] Sanford Og MD Surgery 01/02/2025 Orders Only [facility] On[facility] and [facility]ology - [address] [place] [id number] Sanford Og MD Malignant neoplasm of upper-outer quadrant of right breast in female, estrogen receptor negative (CMS/HCC) 12/28/2024 11:00 AM CDT Office Visit [facility] On[facility] and Hematology - [address] [place] [address] Sanford Og MD Malignant neoplasm of upper-outer quadrant of right breast in female, estrogen receptor negative (CMS/HCC) (Primary Dx) 12/28/2024 Orders Only [facility] On[facility] and Hematology - [address] [place] [id number] Sanford Og MD 12/28/2024 Refill [facility] On[facility] and Hematology - [address] [place] [address] Sanford Og MD 12/19/2024 Orders Only [facility] On[facility] and H[facility]ology - [address] [place] [address] Sanford Og MD Malignant neoplasm of upper-outer quadrant of right breast in female, estrogen receptor negative (CMS/HCC) 2024 8:45 AM CDT Office Visit [facility] On[facility] and Hematology - [address] [place] [address] Sanford Og MD Malignant neoplasm of upper-outer quadrant of right breast in female, estrogen receptor negative (CMS/HCC) (Primary Dx); Chronic anemia 2024 Orders Only [facility] On[facility] and Hematology - [address] [place] [address] Sanford Og MD 12/05/2024 Orders Only [facility] Oncology and Hematology - [address] [place] [address] Sanford Og MD Malignant neoplasm of upper-outer quadrant of right breast in female, estrogen receptor negative (CMS/HCC) 11/28/2024 2:00 PM CDT Office Visit [facility] Oncology and Hematology - [address] [place] [address] Sanford Og MD Malignant neoplasm of upper-outer quadrant of right breast in female, estrogen receptor negative (CMS/HCC) (Primary Dx) 11/28/2024 Refill [facility] Oncology and Hematology - [address] [place] [address] Sanford Og MD Malignant neoplasm [...] is included. Blood us Sanford Og MD HEMATOLOGY ORDERABLES Final Res ult * IRON, TIBC, AND PERCENT SATURATION (2024 4:27 PM CDT) Blood us Sanford Og MD CHEMISTRY ORDERABLES Final Resu lt from Last 3 Months Insurance [facility] Care Teams Poultry Field Service Technician Relationship Specialty Start Date End Date Kim Sommers MD [address] [place] [phone] PCP - General Family Practice 09/30/24
--- OUTSIDE RECORDS SUMMARY | 2025-02-28 01:17 | XMS_ITS | Encounter Summary ---
Author Organization [facility] Address [address] [place] [address] Care Team Providers Care Linen Supply Load Builder Name Role Phone Kim Sommers MD Primary Care Provider [phone] Encounter Details Date Type Department Care Team (Late st Contact Info) Description 02/27/2025 Orders Only [facility] Oncology and Hematology - [address] [facility] [address] [place] [address] Sanford Og MD [address] [facility] [address] [place] [address] Malignant neoplasm of upper-outer quadrant [...] as of this encounter Plan of Treatment Not on file documented as of this encounter Visit Diagnoses Diagnosis Malignant neoplasm of upper-outer quadrant of right breast in female, estrogen receptor negative (CMS/HCC) documented in this encounter Care Teams Linen Supply Load Builder Relationship Specialty Start Date End Date Kim Sommers MD [address] [place] [phone] PCP - General Family Practice 09/30/24 documented as of this encounter
--- NOTE | 2025-02-28 08:32 | WPDHPUPDATE1 ---
History and Physical Update Update Date/Time: 02/28/25 08:32 Patient seen and examined in pre-operative holding area. No interval change in medical history or symptoms. Patient remembers previous discussion of benefits and alternatives to procedure. Continues to desire to proceed with left breast tissue expaner removal, debridement and possible capsulectomy. I reviewed the risks including but not limited to bleeding ,infection, asymmetry, undesireable cosmetic appearance, partial/total skin loss, no change or worsening of symptoms, change in sensation. I discussed the possible use of assistants and their level of participation in the case. Patient stated understanding and signed the consent form wishing to proceed
--- NOTE | 2025-02-28 08:32 | W.PM.PROC2 ---
Procedure Note - Detailed Date of Procedure 02/28/25 Pre-op Diagnosis open wound left breast Post-op Diagnosis Same Procedure Performed left breast tissue cannoneer removal, debridement and closure Surgeon Diandra Gonzalez MD Anesthesia General Description of Procedure Patient was seen in the preoperative holding area where the left breast was marked and a consent form was signed. Patient was taken back to the operating room placed on the table in the supine position. Time-out was performed with Anesthesia, surgeon, and staff agreeing on patient's name, site, and surgery to be performed. SCDs were placed on the lower extremities and inflated. Antibiotics were given IV. After general anesthesia was administered the left breast was prepped and draped in usual sterile fashion. I proceeded with using a 10 blade scalpel to make an elliptical incision around the open wound of the left breast encompassing the thinned questionably viable tissue through skin and partially through dermis and extending superiorly and inferiorly to remove expected dog-ears upon closure. Bovie cautery was then used to resect this nonviable thinned tissue on block. The tissue cannoneer was then removed and noted to intact. There was no significant fluid within the pocket or purulence fluid. There was some pseudo capsule formation. I used a scrub brush to free up this pseudo capsule to punctate bleeding tissue. Copious irrigation with antibiotic irrigation was then performed. Betadine irrigation was also utilized followed by more antibiotic irrigation. Satisfied with the debridement and washout I proceeded with placing a 10 Estonian KYLE drain. There was diffuse punctate bleeding from the capsule skin flaps and chest wall which were cauterized with Bovie and to further aid in hemostasis Ander powder was placed in the wound bed. 3-0 Vicryl was used for deep and dermal closure. 3-0 nylon was used for skin closure. Length of closure measured 8 cm. A dressing of Xeroform, 4 x 4, Tegaderm, ABDs and a surgical bra was then applied. The drain was hooked to bulb suction. The patient was awakened from anesthesia and transferred to the recovery room in stable condition. Complications: None Estimated blood loss: 20 cc Disposition: Patient tolerated the procedure well and will go home later today [facility] Billing Surgery - Charge Forward: Surgery Billing ([id number])
[2025-02-28] MEDS: LACTATED RINGERS 1,000 ML 30 ML IV CONT (12:15)
[2025-02-28] MEDS: ACETAMINOPHEN 500 MG TABLET 1000 MG PO (12:20)
--- NOTE | 2025-02-28 13:12 | WPDANESEPPF ---
Anes - Initial Pre Proc Eval Procedure: Operation Date: 02/28/25 13:30 Proposed Procedures p Left Breast Tissue Actuarial Clerk Removal, Debridement, Possible Capsulectomy - Diandra Gonzalez MD Date/Time: 02/28/25 13:12 Surgeon: Diandra Gonzalez MD Pre Op Diagnosis: s/p breast surgery Patient Data Age: 64 Gender: F Height: 1.73 m Weight: 134.5 kg Last Vital Signs Temp 36.8 C 02/28/25 12:23 Pulse 68 02/28/25 12:23 Resp 16 02/28/25 12:23 BP 186/86 H 02/28/25 12:23 Pulse Ox 98 02/28/25 12:23 O2 Del Method Room Air 02/28/25 12:23 Allergies Allergy/AdvReac Type Severity Reaction Status Date / Time No Known Allergies Allergy Unknown Verified 02/28/25 12:17 Home Medications ?Medication ?Instructions ?Recorded ?Confirmed ?Type albuterol sulfate 90 mcg/actuation 2 puff inhalation Q4-6H PRN 07/10/23 02/27/25 Rx aerosol inhaler shortness of breath or wheezing #8.5 grams metoprolol tartrate 100 mg tablet 100 mg PO Q12H #180 tabs 02/13/24 02/27/25 Rx pantoprazole 40 mg tablet,delayed 40 mg PO HS #90 tabs 09/06/24 02/27/25 Rx release blood sugar diagnostic #90 ea 10/26/24 02/07/25 Rx blood-glucose meter, wireless #1 ea 10/26/24 02/07/25 Rx lancets 33 gauge (CareTouch Twist #100 ea 10/26/24 02/07/25 Rx Lancet) heparin, porcine (PF) 100 unit/mL 200 unit (2 mL) IV DAILY 11/11/24 02/07/25 Rx intravenous syringe (Heparin Lock Flush (Porcine) (PF)) lisinopril 40 mg tablet 40 mg PO DAILY #90 tabs 12/05/24 02/27/25 Rx indapamide 1.25 mg tablet 1.25 mg PO DAILY #90 tabs 12/20/24 02/27/25 Rx potassium chloride 20 mEq 20 meq PO BID 01/03/25 02/27/25 History tablet,extended release multivitamin (Daily Multi-Vitamin 1 tablet PO DAILY 02/27/25 02/27/25 History tablet) Laboratory Tests 02/28/25 12:12 POC Capillary Glucose 128 H mg/dl (65-105) Patient hx anesthesia problems: none Family hx anesthesia problems: none Results Review: All pre-operative results and documents have been reviewed as part of the pre-operative evaluation. [facility] Past Medical History Medical History Vitamin D deficiency Diabetes Dysfunction of right eustachian tube Chest congestion GERD with esophagitis Pre-diabetes Hyperlipidemia Essential hypertension BPPV (benign paroxysmal positional vertigo) History of one miscarriage Abscess of anal and rectal regions Surgical History Surgical History History of hysterectomy H/O dilation and curettage Tubal ligation status History of removal of cyst H/O section Family History Family History Other Family history of lung cancer Family history of malignant neoplasm Other Carcinoma of colon Diabetes mellitus Family history of cardiovascular disease Family history of coronary artery disease Social History Social History Social History: Caffeine-tea Smoking status: Former smoker Tobacco type: e-cigarettes/vaping Second hand tobacco smoke exposure: Yes Additional smoking assessment comments: STOPPED VAPING 6 MONTHS AGO Alcohol intake: current Alcohol use details: 2x/year Substance use: current Substance use type: marijuana Other substance usage details: gummy or smoke after chemo Last use: 3wks ago Do You Feel Safe in your Home?: Yes Lack of Transportation: No Lack of Food: Never True Current Housing: I Have Housing Concerned About Future Housing: No Difficulty Paying Gas/Electric Bills: No Difficulty Paying for Meds: No Currently Unemployed: No Education: High School Diploma/GED Difficulty w/ Childcare or Family Care: Decline to Answer Living arrangements: alone Occupation/Education: retired Gender identity (if verbalized by the patient): Female Sexual Orientation (if Verbalized by the Patient): Straight or Heterosexual Spiritual care concerns: No Agree to blood products: Yes Anes - Eval Final PreProcedure Day of Procedure 02/28/25 13:12 Patient weight: morbidly obese Heart: regular rate and rhythm Lungs: clear to auscultation Airway: Mallampati scale class II Neurological: alert and oriented Last oral intake: >/= 8 hours ASA classification: III Emergent: no Anesthetic plan: proceed Anesthesia type and monitoring: general LMA and standard monitoring Results Review: All pre-operative results and documents have been reviewed as part of the pre-operative evaluation. Informed Consent: The patient's anesthetic plan and its attendant risks and benefits were discussed with the patient/family/POA. Questions were solicited and answers provided to the satisfaction of the patient/family/POA.
[2025-02-28] MEDS: ceFAZolin 3 GM/D5W 100 ML 100 ML IVPB (13:35)
[2025-02-28] MEDS: GENTAMICIN SULFATE IRRIGATION (13:57)
[2025-02-28] MEDS: DEXTROSE 5% IRRIGATION (13:57)
--- NOTE | 2025-02-28 14:01 | S_PTH ---
PATIENT: Mandy Fontana LOC: [facility] U#:[id number] AGE/SX: 64/F ROOM: RE02/28/[address]: Diandra Gonzalez MD : 1960 BED: DIS: 02/28/2025 SPEC #: [id number] RECD: 03/01/25 10:45 STATUS: JOSHUA REMary Jane #: [id number] CIARAN: 02/28/25 14:[address]: Diandra Gonzalez DEPT: [facility] Surgical RECD BY: Corin Richardson ENTERED: 03/01/25 10:47 SP TYPE: Surgical OTHR DR: Kim SommersMD Tissues: A - Skin B - Implant Procedures: Gross Exam Level 1 Hematoxylin and Eosin Stain Gross and Microscopic Level 4
[2025-02-28] MEDS: fentaNYL CITRATE INJ (*CRX) 100 MCG/2 ML VIAL 25 MCG IV PUSH ×4 (14:50→15:25)
[2025-02-28] MEDS: ONDANSETRON INJ 4 MG/2 ML VIAL IV PUSH (16:35)
== END 2025-02-28 16:58 | disposition home or self-care (01) ==
PROVIDERS: PCP Family Medicine; Visit Provider Plastic Surgery
PROC: (CPT 11971; principal; 2025-02-28 13:30)
DX: N64.59 Other signs and symptoms in breast (principal); L30.8 Other specified dermatitis; E78.5 Hyperlipidemia, unspecified; I10 Essential (primary) hypertension; E11.9 Type 2 diabetes mellitus without complications; K21.9 Gastro-esophageal reflux disease without esophagitis; E55.9 Vitamin D deficiency, unspecified; F12.90 Cannabis use, unspecified, uncomplicated; E66.01 Morbid (severe) obesity due to excess calories; Z68.42 Body mass index [BMI] 45.0-49.9, adult; Z79.51 Long term (current) use of inhaled steroids; Z98.890 Other specified postprocedural states; Z98.51 Tubal ligation status; Z90.13 Acquired absence of bilateral breasts and nipples; Z98.82 Breast implant status; Z87.891 Personal history of nicotine dependence; Z85.3 Personal history of malignant neoplasm of breast; Z92.21 Personal history of antineoplastic chemotherapy; Z80.1 Family history of malignant neoplasm of trachea, bronchus and lung; Z80.0 Family history of malignant neoplasm of digestive organs; Z82.49 Family history of ischemic heart disease and other diseases of the circulatory system
CPT/HCPCS: 11971; 13101; 13102; 82948; 88300; 88305; A9270; J0690; J1171; J1580; J2003; J2004; J2250; J2405; J2704; J3010; J7120